=== PATIENT | male | born 1945 | race Caucasian/White ===

== ENCOUNTER 2019-09-06 11:03 | Outpatient (CLI) | payer OTHER, SELFPAY ==
--- NOTE | ~2019-09-06 | CT_ITS ---
EXAMINATION:CT lung screening DATE: 09/06/2019 11:34 INDICATION: Personal history of tobacco dependence. Smoker who quit less than 15 years ago with 30 pa ck year history. TECHNIQUE: Computed tomography (CT) of the chest was performed without intravenous contrast. Automate d exposure control and iterative reconstruction technique were employed. The dose-length product (DLP ) was 144.01 mGy-cm. COMPARISON: Chest CT 09/04/2018 FINDINGS: There is severe emphysema. There are a few scattered 1-2 mm pulmonary nodules. No pleural e ffusion. The heart size is normal. There are coronary artery calcifications. No pericardial effusion. There is chronic mild mediastinal lymphadenopathy, likely reactive. There is a large sliding hiatal hernia. There is a 4.0 cm cyst in left kidney. There is severe cervical, thoracic, and lumbar spondyl osis. There is an old healed fracture of the sternum. IMPRESSION: 1. Lung-RADS category 2: Benign appearance or behavior. Continue annual screening with noncontrast lo w-dose chest CT in 12 months. 2. Large sliding hiatal hernia. Reviewed, dictated and finalized at location A. AND FROST INSULATOR IMPRESSION: 1. Lung-RADS category 2: Benign appearance or behavior. Continue annual screeni ng with noncontrast low-dose chest CT in 12 months. 2. Large sliding hiatal hernia.
== END 2019-09-06 11:04 | disposition home or self-care (01) ==
LOC: ANHIMG 11:11
PROVIDERS: PCP Internal Medicine
DX: Z12.2 Encounter for screening for malignant neoplasm of respiratory organs (principal); Z87.891 Personal history of nicotine dependence; K44.9 Diaphragmatic hernia without obstruction or gangrene
CPT/HCPCS: G0297

== ENCOUNTER 2019-12-26 10:05 | Outpatient (CLI) | payer OTHER, SELFPAY ==
[2019-12-26 10:47] LABS: Basophils Absolute Auto 0.1 K/mm3 (0.0-0.1); Eosinophils Absolute Auto 0.4 K/mm3 (0-0.3); Eosinophils Percent Auto 5.7 % (0-4.4); Hematocrit 39.6 % (42.0-52.0); Hemoglobin 12.1 g/dL (14.0-18.0); Immature Granulocyte Absolute 0.03 K/mm3 (0.00-0.031); Immature Granulocyte Percent A 0.4 % (0-0.5); Lymphocytes Absolute Auto 1.56 K/mm3 (0.9-3.2); Lymphocytes Percent Auto 21.8 % (18.3-44.2); Mean Corpuscular HGB Conc 30.6 g/dl (32-36); Mean Corpuscular Hemoglobin 22.2 pg (26-34); Mean Corpuscular Volume 72.5 fl (80-100); Mean Platelet Volume 9.5 fl (7.4-10.4); Monocytes Absolute Auto 0.8 K/mm3 (0.1-0.6); Monocytes Percent Auto 10.9 % (2.6-8.5); Neutrophils Absolute Auto 4.3 K/mm3 (1.3-6.7); Neutrophils Percent Auto 60.2 % (45.5-73.1); Platelet Count Result 323 k/mm3 (150-375); Red Blood Count 5.46 M/mm3 (4.6-6.20); White Blood Count 7.2 K/mm3 (4.5-10.0)
[2019-12-26 11:09] LABS: LDL Cholesterol Direct 44 mg/dL
[2019-12-26 11:10] LABS: Alanine Aminotransferase 29 U/L (4-50); Albumin Level 4.6 g/dL (3.5-5.1); Alkaline Phosphatase 94 U/L (38-126); Aspartate Amino Transferase 37 U/L (17-59); Bilirubin,Total 0.8 mg/dL (0.2-1.3); Blood Urea Nitrogen 14 mg/dL (9-20); Calcium 9.8 mg/dL (8.4-10.2); Carbon Dioxide 21 mmol/L (22-30); Chloride 106 mmol/L (98-107); Cholesterol 100 mg/dL (0-200); Estimated Glomerular Filt Rate > 60; Glucose 120 mg/dL (75-110); HDL Direct 35 mg/dL; Potassium 4.5 mmol/L (3.4-5.0); Sodium 139 mmol/L (137-145); Triglycerides 77 mg/dL (<150)
[2019-12-26 11:34] LABS: Hemoglobin A1C 6.6 % (<5.7)
[2019-12-26 12:00] LABS: Iron 48 ug/dL (49-181)
[2019-12-26 12:09] LABS: Percent Iron Saturation 11 % (20-50)
[2019-12-26 13:21] LABS: Creatinine Urine 42.6 mg/dL
[2019-12-26 13:26] LABS: MALB Creatinine Ratio 20.2 mg/g (0-30); Microalbumin Urine Random 8.6 mg/L (0-16.7)
[2019-12-26 13:27] LABS: Vitamin D 25 Hydroxy > 126.0 ng/mL
== END 2019-12-26 10:06 | disposition home or self-care (01) ==
LOC: ANHLAB 10:07
PROVIDERS: PCP Internal Medicine; Visit Provider Internal Medicine
DX: D50.9 Iron deficiency anemia, unspecified (principal); E78.2 Mixed hyperlipidemia; E11.65 Type 2 diabetes mellitus with hyperglycemia; I10 Essential (primary) hypertension; Z79.899 Other long term (current) drug therapy
CPT/HCPCS: 36415; 80053; 80061; 82043; 82306; 82728; 83036; 83540; 83550; 84443; 85025

== ENCOUNTER 2020-01-23 01:53 | Outpatient (CLI) | payer OTHER, SELFPAY ==
[2020-01-23 18:39] LABS: SARS-CoV-2 RNA PCR Negative
== END 2020-01-23 01:54 | disposition home or self-care (01) ==
LOC: ANHCOVIDDT 01:54
PROVIDERS: PCP Internal Medicine; Visit Provider Orthopaedic Surgery
DX: Z01.812 Encounter for preprocedural laboratory examination (principal); Z11.59 Encounter for screening for other viral diseases
CPT/HCPCS: 87635; C9803; U0003

== ENCOUNTER 2020-01-23 09:14 | Outpatient (CLI) | payer OTHER, SELFPAY ==
--- NOTE | ~2020-01-23 | XR_ITS ---
EXAMINATION: XR chest 2V DATE: 01/23/2020 09:34 INDICATION: Chronic obstructive pulmonary disease. Preop. TECHNIQUE: Frontal and lateral views of the chest were obtained. COMPARISON: Chest 2 views 04/13/2011, chest CT 09/06/2019 FINDINGS: The lungs demonstrate lucencies, diffuse interstitial opacities, and architectural distorti on, consistent with emphysema. No pleural effusion or pneumothorax. The heart size is normal. There i s mild chronic anterior wedging of multiple vertebral bodies. IMPRESSION: 1. Severe emphysema. Reviewed, dictated and finalized at location A. IMPRESSION: 1. Severe emphysema.
--- NOTE | 2020-01-23 09:15 | ECG_ITS ---
Measurements Intervals [place] Rate: 63 P: 34 WY: 149 QRS: -80 QRSD: 152 T: 36 QT: 436 QTc: 447 Interpretive Statements SINUS RHYTHM RIGHT BUNDLE BRANCH BLOCK LEFT ANTERIOR FASCICULAR BLOCK BASELINE ARTIFACT- I, II, AVR, AVL, AVF, V2-V3 ABNORMAL ECG Electronically Signed On 01-23-2020 11:20:19 CDT by El Sauer D.O.
== END 2020-01-23 09:15 | disposition home or self-care (01) ==
LOC: ANHSURGERY 09:15
PROVIDERS: PCP Internal Medicine; Visit Provider Orthopaedic Surgery
DX: E11.42 Type 2 diabetes mellitus with diabetic polyneuropathy (principal); S82.892A Other fracture of left lower leg, initial encounter for closed fracture; X58.XXXA Exposure to other specified factors, initial encounter; J43.9 Emphysema, unspecified; I45.10 Unspecified right bundle-branch block; I44.4 Left anterior fascicular block
CPT/HCPCS: 71046; 93005

== ENCOUNTER 2020-01-25 02:34 | Day surgery (SDC) | payer OTHER, SELFPAY ==
[2020-01-22 12:40] VITALS: BMI 24.3
--- NOTE | 2020-01-23 15:02 | HP_ITS ---
DATE OF SERVICE: DATE OF SURGERY: 01/25/2020. ADMITTING DIAGNOSIS: Displaced left lateral malleolus fracture. HISTORY OF PRESENT ILLNESS: The patient is a 74-year-old male, patient of Dr. Guzman, presents today for ORIF of his left lateral malleolus fracture. He injured it at home on 01/15. He has a history of a drop foot on his left side. He was not wearing his typical AFO brace and his toe caught causing him to twist his ankle and fall. He went to urgent care 2 days later due to pain in the ankle as well as some swelling. He showed a mildly displaced Bearden B lateral malleolus fracture. He was seen in the office by Dr. Henley on 01/20. At that time, we did a stress view of the ankle, which showed widening of the medial clear space. Because of this, it is considered an unstable fracture. Dr. Henley discussed with him that this is best treated surgically with ORIF of the lateral malleolus with possible syndesmotic fixation as well. PAST MEDICAL HISTORY: He does wear AFOs on both of his lower extremities for the last 10-15 years. He has not been diagnosed for the reason of the weaknesses in his hands as well as his legs. Does have history of diabetes as well as hypertension. CURRENT MEDICATIONS: Takes: 1. Atorvastatin 80 mg daily. 2. Citalopram 20 mg daily. 3. Januvia 50 mg daily. 4. Lisinopril 5 mg daily. 5. Metoprolol 25 mg daily. 6. Omeprazole 20 mg daily. 7. Primidone 50 mg daily. 8. Tamsulosin 0.4 mg daily. ALLERGIES: NO KNOWN DRUG ALLERGIES. FAMILY HISTORY: Noncontributory. SOCIAL HISTORY: He is a former smoker, he quit approximately 12 years ago. PHYSICAL EXAMINATION: GENERAL: He is a 74-year-old male, he is very alert, pleasant, no distress. VITAL SIGNS: Other vital signs per nursing sheet on the morning of surgery. HEENT: Grossly normal. LUNGS: Clear bilaterally. HEART: Regular rate and rhythm. EXTREMITIES: He has pronounced atrophy of both calves, pronounced atrophy in both hands and distal forearms as well. Denies numbness to light touch of his lower extremities. He has moderate to severe tenderness over the lateral malleolus at the junction of the lateral malleolus and fibula. There is evidence of instability to medial, lateral translation of the foot relative to the leg. Suxh-jl-[id number] swelling circumferentially around the ankle. No swelling in the foot or calf. He has no active ankle dorsiflexion or great toe dorsiflexion. He has a 4/5 inversion, eversion, absent knee jerks bilaterally. He is 5 feet 7 inches, 155 pounds. 2+ dorsalis pedis pulse in the foot. IMAGING DATA: X-rays show a Bearden B almost a Bearden C distal fibular fracture with again on stress view showed widening of the medial clear space to 5.5 mm. IMPRESSION: The patient has an unstable lateral malleolus fracture. Again, Dr. Henley discussed with him this would be best treated with ORIF of the lateral malleolus and then possible syndesmotic fixation if needed. Surgical procedure as well as risks and complications were discussed. All questions were answered, we will proceed. The patient will see his primary care doctor for presurgical clearance. Oniel I MT: Cristobal
[2020-01-25] VITALS (9 sets, daily range): BP systolic 105–125; BP diastolic 60–87; PULSE 65–81; RESP 8–20; TEMP 36.9–37.2; O2SAT 92–96
--- NOTE | ~2020-01-25 | XR_ITS ---
EXAMINATION: XR surgery orthopedic EXAM DATE: 01/25/2020 15:31 INDICATION: Left ankle ORIF. TECHNIQUE: Fluoroscopy used during XR surgery orthopedic performed by Dr. Sarthak Henley MD. The DAP for this procedure was 4.1 mGym2. FINDINGS: There is a left distal fibular diaphyseal oblique fracture into the syndesmosis. Final 2 i mages demonstrate a fibular plate with supporting screws bridging the fracture with the mortise appea ring in anatomic alignment. Correlate with procedure note. IMPRESSION: Fluoroscopy used during XR surgery orthopedic. Reviewed, dictated and finalized at location A.
[2020-01-25] MEDS: ACETAMINOPHEN 500 MG TABLET 1000 MG PO (11:28)
[2020-01-25] MEDS: LACTATED RINGERS 1,000 ML 30 ML IV CONT ×2 (11:38→15:53)
[2020-01-25] MEDS: KETOROLAC 15 MG/ML VIAL (*BKC) IV PUSH (11:41)
[2020-01-25 11:46] LABS: Glucose Point of Care 130 (65-105)
--- NOTE | 2020-01-25 12:25 | WPDANESEPPF ---
Anes - Initial Pre Proc Eval Procedure: Operation Date: 01/25/20 13:00 Proposed Procedures p Open Reduction Internal Fixation Left Lateral Malleolus Fracture - Sarthak Henley MD Date/Time: 01/25/20 12:25 Surgeon: Sarthak Henley MD Pre Op Diagnosis: Displaced Left Lateral Malleolus Fracture Patient Data Age: 74 Gender: M Height: 5 ft 7 in Weight: 70.45 kg Last Vital Signs Temp 37.2 C 01/25/20 12:06 Pulse 81 01/25/20 12:06 Resp 20 01/25/20 12:06 BP 125/75 01/25/20 12:06 Pulse Ox 94 01/25/20 12:06 Allergies Allergy/AdvReac Type Severity Reaction Status Date / Time No Known Allergies Allergy Verified 01/25/20 11:03 Home Medications Medication Instructions Recorded Confirmed Type albuterol sulfate 90 mcg/actuation 1 puff INHALATION Q4H PRN 08/21/19 01/25/20 History aerosol inhaler aspirin 81 mg chewable tablet 81 mg PO DAILY 08/21/19 01/25/20 History blood sugar diagnostic #10 each 08/21/19 09/04/19 History blood-glucose meter #1 each 08/21/19 09/04/19 History atorvastatin 80 mg tablet 80 mg PO DAILY #90 tablet 09/04/19 01/25/20 Rx metoprolol tartrate 25 mg tablet 25 mg PO DAILY #90 tablet 10/26/19 01/25/20 Rx citalopram 20 mg tablet See Rx Instructions .ROUTE 11/27/19 01/25/20 Rx .COMPLEX #90 tablet lisinopril 5 mg tablet 5 mg PO DAILY #90 tablet 12/05/19 01/25/20 Rx lancets See Rx Instructions .ROUTE 12/07/19 01/22/20 Rx .COMPLEX #200 each fluticasone fur. 100 mcg-umeclid 1 inhalation INHALATION DAILY #60 12/21/19 01/25/20 Rx 62.5 mcg-vilant 25 mcg each inhalat.powder sitagliptin 50 mg tablet 25 mg PO DAILY #90 tablet 12/21/19 01/25/20 Rx primidone 50 mg tablet See Rx Instructions .ROUTE 01/03/20 01/25/20 Rx .COMPLEX #360 tablet tamsulosin 0.4 mg capsule See Rx Instructions .ROUTE 01/03/20 01/25/20 Rx .COMPLEX #90 cap omeprazole 20 mg capsule,delayed See Rx Instructions .ROUTE 01/21/20 01/25/20 Rx release .COMPLEX #90 cap calcium carbonate-vitamin D3 2 tablet PO DAILY 01/22/20 01/25/20 History [Caltrate with Vitamin D3] Laboratory Tests 01/25/20 11:44 POC Capillary Glucose 130 mg/dl H mg/dl (65-105) Patient hx anesthesia problems: none Family hx anesthesia problems: none PMFSH Past Medical History Medical History Abdominal aortic aneurysm (AAA) 3.0 cm to 5.5 cm in diameter in male Atherosclerotic heart disease of [place] coronary artery without angina pectoris Bilateral arm fractures Contusion of toe with damage to nail Essential hypertension Foot drop, bilateral History of [place] (myocardial infarction) Major 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 Neuropathy Peripheral neuropathy Type 2 diabetes mellitus with diabetic polyneuropathy, without long-term current use of insulin Surgical History Surgical History History of heart artery stent Family History Family History Mother Patient's mother is , Onset Age: 75 Father Family history of chronic obstructive pulmonary disease Social History Social History Smoking status: Former smoker Smoking end date: 07/04/07 Additional smoking assessment comments: HX OF 1PK/DAY/AGE 14 TO 60 Alcohol intake: current Alcohol use details: SOCCIALLY ON WEEKENDS Living arrangements: with family Gender identity (if verbalized by the patient): Male Spiritual care concerns: No Anes - Eval Final PreProcedure Day of Procedure 01/25/20 12:25 Patient weight: normal Heart: regular rate and rhythm Lungs: decreased breath sounds Airway: Mallampati scale class II Neurological: alert and oriented Last oral intake: >/= 8 hours ASA classification: IV Emergent: no Anesthetic plan: proceed Anesthesia type and monitoring: general LMA and standar
--- NOTE | 2020-01-25 13:20 | WPDHPUPDATE1 ---
History and Physical Update Update Date/Time: 01/25/20 13:20 History and Physical has been reviewed, including an updated exam of the patient. There are NO changes in the patient's condition. Risks, benefits, and alternatives have been discussed and questions answered. Patient agrees to proceed with procedure. Also: Patient does have severe emphysema. Uses O2 at home. Also he walked into hospital today with cane.
[2020-01-25] MEDS: ceFAZolin 2 GM/D5W 50 ML 2 GM/50 ML BAG IVPB (13:23)
[2020-01-25] MEDS: ceFAZolin SODIUM 1 GM VIAL IRRIGATION (13:23)
--- NOTE | 2020-01-25 15:55 | P.OPB_ITS ---
Procedure Note - Brief Procedure Note - Brief Date of procedure: 01/25/20 Pre-op diagnosis: Displaced Left Lateral Malleolus Fracture Procedure performed: Open reduction internal fixation left lateral malleolus distal fibular shaft fracture. Syndesmotic clear space stable after internal f ixation Implants: Arthrex 1/3 tubular locking plate Anesthesia: GLMA Surgeon: Sarthak Henley MD Estimated blood loss (mL): 10 Tourniquet time (min): 70 Drains: No Packing: No Pathology: none sent Complications: No immediate complications Condition: stable Disposition: PACU
[2020-01-25 16:08] LABS: Glucose Point of Care 88 (65-105)
--- NOTE | 2020-01-25 16:12 | OP_ITS ---
DATE OF PROCEDURE: 01/25/2020 PREOPERATIVE DIAGNOSIS: Displaced high Bearden B left lateral malleolus fracture with medial clear space widening, left ankle. POSTOPERATIVE DIAGNOSIS: Displaced high Bearden B left lateral malleolus fracture with medial clear space widening, left ankle. PROCEDURE: Open reduction, internal fixation, left distal fibular shaft fracture. DESCRIPTION OF PROCEDURE: The patient was brought to the operating room and general anesthesia was administered. He received weight-based vancomycin and 2 g of Ancef preoperatively. The left leg was prepped and draped in usual fashion after placing a bump under his buttock and a soft towel roll under the knee. The limb was exsanguinated and tourniquet elevated to 250 mmHg. A 4 inch longitudinal incision was made. The main branch of the superficial branch of the peroneal nerve ran parallel to the edge of the fibula just 5 mm anterior to it, and this was carefully mobilized and protected throughout the procedure. The fracture was cleared of hematoma and an anatomic reduction was achieved with a small bone clamp. The plane of the fracture was in an oblique direction and the bone was very narrow in this area, and we therefore used a 2.0 mini frag screw to achieve interfragmentary fixation. This was directed from posterolateral to anteromedial perpendicular to the fracture site and in cortical bone and obtained very good purchase. With anatomic reduction achieved, we then chose a 7 hole 1/3 tubular plate from the Arthrex set. This was a locking plate and we found that the best placement of the plate was going to be around the posterior surface of the proximal portion of the fibula and the lateral surface of the distal portion of the fibula and this required a great deal of complex plate bending, which was achieved successfully. We placed a locking screw distally and a cortical compression screw from the 2nd from most proximal hole and this compressed the plate well to the bone and did not move the fracture line. All but the 2nd from last screw holes were then filled with locking screws. We then brought in fluoro, and using a perfect mortise where the syndesmotic clear space could be well visualized, a valgus stress was applied, which increased the medial space about a millimeter, but there was no widening of the syndesmosis, and therefore I felt that the need for a syndesmotic screw was not present as his syndesmosis was stable. The tourniquet had been let down once we had a couple of screws in the plate. The wound was again thoroughly irrigated with antibiotic solution as it was prior to placement of the plate after bending, and the skin was carefully closed with 3-0 subcutaneous Vicryl and skin glue taking care to avoid injury to the superficial branch of peroneal nerve, which was in excellent condition and was not entrapped in any way by the plate. A well-padded posterior splint was applied. The patient transferred to postop recovery room in good condition. No known complications. Oniel I MT: Cristobal
== END 2020-01-25 18:00 | disposition home or self-care (01) ==
PROVIDERS: PCP Internal Medicine; Visit Provider Orthopaedic Surgery
PROC: (CPT 27784; principal; 2020-01-25 13:00)
DX: S82.62XA Displaced fracture of lateral malleolus of left fibula, initial encounter for closed fracture (principal); M21.372 Foot drop, left foot; I10 Essential (primary) hypertension; E11.42 Type 2 diabetes mellitus with diabetic polyneuropathy; Z79.84 Long term (current) use of oral hypoglycemic drugs; I71.4 Abdominal aortic aneurysm, without rupture; J43.9 Emphysema, unspecified; I25.10 Atherosclerotic heart disease of native coronary artery without angina pectoris; I25.2 Old myocardial infarction; Z79.899 Other long term (current) drug therapy; Z79.82 Long term (current) use of aspirin; Z87.891 Personal history of nicotine dependence; Z95.5 Presence of coronary angioplasty implant and graft; X50.1XXA Overexertion from prolonged static or awkward postures, initial encounter; W18.30XA Fall on same level, unspecified, initial encounter
CPT/HCPCS: 27784; 71046; 87635; 93005; A9270; C1713; C9803; J0690; J1170; J1885; J2250; J2405; J2704; J3010; J3370; J7120; U0003

== ENCOUNTER 2020-03-12 12:15 | Outpatient (RCR) | payer OTHER, SELFPAY ==
--- NOTE | 2020-03-12 13:26 | PTOPEVAL ---
Thank you for referring Aime Arriaga to [facility].? Pt seen for therapy evaluation to provide patient with a HEP. He demonstrates indep with HEP. No additional therapy planned at this time. Will hold chart open for 2 wk. Please review, sign, date and return this plan of care AIDEE. I agree with and certify that the following plan of care is medically necessary. Referring Physician Date Admitting Provider: Attending Provider: Sarthak Henley MD *PT Outpatient Evaluation Start: 03/12/20 12:27 Freq: Status: Active Protocol: Document 03/12/20 12:28 CAP (Rec: 03/12/20 13:11 CAP [id number]) Therapy Assessment Status Assessment Status Assessment Status Evaluation Outpatient Past Medical History Past Medical History Source of Past Medical History Patient,Recalled from Previous Visit, Confirmed with Patient /Family Neurological History Hx Other Neurological Disorders Yes: PERIPHERAL NEUROPATHY, BILATEAL FOOT DROPP - WEARS BRACES Cardiovascular History Hx Aneurysm Yes: AROTIC & POPLITEAL - NOTE FORM DR. 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 Respiratory History Hx Emphysema Yes Gastrointestinal History Hx Gastrointestinal Disorders No Significant History Genitourinary History Hx Benign Prostatic Hyperplasia Yes Musculoskeletal History Hx Arthritis Yes: HANDS Hx Fractures Yes: FX LT ANKLE - HX OF RT ARM, LT ARM Hx Orthopedic Surgery Yes: ORIF RT ARM, ORIF LT ARM, LT ELBOW, left ankle Hx Other Musculoskeletal Disorders Yes: BILATERAL FOOT DROPP- WEARS BRACES Hematological History Hx Anemia Yes Endocrine History Hx Diabetes Yes HEENT History Hx Other HEENT Disorders Yes: GLASSES, BILATERAL HEARING AIDS Integumentary History Hx Eczema Yes: HX OF ARMS, CHEST & BACK Reproductive History Hx Reproductive Disorders No Significant History Psychosocial History Hx Anxiety Yes Hx Depression Yes: HX OF Pain History History of Any Previous or Ongoing No Significant History Instance of Pain Anesthesia History Hx Anesthesia Reactions No Significant History Evaluation Information Problem Diagnosis s/p left ankle ORIF Onse
--- NOTE | 2020-04-07 09:15 | PCPTNOTE ---
Admitting Provider: Attending Provider: Sarthak Henley MD Patient:Aime Arriaga Date of :1945 Discharge Note Patient has not returned for any further treatments since 03/12/2020, therefore he will be discharged at this time. Patient?s initial visit was on 03/12/2020 12:30 and he had a total of 1 visits. He in independent with a home exercise program. He is indep with his ambulation with a cane and ankle brace. He did not require additional skilled therapy services. Thank you for referring this patient to [facility]. Please review, sign, date and return this discharge summary AIDEE. I have been updated about the patient's current status and I agree with discharge from the above service at this time. Referring Physician Date
== END 2020-04-07 15:14 | disposition home or self-care (01) ==
LOC: ANHPT 12:15
PROVIDERS: PCP Internal Medicine; Visit Provider Orthopaedic Surgery
DX: S82.401D Unspecified fracture of shaft of right fibula, subsequent encounter for closed fracture with routine healing (principal)
CPT/HCPCS: 97110; 97161

== ENCOUNTER 2020-03-12 13:44 | Outpatient (CLI) | payer OTHER, SELFPAY ==
[2020-03-12 14:18] LABS: Basophils Percent Auto 0.3 % (0.2-1.2); Eosinophils Absolute Auto 0.1 K/mm3 (0-0.3); Eosinophils Percent Auto 1.1 % (0-4.4); Hematocrit 40.9 % (42.0-52.0); Hemoglobin 12.7 g/dL (14.0-18.0); Immature Granulocyte Absolute 0.09 K/mm3 (0.00-0.031); Lymphocytes Absolute Auto 1.23 K/mm3 (0.9-3.2); Lymphocytes Percent Auto 13.7 % (18.3-44.2); Mean Corpuscular HGB Conc 31.1 g/dl (32-36); Mean Platelet Volume 9.3 fl (7.4-10.4); Monocytes Absolute Auto 0.4 K/mm3 (0.1-0.6); Monocytes Percent Auto 3.9 % (2.6-8.5); Neutrophils Absolute Auto 7.2 K/mm3 (1.3-6.7); Platelet Count Result 364 k/mm3 (150-375); Red Blood Count 5.53 M/mm3 (4.6-6.20)
== END 2020-03-12 13:45 | disposition home or self-care (01) ==
LOC: ANHLAB 13:49
PROVIDERS: PCP Internal Medicine; Visit Provider Internal Medicine
DX: L29.9 Pruritus, unspecified (principal)
CPT/HCPCS: 36415; 85025

== ENCOUNTER 2020-05-24 01:13 | Outpatient (CLI) | payer OTHER, SELFPAY ==
[2020-05-24 19:09] LABS: SARS-CoV-2 RNA PCR Negative
== END 2020-05-24 01:14 | disposition home or self-care (01) ==
LOC: ANHCOVIDDT 01:13
PROVIDERS: PCP Internal Medicine; Visit Provider Internal Medicine Gastroenterology
DX: Z01.818 Encounter for other preprocedural examination (principal); Z20.828 Contact with and (suspected) exposure to other viral communicable diseases
CPT/HCPCS: 87635; C9803; U0003

== ENCOUNTER 2020-05-28 00:48 | Day surgery (SDC) | payer OTHER, SELFPAY ==
[2020-05-20 15:29] VITALS: BMI 24.5
[2020-05-28 06:52] VITALS: BP 139/79; PULSE 107; RESP 24; TEMP 37.1; O2SAT 92
[2020-05-28] MEDS: LACTATED RINGERS 1,000 ML 150 ML IV CONT (06:57)
[2020-05-28 07:01] LABS: Glucose Point of Care 157 (65-105)
--- NOTE | 2020-05-28 07:26 | WPDANESEPPF ---
Anes - Initial Pre Proc Eval Procedure: Operation Date: 05/28/20 08:00 Proposed Procedures p Screening Colonoscopy - Pedro Schultz MD Date/Time: 05/28/20 07:26 Surgeon: Pedro Schultz MD Pre Op Diagnosis: Neoplasm Screening Patient Data Age: 74 Gender: M Height: 5 ft 7 in Weight: 69.6 kg Last Vital Signs Temp 37.1 C 05/28/20 06:52 Pulse 107 H 05/28/20 06:52 Resp 24 H 05/28/20 06:52 BP 139/79 05/28/20 06:52 Pulse Ox 92 05/28/20 06:52 Allergies Allergy/AdvReac Type Severity Reaction Status Date / Time No Known Allergies Allergy Verified 05/20/20 15:33 Home Medications Medication Instructions Recorded Confirmed Type albuterol sulfate 90 mcg/actuation 1 puff INHALATION Q4H PRN 08/21/19 05/20/20 History aerosol inhaler aspirin 81 mg chewable tablet 81 mg PO DAILY 08/21/19 05/20/20 History blood sugar diagnostic #10 each 08/21/19 05/05/20 History blood-glucose meter #1 each 08/21/19 05/05/20 History citalopram 20 mg tablet See Rx Instructions .ROUTE 11/27/19 05/20/20 Rx .COMPLEX #90 tablet lisinopril 5 mg tablet 5 mg PO DAILY #90 tablet 12/05/19 05/20/20 Rx primidone 50 mg tablet See Rx Instructions .ROUTE 01/03/20 05/20/20 Rx .COMPLEX #360 tablet tamsulosin 0.4 mg capsule See Rx Instructions .ROUTE 01/03/20 05/20/20 Rx .COMPLEX #90 cap omeprazole 20 mg capsule,delayed See Rx Instructions .ROUTE 01/21/20 05/20/20 Rx release .COMPLEX #90 cap calcium carbonate-vitamin D3 2 tablet PO DAILY 01/22/20 05/20/20 History [Caltrate with Vitamin D3] sennosides-docusate sodium [Senna 1 tab-cap PO BID #120 cap 01/25/20 05/20/20 Rx Plus] atorvastatin 80 mg tablet 80 mg PO DAILY #90 tablet 03/11/20 05/20/20 Rx metoprolol tartrate 25 mg tablet 25 mg PO DAILY #90 tablet 04/29/20 05/20/20 Rx [id number] 2 inh INHALATION BID 05/20/20 05/20/20 History [Breztri Aerosphere] sitagliptin 50 mg tablet 50 mg PO DAILY #90 tablet 05/21/20 05/28/20 Rx Laboratory Tests 05/28/20 06:59 POC Capillary Glucose 157 mg/dl H mg/dl (65-105) Patient hx anesthesia problems: none Family hx anesthesia problems: none PMFSH Past Medical History Medical History Abdominal aortic aneurysm (AAA) 3.0 cm to 5.5 cm in diameter in male Atherosclerotic heart disease of [place] coronary artery without angina pectoris Bilateral arm fractures Contusion of toe with damage to nail Essential hypertension Foot drop, bilateral History of [place] (myocardial infarction) Major 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 Neuropathy Peripheral neuropathy Type 2 diabetes mellitus with diabetic polyneuropathy, without long-term current use of insulin Surgical History Surgical History History of heart artery stent Family History Family History Mother Patient's mother is , Onset Age: 75 Father Family history of chronic obstructive pulmonary disease Social History Social History Smoking packs per day: 1 Smoking cigarettes per day: 20.0 Years smoked: 45 Smoking pack-years: 45.00 Smoking status: Former smoker Tobacco type: cigarettes Smoking end date: 07/04/07 Additional smoking assessment comments: HX OF 1PK/DAY/AGE 14 TO 60 Alcohol intake: never Substance use: never Substance use type: does not use Living arrangements: with family Gender identity (if verbalized by the patient): Male Spiritual care concerns: No Anes - Eval Final PreProcedure Day of Procedure 05/28/20 07:26 Patient weight: normal Heart: regular rate and rhythm Lungs: decreased breath sounds Airway: Mallampati scale class II Neurological: alert and oriented Last oral intake: >/= 8 hours ASA classification: IV Emergent: no Anesthetic pl
--- NOTE | 2020-05-28 08:02 | PM.HPGS ---
History of Present Illness History of Present Illness Consent: Risks, benefits, and alternatives have been discussed and questions answered. Patient agrees to proceed with procedure. Chief complaint: Neoplasm Screening Narrative: Aime Arriaga is a 74 year old male with large polyp removed in piece-meal 03/2019, here to reassess again Review of Systems Constitutional: Constitutional: Denies headache(s) and Denies weakness Eyes: Eyes: Denies blurry vision ENT: Reports Normal hearing present, Denies headache(s) and Denies neck pain Cardiovascular: Cardiovascular: Denies chest pain and Denies dyspnea Respiratory: Respiratory: Denies dyspnea Gastrointestinal: Gastrointestinal: Reports no additional gastrointestinal complaints Genitourinary: Genitourinary: Denies dysuria Musculoskeletal: Musculoskeletal: Denies neck pain Integumentary/Breasts: Skin/Breast: Denies dry skin Neurologic: Reports Normal hearing present, Denies headache(s) and Denies weakness Psychiatric: Psychiatric: Denies anxiety Endocrine: Endocrine: Denies change in body appearance Hematologic/Lymphatic: Hematologic/Lymphatic: Denies easy bleeding Allergic/Immunologic: Allergic/Immunologic: Denies urticaria PMFSH Past Medical History Medical History (Updated 05/28/20 @ 08:03 by Pedro Schultz MD) Abdominal aortic aneurysm (AAA) 3.0 cm to 5.5 cm in diameter in male Adenomatous colon polyp Atherosclerotic heart disease of [place] coronary artery without angina pectoris Bilateral arm fractures Contusion of toe with damage to nail Essential hypertension Foot drop, bilateral History of [place] (myocardial infarction) Major 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 Neuropathy Peripheral neuropathy Type 2 diabetes mellitus with diabetic polyneuropathy, without long-term current use of insulin Surgical History Surgical History History of heart artery stent Family History Family History Mother Patient's mother is , Onset Age: 75 Father Family history of chronic obstructive pulmonary disease Social History Social History Smoking packs per day: 1 Smoking cigarettes per day: 20.0 Years smoked: 45 Smoking pack-years: 45.00 Smoking status: Former smoker Tobacco type: cigarettes Smoking end date: 07/04/07 Additional smoking assessment comments: HX OF 1PK/DAY/AGE 14 TO 60 Alcohol intake: never Substance use: never Substance use type: does not use Living arrangements: with family Gender identity (if verbalized by the patient): Male Spiritual care concerns: No Meds Home Medications and Allergies Home Medications Medication Instructions Recorded Confirmed Type albuterol sulfate 90 mcg/actuation 1 puff INHALATION Q4H PRN 08/21/19 05/20/20 History aerosol inhaler aspirin 81 mg chewable tablet 81 mg PO DAILY 08/21/19 05/20/20 History blood sugar diagnostic #10 each 08/21/19 05/05/20 History blood-glucose meter #1 each 08/21/19 05/05/20 History citalopram 20 mg tablet See Rx Instructions .ROUTE 11/27/19 05/20/20 Rx .COMPLEX #90 tablet lisinopril 5 mg tablet 5 mg PO DAILY #90 tablet 12/05/19 05/20/20 Rx primidone 50 mg tablet See Rx Instructions .ROUTE 01/03/20 05/20/20 Rx .COMPLEX #360 tablet tamsulosin 0.4 mg capsule See Rx Instructions .ROUTE 01/03/20 05/20/20 Rx .COMPLEX #90 cap omeprazole 20 mg capsule,delayed See Rx Instructions .ROUTE 01/21/20 05/20/20 Rx release .COMPLEX #90 cap calcium carbonate-vitamin D3 2 tablet PO DAILY 01/22/20 05/20/20 History [Caltrate with Vitamin D3] sennosides-docusate sodium [Senna 1 tab-cap PO BID #120 cap 01/25/20 05/20/20 Rx Plus] atorvastatin 80 mg tablet 80 mg PO DAILY #90 tablet 03/11/20 05/20/20 Rx metoprolol tartrate 25 mg tablet 25 mg PO DAILY #90 tablet 04/29/20 05/20/20 R
[2020-05-28 08:47] VITALS: BP 94/60; PULSE 75; RESP 24; O2SAT 94
[2020-05-28 08:57] VITALS: BP 102/65; PULSE 68; RESP 22; O2SAT 96
[2020-05-28 09:07] VITALS: BP 110/69; PULSE 63; RESP 24; O2SAT 94
--- NOTE | 2020-05-28 09:37 | SUR.PHASEII ---
PT WEARS HOME OXYGEN AT 2L/NC. SPOUSE BROUGHT O2 TANK FOR RIDE HOME. PT DENIES DIFFICULTY BREATHING.
== END 2020-05-28 09:30 | disposition home or self-care (01) ==
PROVIDERS: PCP Internal Medicine; Visit Provider Internal Medicine Gastroenterology
PROC: 0DJD8ZZ Inspection of Lower Intestinal Tract, Via Natural or Artificial Opening Endoscopic (ICD-10-PCS; CPT 45378; principal; 2020-05-28 08:00)
DX: Z09 Encounter for follow-up examination after completed treatment for conditions other than malignant neoplasm (principal); K63.5 Polyp of colon; D12.6 Benign neoplasm of colon, unspecified; K57.30 Diverticulosis of large intestine without perforation or abscess without bleeding; K64.8 Other hemorrhoids; I71.4 Abdominal aortic aneurysm, without rupture; I25.10 Atherosclerotic heart disease of native coronary artery without angina pectoris; I10 Essential (primary) hypertension; I25.2 Old myocardial infarction; E11.42 Type 2 diabetes mellitus with diabetic polyneuropathy; Z79.84 Long term (current) use of oral hypoglycemic drugs; Z95.5 Presence of coronary angioplasty implant and graft; Z87.891 Personal history of nicotine dependence
CPT/HCPCS: 45380; 45385; 88305; J2704; J7120

== ENCOUNTER 2020-12-11 13:06 | Outpatient (CLI) | payer OTHER, SELFPAY ==
[2020-12-11 14:02] LABS: Hemoglobin A1C 6.4 % (<5.7)
--- NOTE | 2020-12-11 14:04 | ECHO_ITS ---
Patient Info Name: Aime Arriaga Age: 75 years : 1945 Gender: Male Ht: 65 in Wt: 150 lbs BSA: 1.78 m2 HR: 62 bpm BP: 120 / 76 mmHg Heart Rhythm: Sinus Rhythm Technical Quality: Good Exam Date: 12/11/2020 2:13 PM Exam Location: [facility] Pulmonary Patient Status: Outpatient Admit Date: 12/11/2020 Staff Ordering Physician: Kavon Guzman MD Corporate Training Manager: Bettie Siu RDCS Attending Provider: Kavon Guzmna MD Referring Physician: Genoveva, Alexis Salter MD; Exam Type: CA echo doppler color flow Study Info Indications - NONRHEUMATIC AORTIC VALVE STENOSIS Complete two-dimensional, color flow and Doppler transthoracic echocardiogram is performed. Summary 1. Complete two-dimensional, color flow and Doppler transthoracic echocardiogram is performed. 2. Left ventricular systolic function is normal, estimated at 60-65%. 3. There is no increased left ventricular wall thickness. 4. Left ventricular septal wall motion is abnormal with septal motion related to bundle branch block. 5. The left ventricular diastolic function is grade I diastolic dysfunction. 6. There is mild mitral valve regurgitation. 7. There is mild tricuspid valve regurgitation. 8. Moderate pulmonary hypertension, estimated pulmonary arterial systolic pressure is 52 mmHg. Left Ventricle Left ventricular chamber dimension is normal. Left ventricular systolic function is normal, estimated at 60-65%. There is no increased left ventricular wall thickness. Left ventricular septal wall motion is abnormal with septal motion related to bundle branch block. The left ventricular diastolic function is grade I diastolic dysfunction. Right Ventricle Right ventricular chamber dimension is severely enlarged. Right ventricular systolic function is reduced. Left Atria Left atrial chamber dimension is mildly enlarged. Right Atria Right atrial chamber dimension is mildly enlarged. Aortic Valve The aortic valve is trileaflet. There is mild aortic valve sclerosis. There is no aortic valve stenosis. There is no aortic valve regurgitation. Pulmonic Valve The pulmonic valve is not well visualized. There is mild pulmonic regurgitation. Mitral Valve The mitral valve has thickened leaflets. There is mild mitral valve regurgitation. The mitral valve annulus is mildly calcified. Tricuspid Valve The tricuspid valve leaflets are normal. There is mild tricuspid valve regurgitation. Moderate pulmonary hypertension, estimated pulmonary arterial systolic pressure is 52 mmHg. Pericardium/Pleural The pericardium appears normal. There is no pericardial effusion. Aorta The aortic root size at the sinus of Valsalva is normal. There is mild aortic atherosclerosis. Left Ventricular Outflow Tract Name Value Normal LVOT 2D LVOT Diameter 2.0 cm LVOT Doppler LVOT Peak Gradient 3 mmHg LVOT Mean Gradient 2 mmHg LVOT VTI 19 cm LVOT VTI/AV VTI Ratio 1.0 LVOT Stroke Volume 63 ml LVOT CO
[2020-12-11 14:07] LABS: Alanine Aminotransferase 21 U/L (4-50); Albumin Level 4.4 g/dL (3.5-5.1); Alkaline Phosphatase 108 U/L (38-126); Anion Gap 12 mmol/L (8-16); Aspartate Amino Transferase 26 U/L (17-59); Bilirubin,Total 0.7 mg/dL (0.2-1.3); Blood Urea Nitrogen 15 mg/dL (9-20); Calcium 9.7 mg/dL (8.4-10.2); Carbon Dioxide 23 mmol/L (22-30); Chloride 105 mmol/L (98-107); Estimated Glomerular Filt Rate > 60; Glucose 104 mg/dL (75-110); Potassium 4.8 mmol/L (3.4-5.0); Sodium 140 mmol/L (137-145)
[2020-12-11 14:36] LABS: Prostate Specific Antigen 1.2 ng/mL (< OR = 4.0)
[2020-12-11 15:26] LABS: Creatinine Urine 255.4 mg/dL
[2020-12-11 15:31] LABS: MALB Creatinine Ratio 8.7 mg/g (0-30); Microalbumin Urine Random 22.2 mg/L (0-16.7)
== END 2020-12-11 13:07 | disposition home or self-care (01) ==
PROVIDERS: PCP Internal Medicine; Referring Provider Internal Medicine; Visit Provider Internal Medicine
DX: E11.42 Type 2 diabetes mellitus with diabetic polyneuropathy (principal); R06.02 Shortness of breath; E55.9 Vitamin D deficiency, unspecified; E78.2 Mixed hyperlipidemia; G25.0 Essential tremor; J43.1 Panlobular emphysema; M21.371 Foot drop, right foot; M21.372 Foot drop, left foot; N18.30 Chronic kidney disease, stage 3 unspecified; Z87.891 Personal history of nicotine dependence; F33.42 Major depressive disorder, recurrent, in full remission; Z12.5 Encounter for screening for malignant neoplasm of prostate; I45.4 Nonspecific intraventricular block; I08.1 Rheumatic disorders of both mitral and tricuspid valves; I27.20 Pulmonary hypertension, unspecified
CPT/HCPCS: 36415; 80053; 82043; 82306; 83036; 84153; 84443; 93306; G0103

== ENCOUNTER 2021-01-26 14:14 | Outpatient (CLI) | payer OTHER, SELFPAY ==
--- NOTE | 2021-01-26 | ECHO_ITS ---
Patient Info Name: Aime Arriaga Age: 75 years : 1945 Gender: Male Ht: 67 in Wt: 150 lbs BSA: 1.80 m2 HR: 62 bpm BP: 101 / 61 mmHg Heart Rhythm: Sinus Rhythm Technical Quality: Fair Exam Date: 01/26/2021 3:07 PM Exam Location: [facility] Pulmonary Patient Status: Outpatient Admit Date: 01/26/2021 Staff Ordering Physician: Genoveva, Alexis Salter MD Shactor Helper: Shasha Sampson RDCS Attending Provider: Genoveva, Alexis Salter MD Referring Physician: Genoveva MOBLEY; Exam Type: CA echo limited w bubble study Study Info Indications R53.83 - Other fatigue R06.02 - Shortness of breath J44.9 - CHRONIC OBSTRUCTIVE PULMONARY DISE, UNSPECIFIED Limited two-dimensional transthoracic echocardiogram is performed with agitated saline. Contrast/Agitated Saline Contrast/Ag. Saline: Agitated Saline Amount: 30.00 ml Administered By: Ayah Loja RN Manager [employer] New IV Access: Outer Forearm and Left Site Condition: No extravasation and IV removed Summary 1. Limited echo study to evaluate for intracardiac shunt. 2. Normal left ventricular size and thickness, left ventricular function at the lower limit of normal, EF estimated to be 50-55%. 3. Moderate right ventricular enlargement and hypokinesis. 4. Moderate left atrial enlargement. 5. Brief color-flow Doppler suggests trivial to mild tricuspid regurgitation. 6. Trivial shunt noted during normal respiration with 2 or 3 bubbles crossing over to the left side. With Valsalva there was a mild shunt present consistent with a small patent foramen ovale. 7. Normal sinus rhythm. Left Ventricle Left ventricular chamber dimension is normal. Left ventricular systolic function is normal, estimated at 50-55%. There is no increased left ventricular wall thickness. Left ventricular septal wall motion is normal. The left ventricular diastolic function is indeterminate. Right Ventricle Right ventricular chamber dimension is moderately enlarged. Right ventricular systolic function is reduced. Left Atria Left atrial chamber dimension is moderately enlarged. Right Atria Right atrial chamber dimension is normal. Atrial Septum Suspected patent foramen ovale visualized by agitated saline imaging. Aortic Valve The aortic valve is not well visualized. There is no aortic valve sclerosis. There is no aortic valve stenosis. There is no aortic valve regurgitation. Pulmonic Valve The pulmonic valve is not well visualized. There is no pulmonic valve stenosis. There is no pulmonic regurgitation. Mitral Valve The mitral valve has normal leaflets. There is no mitral valve stenosis. There is no mitral valve regurgitation. Tricuspid Valve The tricuspid valve leaflets are normal. There is no significant tricuspid valve stenosis. There is no tricuspid valve regurgitation. No pulmonary hypertension, estimated pulmonary arterial systolic pressure is Empty. Pericardium/Pleural The pericardium appears normal. There is no pericardial effusion. Inferior Vena Cava Not well visualized inferior vena cava with >50% collapse upon inspiration consistent with Empty right atrial pressure, Empty. Aorta The aortic root size at the sinus of Valsalva is not well visualized. The prox ascending aorta size is normal. Report Signatures
== END 2021-01-26 14:15 | disposition home or self-care (01) ==
PROVIDERS: PCP Internal Medicine; Visit Provider Internal Medicine
DX: J44.9 Chronic obstructive pulmonary disease, unspecified (principal); R06.02 Shortness of breath; R53.83 Other fatigue
CPT/HCPCS: 93308; 96375

== ENCOUNTER 2021-06-26 03:02 | Inpatient (IN) | payer OTHER, SELFPAY ==
[2021-06-26] VITALS (25 sets, daily range): BP systolic 92–134; BP diastolic 57–92; PULSE 68–101; RESP 20–45; TEMP 36.3–37.3; O2SAT 88–99
--- NOTE | 2021-06-26 | ECHO_ITS ---
Patient Info Name: Aime Arriaga Age: 76 years : 1945 Gender: Male Ht: 70 in Wt: 155 lbs BSA: 1.86 m2 HR: 89 bpm BP: 125 / 69 mmHg Heart Rhythm: Sinus Rhythm Exam Date: 06/26/2021 11:38 AM Exam Location: [facility] Pulmonary Patient Status: Inpatient Admit Date: 06/26/2021 Staff Ordering Physician: Eddie Reynaga MD Labor Relations Worker: Richie Benoit, MARISELA, RT Attending Provider: Choco Bonds MD Referring Physician: Juhi FARRELL; Exam Type: CA echo doppler color flow Study Info Indications R06.02 - Shortness of breath Complete two-dimensional, color flow and Doppler transthoracic echocardiogram is performed. Summary 1. Complete two-dimensional, color flow and Doppler transthoracic echocardiogram is performed. 2. Left ventricular chamber dimension is normal. 3. Left ventricular systolic function is normal, estimated at 60-65%. 4. There is mildly increased left ventricular wall thickness. 5. The left ventricular diastolic function is grade I diastolic dysfunction. 6. Right ventricular chamber dimension is moderately enlarged. 7. Right ventricular systolic function is reduced. 8. Left atrial chamber dimension is moderately enlarged. 9. Right atrial chamber dimension is mildly enlarged. 10. There is mild mitral valve regurgitation. 11. There is mild tricuspid valve regurgitation. 12. Moderate pulmonary hypertension, estimated pulmonary arterial systolic pressure is 45 mmHg. Left Ventricle Left ventricular chamber dimension is normal. Left ventricular systolic function is normal, estimated at 60-65%. There is mildly increased left ventricular wall thickness. The left ventricular diastolic function is grade I diastolic dysfunction. Right Ventricle Right ventricular chamber dimension is moderately enlarged. Right ventricular systolic function is reduced. Left Atria Left atrial chamber dimension is moderately enlarged. Right Atria Right atrial chamber dimension is mildly enlarged. Atrial Septum Intact interatrial septum visualized by color flow imaging. Aortic Valve The aortic valve is trileaflet. There is moderate aortic valve sclerosis. There is no aortic valve stenosis. There is trace aortic valve regurgitation. Pulmonic Valve The pulmonic valve is normal. There is no pulmonic valve stenosis. There is trace pulmonic regurgitation. Mitral Valve The mitral valve has normal leaflets. There is no mitral valve stenosis. There is mild mitral valve regurgitation. Tricuspid Valve The tricuspid valve leaflets are normal. There is no significant tricuspid valve stenosis. There is mild tricuspid valve regurgitation. Moderate pulmonary hypertension, estimated pulmonary arterial systolic pressure is 45 mmHg. Pericardium/Pleural The pericardium appears normal. There is no pericardial effusion. Inferior Vena Cava Normal inferior vena cava with <50% collapse upon inspiration consistent with elevated right atrial pressure, 10 mmHg. Aorta The aortic root size at the sinus of Valsalva is normal. Left Ventricular Outflow Tract Name Value Normal LVOT 2D LVOT Diameter 2.0 cm LVOT Doppler
--- NOTE | ~2021-06-26 | XR_ITS ---
XR chest 1V portable DATE: 06/26/2021 03:28 INDICATION: Shortness of breath. History of emphysema. TECHNIQUE: Portable AP chest on 06/22/2021 at 0320 hours COMPARISON: 01/23/2020 2 view chest FINDINGS: There are extensive interstitial infiltrate throughout the right lung and mid and lower lef t lung; differential diagnosis includes bilateral pneumonia and/or pulmonary edema. There is a small right pleural effusion. Heart size appears normal. Is aortic calcification and unfolding. Diffuse osteopenia. Osteoarthritic change at the glenohumeral joints. IMPRESSION: Extensive interstitial infiltrate throughout the right lung and left mid and lower lung; differential diagnosis includes pulmonary edema and/or pneumonia Small right pleural effusion Reviewed, dictated and finalized at location A. TRONIC MUSICAL INSTRUMENT REPAIRER IMPRESSION: Extensive interstitial infiltrate throughout the right lung and lef t mid and lower lung; differential diagnosis includes pulmonary edema and/or pn [place] Small right pleural effusion
--- NOTE | ~2021-06-26 | XR_ITS ---
XR chest 2V DATE: 06/28/2021 08:45 INDICATION: Shortness of breath TECHNIQUE: AP and lateral views COMPARISON: 06/26/2021 portable AP chest FINDINGS: There is interval mild improvement of the diffuse right lung and left mid and lower lung in filtrate since 06/22/2021. There is extensive aortic calcification as well as thoracic aortic unfolding. Heart size appears with in normal range. No pleural effusion or pneumothorax is evident. IMPRESSION: Interval mild improvement of bilateral pulmonary infiltrates since 06/22/2021 Reviewed, dictated and finalized at location A. HASING ENGINEER
--- NOTE | 2021-06-26 03:01 | ECG_ITS ---
Measurements Intervals [place] Rate: 102 P: 46 FL: 146 QRS: 267 QRSD: 142 T: 42 QT: 391 QTc: 511 Interpretive Statements SINUS TACHYCARDIA FREQUENT VENTRICULAR PREMATURE COMPLEXES RIGHT AXIS DEVIATION RIGHT BUNDLE BRANCH BLOCK AND POSSIBLE RIGHT VENTRICULAR HYPERTROPHY ABNORMAL ECG Electronically Signed On 06-26-2021 8:31:33 [employer]URNER by El Sauer D.O.
--- NOTE | 2021-06-26 03:14 | ED.SOB ---
HPI - SOB/Dyspnea General Chief Complaint: Shortness of Breath/Dyspnea Stated Complaint: SOB Time Seen by Provider: 06/26/21 03:13 Source: patient and EMS Mode of arrival: EMS Limitations: no limitations History of Present Illness HPI Narrative: Patient is a 76-year-old male brought in by EMS in respiratory distress. Per EMS his oxygen saturation was 88% on 4 L when they arrived, he was tachypneic and in severe distress so he was placed on a CPAP given albuterol neb and decadron . Patient has a history of COPD and on 4 L continuously at home. Patient states that he is usually short of breath, that is nothing new but tonight his inhalers did not work, he became more short of breath, and that is why called EMS. Patient denies any chest pain, abdominal pain, nausea, vomiting, diaphoresis, fever or chills. Related Data Home Medications Medication Instructions Recorded Confirmed albuterol sulfate 90 mcg/actuation 1 puff INHALATION Q4H PRN 08/21/19 04/08/21 aerosol inhaler aspirin 81 mg chewable tablet 81 mg PO DAILY 08/21/19 04/08/21 blood sugar diagnostic #10 each 08/21/19 04/08/21 blood-glucose meter #1 each 08/21/19 04/08/21 calcium carbonate-vitamin D3 2 tablet PO DAILY 01/22/20 04/08/21 [Caltrate with Vitamin D3] [id number] 2 inh INHALATION BID 05/20/20 04/08/21 [Breztri Aerosphere] cholecalciferol (vitamin D3) 25 25 mcg PO DAILY 12/12/20 04/08/21 mcg (1,000 unit) capsule Allergies Allergy/AdvReac Type Severity Reaction Status Date / Time No Known Allergies Allergy Verified 04/08/21 10:42 Review of Systems Review of Systems: All systems reviewed & are unremarkable except as noted in HPI and below Constitutional: Constitutional: Denies body ache(s), Denies chills, Denies excessive sweating, Denies fatigue, Denies fever(s), Denies headache(s), Denies lethargy, Denies malaise, Denies weakness and Denies weight loss Eyes: Eyes: Denies blurry vision, Denies change in vision and Denies loss of vision ENT: Denies dizziness, Denies ear discharge, Denies headache(s), Denies lip swelling, Denies epistaxis, Denies nasal congestion, Denies neck pain, Denies throat swelling and Denies tongue swelling Cardiovascular: Cardiovascular: Denies chest pain, Denies chest pain at rest, Denies chest pain with activity, Denies diaphoresis, Denies rapid heart rate, Denies edema, Denies irregular heart rhythm, Denies lightheadedness and Denies palpitations Respiratory: Respiratory: Denies chest congestion and Denies hemoptysis Gastrointestinal: Gastrointestinal: Denies abdominal pain, Denies melena, Denies hematochezia, Denies diarrhea, Denies nausea, Denies vomiting and Denies hematemesis Musculoskeletal: Musculoskeletal: Denies abnormal gait, Denies deformity, Denies joint swelling, Denies limited range of motion, Denies neck pain and Denies numbness Neurologic: Denies Abnormal speech present, Denies abnormal gait, Denies confusion, Denies dizziness, Denies headache(s), Denies focal weakness, Denies loss of vision, Denies numbness, Denies Other visual disturbances, Denies Sensory deficit (Neuro) and Denies weakness Psychiatric: Psychiatric: Denies confusion, Denies depression, Denies auditory hallucinations, Denies homicidal ideation and Denies suicidal ideation Endocrine: Endocrine: Denies cold intolerance, Denies excessive sweating, Denies fatigue, Denies heat intolerance and Denies palpitations Hematologic/Lymphatic: Hematologic/Lymphatic: Denies easy bleeding and Denies easy bruising Allergic/Immunologic: Allergic/Immunologic: Denies lip swelling, Denies throat swelling and Denies tongue swelling PMFSH Past Medical History Medical History Abdominal aortic aneurysm (AAA) 3.0 cm to 5.5 cm in diameter in male Adenomatous colon polyp Atherosclerotic heart disease of [place] coronary artery without angina pectoris Bilateral arm fractures Contusion of toe with da
[2021-06-26] MEDS: IPRATROPIUM BR 0.02% INH SOLN 0.5 MG/2.5 ML VIAL INHALATION ×2 (03:19→10:09)
[2021-06-26] MEDS: ALBUTEROL SULFATE NEB 2.5 MG/0.5 ML INH 5 MG INHALATION ×2 (03:19→10:09)
[2021-06-26 03:58] LABS: Basophils Absolute Auto 0.1 K/mm3 (0.0-0.1); Basophils Percent Auto 0.9 % (0.2-1.2); Eosinophils Absolute Auto 0.7 K/mm3 (0-0.3); Eosinophils Percent Auto 8.4 % (0-4.4); Hematocrit 43.7 % (42.0-52.0); Hemoglobin 13.8 g/dL (14.0-18.0); Immature Granulocyte Absolute 0.05 K/mm3 (0.00-0.031); Immature Granulocyte Percent A 0.6 % (0-0.5); Lymphocytes Percent Auto 26.9 % (18.3-44.2); Mean Corpuscular HGB Conc 31.6 g/dl (32-36); Mean Corpuscular Hemoglobin 25.4 pg (26-34); Mean Corpuscular Volume 80.5 fl (80-100); Mean Platelet Volume 10.2 fl (7.4-10.4); Neutrophils Absolute Auto 4.2 K/mm3 (1.3-6.7); Neutrophils Percent Auto 51.2 % (45.5-73.1); Platelet Count Result 314 k/mm3 (150-375); Red Blood Count 5.43 M/mm3 (4.6-6.20); Red Cell Distribution Width 19.5 % (11.5-14.5); White Blood Count 8.2 K/mm3 (4.5-10.0)
[2021-06-26 04:19] LABS: NT Pro B Type Natriuretic Pept 429 pg/mL (5-100); Troponin I 0.026 ng/mL (0.000-0.034)
[2021-06-26 04:28] LABS: EDCOVIDSCREEN Negative (Negative)
[2021-06-26 04:30] LABS: Alanine Aminotransferase 30 U/L (4-50); Albumin Level 4.4 g/dL (3.5-5.1); Alkaline Phosphatase 125 U/L (38-126); Anion Gap 19 mmol/L (8-16); Aspartate Amino Transferase 31 U/L (17-59); Bilirubin,Total 0.5 mg/dL (0.2-1.3); Blood Urea Nitrogen 13 mg/dL (9-20); Calcium 9.3 mg/dL (8.4-10.2); Carbon Dioxide 17 mmol/L (22-30); Chloride 102 mmol/L (98-107); Estimated CRCL calculation 55 ml/min; Estimated Glomerular Filt Rate > 60; Glucose 199 mg/dL (65-110); Potassium 4.3 mmol/L (3.4-5.0); Sodium 138 mmol/L (137-145)
[2021-06-26 04:33] LABS: Lactic Acid Reflex 7.9 mmol/L (0.7-2.1)
[2021-06-26] MEDS: LACTATED RINGERS 1,000 ML 250 ML IV CONT (04:45)
[2021-06-26 05:58] LABS: Glucose Point of Care 221 mg/dl (65-105)
--- NOTE | 2021-06-26 06:02 | PC.NURSE ---
attempted to call report nurse will call back
[2021-06-26 06:54] LABS: Reflex Lactic Acid Yes or No Add Lactic
[2021-06-26 07:59] LABS: Lactic Acid 3.6 mmol/L (0.7-2.1)
[2021-06-26] MEDS: FUROSEMIDE INJ 40 MG/4 ML VIAL IV PUSH (10:21)
--- NOTE | 2021-06-26 10:25 | PM.CNCAR ---
Assessment and Plan Assessment and plan (1) Acute exacerbation of chronic obstructive pulmonary disease: Code(s): J44.1 - Chronic obstructive pulmonary disease with (acute) exacerbation Status: Acute Assessment and Plan: His dyspnea is presumably caused by acute on chronic obstructive pulmonary disease. He is improving with current regimen. A mildly elevated BNP in this scenario means very little. Will defer COPD treatment to hospitalist/pulmonology. Will stop his IV fluids. Check a 2D echo. Reduce his furosemide to 20 mg IV daily (2) Chronic respiratory failure with hypoxia: Code(s): J96.11 - Chronic respiratory failure with hypoxia Status: Acute (3) Aortic stenosis: Qualifiers: Cardiac valve disease etiology: nonrheumatic Qualified Code(s): I35.0 - Nonrheumatic aortic (valve) stenosis Code(s): I35.0 - Nonrheumatic aortic (valve) stenosis Status: Acute Assessment and Plan: 2D echocardiogram Doppler will be ordered to evaluate LV size and function as well as the severity of his aortic stenosis. (4) Atherosclerotic heart disease of [place] coronary artery without angina pectoris: Qualifiers: [place] vs. transplanted heart: [place] heart Qualified Code(s): I25.10 - Atherosclerotic heart disease of [place] coronary artery without angina pectoris Code(s): I25.10 - Atherosclerotic heart disease of [place] coronary artery without angina pectoris Status: Acute Assessment and Plan: Continue his current home dose of aspirin, statin, lisinopril, metoprolol (5) Hypertension: Code(s): I10 - Essential (primary) hypertension Status: Acute Assessment and Plan: Continue home regimen History of Present Illness History of Present Illness Consult date/time: 06/26/21 10:25 Requesting physician: Gorge Calhoun MD Consult reason: congestive heart failure Reason For Visit: Acute respiratory failure, pneumonia Narrative: Reason consultation: Is congestive heart failure Date of service 06/26/[address] Calhoun History patient is a 76-year-old male who has a history of COPD on 4 L of oxygen continuously at home who presented to the hospital with worsening shortness of breath and an oxygen saturation of 88%. Typically as dyspnea which response to nebulizer treatments but yesterday he did not have any improvement in his dyspnea and he decided to come to the hospital for further workup evaluation. He does have a coronary history but has had no chest pain. He denies any syncope, presyncope, paroxysmal nocturnal dyspnea, orthopnea, edema or palpitations. He BNP was ordered which was minimally elevated at a little over 400 which I presume has triggered this cardiology consultation. He currently is feeling better with his current regimen. He is on a combination of IV fluids and Lasix at this point which is confusing. He is rapid COVID tested negative but PCR pending. Review of Systems Review of Systems: All systems reviewed & are unremarkable except as noted in HPI and below Constitutional: Constitutional: Denies weakness Eyes: Eyes: Denies blurry vision ENT: Reports Normal hearing present Cardiovascular: Cardiovascular: Denies chest pain Respiratory: Respiratory: Reports dyspnea Gastrointestinal: Gastrointestinal: Denies abdominal pain Genitourinary: Genitourinary: Denies dysuria Musculoskeletal: Musculoskeletal: Denies neck pain Integumentary/Breasts: Skin/Breast: Denies dry skin Neurologic: Denies headache(s) Psychiatric: Psychiatric: Denies anxiety Endocrine: Endocrine: Denies fatigue Hematologic/Lymphatic: Hematologic/Lymphatic: Denies easy bleeding Allergic/Immunologic: Allergic/Immunologic: Denies GI upset with certain foods PMFSH Past Medical History Medical History (Updated 06/26/21 @ 10:39 by Eddie Reynaga MD) Abdominal aortic aneurysm (AAA) 3.0 cm to 5.5 cm in diameter in male A
--- NOTE | 2021-06-26 10:28 | ADMGEN ---
This patient, Aime Arriaga, was admitted to IMU Room 210-01 at 0730. Patient/family oriented to hospital policies and general routines including ID bracelet, bed and alarms, visiting hours, pain management, procedures, bathroom and other care routines, personal items, smoking policy, room service/diet, and visiting hours. Information on how to activate the Rapid Response Team has been discussed. Patient/Family are encouraged to report perceived risks to care and to ask questions if they do not understand what they are told or what they should do.
[2021-06-26 11:01] LABS: Hemoglobin A1C 6.7 % (<5.7)
[2021-06-26] MEDS: methylPREDNISolone SOD SUCC 125 MG VIAL 60 MG IV PUSH ×3 (11:31→23:31)
[2021-06-26] MEDS: CHOLECALCIFEROL 1,000 UNITS TABLET 1000 UNITS PO (11:32)
[2021-06-26] MEDS: CITALOPRAM HYDROBROMIDE 20 MG TABLET PO (11:32)
[2021-06-26] MEDS: TAMSULOSIN HCL 0.4 MG CAPSULE BY MOUTH (11:32)
[2021-06-26] MEDS: METOPROLOL TARTRATE 25 MG TABLET BY MOUTH (11:32)
[2021-06-26] MEDS: ATORVASTATIN 40 MG TABLET 80 MG PO (11:32)
[2021-06-26] MEDS: lisinopriL 5 MG TABLET PO (11:32)
[2021-06-26] MEDS: LACTATED RINGERS 1,000 ML 75 ML IV CONT (11:37)
[2021-06-26] MEDS: ASPIRIN 81 MG CHEWABLE TABLET PO (12:04)
[2021-06-26] MEDS: hydrOXYzine HCL 10 MG TABLET PO ×2 (13:08→21:05)
[2021-06-26 13:29] LABS: Glucose Point of Care 165 mg/dl (65-105)
--- NOTE | 2021-06-26 14:03 | PM.IMHP ---
H&P: HPI History of Present Illness Date/Time: 06/26/21 14:03 ED-HPI Narrative: Patient is a 76-year-old male brought in by EMS in respiratory distress. Per EMS his oxygen saturation was 88% on 4 L when they arrived, he was tachypneic and in severe distress so he was placed on a CPAP given albuterol neb and decadron . Patient has a history of COPD and on 4 L continuously at home. Patient states that he is usually short of breath, that is nothing new but tonight his inhalers did not work, he became more short of breath, and that is why called EMS. Patient denies any chest pain, abdominal pain, nausea, vomiting, diaphoresis, fever or chills. 06/26/2021 Interval history: Patient with chronic respiratory failure on home oxygen 4 L was found to be hypoxic and saturating 88% on 4 L patient was placed on CPAP and was given steroid, most likely patient symptoms are stemming exacerbation of COPD patient is started on methylprednisone 60 mg every 6 hours will continue DuoNeb, will also start the patient Lasix 40 mg IV to help diurese the patient this may help is oxygen, chest x-ray showed pulmonary edema Vs Pneumonia started patient on zithromax and ceftriaxone, will gently diurese the patient, patient is being tested for COVID-19 A currently isolated, is feeling much better compared to when he arrived, denies any fever or chills, will continue to monitor the patient as symptoms improved will taper the methylprednisone. 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 Bilateral arm fractures Contusion of toe with damage to nail Essential hypertension Foot drop, bilateral History of [place] (myocardial infarction) Major 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 Neuropathy Peripheral neuropathy Type 2 diabetes mellitus with diabetic polyneuropathy, without long-term current use of insulin Surgical History Surgical History History of heart artery stent Family History Family History Mother Patient's mother is , Onset Age: 75 Father Family history of chronic obstructive pulmonary disease Social History Social History Smoking packs per day: 1 Smoking cigarettes per day: 20.0 Years smoked: 35 Smoking pack-years: 35.00 Smoking status: Former smoker Tobacco type: cigarettes Smoking end date: 02/17/05 Additional smoking assessment comments: HX OF 1PK/DAY/AGE 14 TO 60 Alcohol intake: never Alcohol use details: SOCCIALLY ON WEEKENDS Substance use: never Substance use type: does not use Gender identity (if verbalized by the patient): Male Spiritual care concerns: No Meds Home Medications and Allergies Home Medications Medication Instructions Recorded Confirmed Type aspirin 81 mg chewable tablet 81 mg PO DAILY 08/21/19 06/26/21 History blood sugar diagnostic #10 each 08/21/19 06/26/21 History blood-glucose meter #1 each 08/21/19 06/26/21 History cholecalciferol (vitamin D3) 25 25 mcg PO DAILY 12/12/20 06/26/21 History mcg (1,000 unit) capsule sitagliptin 50 mg tablet 50 mg PO DAILY #90 tablet 01/30/21 06/26/21 Rx atorvastatin 80 mg tablet 80 mg PO DAILY #90 tablet 04/13/21 06/26/21 Rx citalopram 20 mg PO DAILY 06/26/21 06/26/21 History glucosamine HCl 1,500 mg PO DAILY 06/26/21 06/26/21 History hydroxyzine HCl 10 mg PO TID 06/26/21 06/26/21 History lisinopril 5 mg PO DAILY 06/26/21 06/26/21 History metopr
[2021-06-26 15:11] LABS: Lactic Acid Reflex 2.8 mmol/L (0.7-2.1)
[2021-06-26 17:44] LABS: Glucose Point of Care 165 mg/dl (65-105)
[2021-06-26 19:18] LABS: SARS-CoV-2 RNA PCR Negative
[2021-06-26] MEDS: ENOXAPARIN 40 MG/0.4 ML SYRINGE SUB-Q (20:58)
[2021-06-26] MEDS: PRIMIDONE 50 MG TABLET PO (21:04)
[2021-06-26 21:14] LABS: Glucose Point of Care 167 mg/dl (65-105)
[2021-06-27] VITALS (21 sets, daily range): BP systolic 81–105; BP diastolic 51–71; PULSE 60–88; RESP 15–24; TEMP 36.2–36.6; O2SAT 91–99
[2021-06-27 05:19] LABS: Basophils Percent Auto 0.1 % (0.2-1.2); Hematocrit 38.4 % (42.0-52.0); Hemoglobin 12.5 g/dL (14.0-18.0); Immature Granulocyte Absolute 0.05 K/mm3 (0.00-0.031); Immature Granulocyte Percent A 0.6 % (0-0.5); Lymphocytes Absolute Auto 0.89 K/mm3 (0.9-3.2); Lymphocytes Percent Auto 11.1 % (18.3-44.2); Mean Corpuscular HGB Conc 32.6 g/dl (32-36); Mean Corpuscular Hemoglobin 24.9 pg (26-34); Mean Corpuscular Volume 76.5 fl (80-100); Mean Platelet Volume 9.7 fl (7.4-10.4); Monocytes Absolute Auto 0.3 K/mm3 (0.1-0.6); Monocytes Percent Auto 3.9 % (2.6-8.5); Neutrophils Absolute Auto 6.8 K/mm3 (1.3-6.7); Neutrophils Percent Auto 84.3 % (45.5-73.1); Platelet Count Result 327 k/mm3 (150-375); Red Blood Count 5.02 M/mm3 (4.6-6.20); Red Cell Distribution Width 18.5 % (11.5-14.5)
[2021-06-27 05:37] LABS: Alanine Aminotransferase 21 U/L (4-50); Albumin Level 3.9 g/dL (3.5-5.1); Alkaline Phosphatase 97 U/L (38-126); Anion Gap 10 mmol/L (8-16); Aspartate Amino Transferase 36 U/L (17-59); Bilirubin,Total 0.6 mg/dL (0.2-1.3); Blood Urea Nitrogen 20 mg/dL (9-20); Calcium 9.4 mg/dL (8.4-10.2); Carbon Dioxide 22 mmol/L (22-30); Chloride 104 mmol/L (98-107); Estimated CRCL calculation 61 ml/min; Estimated Glomerular Filt Rate > 60; Glucose 159 mg/dL (65-110); Magnesium 2.1 mg/dL (1.6-2.3); Potassium 4.2 mmol/L (3.4-5.0); Sodium 136 mmol/L (137-145)
[2021-06-27] MEDS: hydrOXYzine HCL 10 MG TABLET PO ×3 (06:20→21:40)
[2021-06-27] MEDS: methylPREDNISolone SOD SUCC 125 MG VIAL 60 MG IV PUSH ×3 (06:20→17:11)
[2021-06-27] MEDS: ATORVASTATIN 40 MG TABLET 80 MG PO (08:46)
[2021-06-27] MEDS: ENOXAPARIN 40 MG/0.4 ML SYRINGE SUB-Q ×2 (08:46→21:39)
[2021-06-27] MEDS: lisinopriL 5 MG TABLET PO (08:46)
[2021-06-27] MEDS: CHOLECALCIFEROL 1,000 UNITS TABLET 1000 UNITS PO (08:46)
[2021-06-27] MEDS: CITALOPRAM HYDROBROMIDE 20 MG TABLET PO (08:47)
[2021-06-27] MEDS: PRIMIDONE 50 MG TABLET PO ×2 (08:47→21:40)
[2021-06-27] MEDS: METOPROLOL TARTRATE 25 MG TABLET BY MOUTH (08:47)
[2021-06-27] MEDS: TAMSULOSIN HCL 0.4 MG CAPSULE BY MOUTH (08:47)
[2021-06-27] MEDS: ASPIRIN 81 MG CHEWABLE TABLET PO (08:49)
[2021-06-27] MEDS: FUROSEMIDE INJ 40 MG/4 ML VIAL 20 MG IV PUSH (08:49)
[2021-06-27 09:09] LABS: Glucose Point of Care 147 mg/dl (65-105)
[2021-06-27] MEDS: IPRATROPIUM BR 0.02% INH SOLN 0.5 MG/2.5 ML VIAL INHALATION ×2 (10:30→21:05)
[2021-06-27] MEDS: ALBUTEROL SULFATE NEB 2.5 MG/0.5 ML INH 5 MG INHALATION ×2 (10:30→21:05)
[2021-06-27 12:12] LABS: Glucose Point of Care 141 mg/dl (65-105)
--- NOTE | 2021-06-27 13:35 | PC.NURSE ---
This patient, Aime Arriaga, was transferred to [[id number] ] on 06/27/21 at 1320. Personal belongings sent with patient. Report given to [KASHIF Roger @ [phone] ]. Appropriate documentation sent with patient.
--- NOTE | 2021-06-27 13:53 | PM.IMPN ---
Progress Note: A&P Assessment and Plan (1) Acute hypoxemic respiratory failure: Code(s): J96.01 - Acute respiratory failure with hypoxia Status: Acute Assessment and Plan: 06/26/21 14:03 ED-HPI Narrative: Patient is a 76-year-old male brought in by EMS in respiratory distress. Per EMS his oxygen saturation was 88% on 4 L when they arrived, he was tachypneic and in severe distress so he was placed on a CPAP given albuterol neb and decadron . Patient has a history of COPD and on 4 L continuously at home. Patient states that he is usually short of breath, that is nothing new but tonight his inhalers did not work, he became more short of breath, and that is why called EMS. Patient denies any chest pain, abdominal pain, nausea, vomiting, diaphoresis, fever or chills. 06/26/2021 Interval history: Patient with chronic respiratory failure on home oxygen 4 L was found to be hypoxic and saturating 88% on 4 L patient was placed on CPAP and was given steroid, most likely patient symptoms are stemming exacerbation of COPD patient is started on methylprednisone 60 mg every 6 hours will continue DuoNeb, will also start the patient Lasix 40 mg IV to help diurese the patient this may help is oxygen, chest x-ray showed pulmonary edema Vs Pneumonia started patient on zithromax and ceftriaxone, will gently diurese the patient, patient is being tested for COVID-19 A currently isolated, is feeling much better compared to when he arrived, denies any fever or chills, will continue to monitor the patient as symptoms improved will taper the methylprednisone. 06/27/2021 Interval history: patient COVID test is negative and off isolation Patient with chronic respiratory failure on home oxygen 4 L was found to be hypoxic and saturating 88% on 4 L patient was placed on CPAP and was given steroid, most likely patient symptoms are stemming exacerbation of COPD patient is started on methylprednisone 60 mg every 6 hours will continue DuoNeb, will also start the patient Lasix 20 mg IV to help diurese the patient this may help is oxygen, chest x-ray showed pulmonary edema Vs Pneumonia started patient on zithromax and ceftriaxone, will gently diurese the patient, patient is being tested for COVID-19 A currently isolated, is feeling much better compared to when he arrived, denies any fever or chills, will continue to monitor the patient as symptoms improved will taper the methylprednisone. (2) Pneumonia: Qualifiers: Laterality: bilateral Lung location: unspecified part of lung Pneumonia type: due to unspecified organism Qualified Code(s): J18.9 - Pneumonia, unspecified organism Code(s): J18.9 - Pneumonia, unspecified organism Status: Acute Assessment and Plan: patient being treated with Rocephin and azithromycin will continue to monitor repeat chest x-ray in 2days today (3) Acute exacerbation of chronic obstructive pulmonary disease: Code(s): J44.1 - Chronic obstructive pulmonary disease with (acute) exacerbation Status: Acute Assessment and Plan: patient is being started on methylprednisone will continue DuoNeb (4) Type 2 diabetes mellitus with diabetic polyneuropathy, without long-term current use of insulin: Code(s): E11.42 - Type 2 diabetes mellitus with diabetic polyneuropathy Status: Acute Assessment and Plan: will continue home regimen and monitor with sliding scale (5) Lactic acid acidosis: Code(s): E87.2 - Acidosis Status: Acute Assessment and Plan: patient with significant elevated lactic acid most likely secondary to hypoxia, unlikely secondary to infection is patient white counts are normal, there is no fever and there is no significant source of infection, however patient is started on azithromycin and ceftriaxone, will continue to monitor Subjective Date/time seen: 06/27/21 13:53 ED-HPI Narrative: Patient is a 76-year-old male brought in by EMS in
--- NOTE | 2021-06-27 15:52 | PM.PNCARD ---
Progress Note: A&P Assessment and Plan (1) Acute exacerbation of chronic obstructive pulmonary disease: Code(s): J44.1 - Chronic obstructive pulmonary disease with (acute) exacerbation Status: Acute Assessment and Plan: His dyspnea is presumably caused by acute on chronic obstructive pulmonary disease. He is improving with current regimen. Will defer COPD treatment to hospitalist/pulmonology. Continue IV furosemide today. Transition to oral furosemide tomorrow. Will check a PA and lateral chest x-ray (2) Chronic respiratory failure with hypoxia: Code(s): J96.11 - Chronic respiratory failure with hypoxia Status: Acute (3) Aortic stenosis: Qualifiers: Cardiac valve disease etiology: nonrheumatic Qualified Code(s): I35.0 - Nonrheumatic aortic (valve) stenosis Code(s): I35.0 - Nonrheumatic aortic (valve) stenosis Status: Acute Assessment and Plan: No significant aortic stenosis is seen (4) Atherosclerotic heart disease of [place] coronary artery without angina pectoris: Qualifiers: [place] vs. transplanted heart: [place] heart Qualified Code(s): I25.10 - Atherosclerotic heart disease of [place] coronary artery without angina pectoris Code(s): I25.10 - Atherosclerotic heart disease of [place] coronary artery without angina pectoris Status: Acute Assessment and Plan: Continue his current home dose of aspirin, statin, lisinopril, metoprolol (5) Hypertension: Code(s): I10 - Essential (primary) hypertension Status: Acute Assessment and Plan: Continue home regimen Subjective Date/time seen: 06/27/21 15:52 Review of Systems Review of Systems: All systems reviewed & are unremarkable except as noted in HPI and below Constitutional: Constitutional: Denies fatigue, Denies headache(s) and Denies weakness Eyes: Eyes: Denies blurry vision ENT: Reports Normal hearing present, Denies headache(s) and Denies neck pain Cardiovascular: Cardiovascular: Denies chest pain and Reports dyspnea Respiratory: Respiratory: Reports dyspnea Gastrointestinal: Gastrointestinal: Denies abdominal pain Genitourinary: Genitourinary: Denies dysuria Musculoskeletal: Musculoskeletal: Denies neck pain Integumentary/Breasts: Skin/Breast: Denies dry skin Neurologic: Reports Normal hearing present, Denies headache(s) and Denies weakness Psychiatric: Psychiatric: Denies anxiety Endocrine: Endocrine: Denies fatigue Hematologic/Lymphatic: Hematologic/Lymphatic: Denies easy bleeding Allergic/Immunologic: Allergic/Immunologic: Denies GI upset with certain foods Exam Narrative: Patient is alert awake and oriented. Appears stated age Const: General: comfortable and no acute distress HENMT: General nose exam: Normal nares present Eyes: Sclera: sclerae normal Neck: Neck: supple and no JVD Chest: Other: Reproducible chest wall pain to palpation Resp: Auscultation: diminished lung sounds Cardio: Rate: regular rate Rhythm: regular rhythm GI: Auscultation: bowels sounds not normal Skin: General skin exam: normal color Neuro: Cranial nerves: Yes Normal hearing present Cognition (Neuro): normal cognition Speech: normal speech Extrem: General: normal to inspection and no edema Psych: Mental Status: mental status grossly normal Objective Data Vital Signs Vital Signs: Vital Signs - 24 hr 06/26/21 16:00 06/26/21 18:00 06/26/21 19:44 Temperature 37.3 C Pulse Rate 72 82 75 Respiratory Rate 30 H 22 H Blood Pressure 97/69 L Pulse Oximetry 98 99 06/26/21 20:00 06/26/21 22:00 06/26/21 23:46 Temperature 36.3 C L 36.3 C L Pulse Rate 82 82 71 Respiratory Rate 24 H 20 Blood Pressure 97/57 L 92/59 L Pulse Oximetry 96 97 06/26/21 23:51 06/27/21 00:00 06/27/21 02:00 Temperature Pulse Rate 88 73 68 Respiratory Rate 20 Blood Pressure Pulse Oximetry 99 06/27/21 02:26 06/27/21 04:00 1
[2021-06-27 17:16] LABS: Glucose Point of Care 111 mg/dl (65-105)
[2021-06-27 22:55] LABS: Glucose Point of Care 121 mg/dl (65-105)
[2021-06-28] VITALS (18 sets, daily range): BP systolic 87–98; BP diastolic 45–64; PULSE 56–89; RESP 14–24; TEMP 36.4–36.6; O2SAT 88–98
[2021-06-28] MEDS: methylPREDNISolone SOD SUCC 125 MG VIAL 60 MG IV PUSH ×3 (00:41→12:17)
[2021-06-28] MEDS: IPRATROPIUM BR 0.02% INH SOLN 0.5 MG/2.5 ML VIAL INHALATION ×3 (03:00→19:16)
[2021-06-28] MEDS: ALBUTEROL SULFATE NEB 2.5 MG/0.5 ML INH 5 MG INHALATION ×3 (03:00→19:17)
[2021-06-28 05:50] LABS: Basophils Percent Auto 0.1 % (0.2-1.2); Hematocrit 36.9 % (42.0-52.0); Hemoglobin 11.9 g/dL (14.0-18.0); Immature Granulocyte Absolute 0.07 K/mm3 (0.00-0.031); Immature Granulocyte Percent A 0.6 % (0-0.5); Lymphocytes Absolute Auto 0.84 K/mm3 (0.9-3.2); Lymphocytes Percent Auto 7.6 % (18.3-44.2); Mean Corpuscular HGB Conc 32.2 g/dl (32-36); Mean Corpuscular Hemoglobin 24.9 pg (26-34); Mean Corpuscular Volume 77.2 fl (80-100); Mean Platelet Volume 9.9 fl (7.4-10.4); Monocytes Absolute Auto 0.4 K/mm3 (0.1-0.6); Monocytes Percent Auto 3.2 % (2.6-8.5); Neutrophils Absolute Auto 9.7 K/mm3 (1.3-6.7); Neutrophils Percent Auto 88.5 % (45.5-73.1); Platelet Count Result 318 k/mm3 (150-375); Red Blood Count 4.78 M/mm3 (4.6-6.20); Red Cell Distribution Width 17.9 % (11.5-14.5)
[2021-06-28 06:04] LABS: Alanine Aminotransferase 30 U/L (4-50); Albumin Level 3.7 g/dL (3.5-5.1); Alkaline Phosphatase 80 U/L (38-126); Anion Gap 5 mmol/L (8-16); Aspartate Amino Transferase 69 U/L (17-59); Bilirubin,Total 0.4 mg/dL (0.2-1.3); Blood Urea Nitrogen 34 mg/dL (9-20); Calcium 8.8 mg/dL (8.4-10.2); Carbon Dioxide 23 mmol/L (22-30); Chloride 102 mmol/L (98-107); Estimated CRCL calculation 67 ml/min; Estimated Glomerular Filt Rate > 60; Glucose 143 mg/dL (65-110); Potassium 4.5 mmol/L (3.4-5.0); Sodium 130 mmol/L (137-145)
[2021-06-28] MEDS: hydrOXYzine HCL 10 MG TABLET PO ×3 (06:16→22:21)
[2021-06-28 08:04] LABS: Glucose Point of Care 144 mg/dl (65-105)
[2021-06-28] MEDS: ATORVASTATIN 40 MG TABLET 80 MG PO (08:56)
[2021-06-28] MEDS: TAMSULOSIN HCL 0.4 MG CAPSULE BY MOUTH (08:56)
[2021-06-28] MEDS: CHOLECALCIFEROL 1,000 UNITS TABLET 1000 UNITS PO (08:56)
[2021-06-28] MEDS: CITALOPRAM HYDROBROMIDE 20 MG TABLET PO (08:56)
[2021-06-28] MEDS: lisinopriL 5 MG TABLET PO (08:56)
[2021-06-28] MEDS: METOPROLOL TARTRATE 25 MG TABLET BY MOUTH (08:57)
[2021-06-28] MEDS: ENOXAPARIN 40 MG/0.4 ML SYRINGE SUB-Q ×2 (08:57→22:24)
[2021-06-28] MEDS: PRIMIDONE 50 MG TABLET PO ×2 (08:57→22:23)
[2021-06-28] MEDS: ASPIRIN 81 MG CHEWABLE TABLET PO (08:58)
--- NOTE | 2021-06-28 09:37 | PM.PNCARD ---
Progress Note: A&P Assessment and Plan (1) Acute exacerbation of chronic obstructive pulmonary disease: Code(s): J44.1 - Chronic obstructive pulmonary disease with (acute) exacerbation Status: Acute Assessment and Plan: His dyspnea is presumably caused by acute on chronic obstructive pulmonary disease. He is improving with current regimen. Will defer COPD treatment to hospitalist/pulmonology. Furosemide 20 mg p.o. daily to start today (2) Chronic respiratory failure with hypoxia: Code(s): J96.11 - Chronic respiratory failure with hypoxia Status: Acute (3) Aortic stenosis: Qualifiers: Cardiac valve disease etiology: nonrheumatic Qualified Code(s): I35.0 - Nonrheumatic aortic (valve) stenosis Code(s): I35.0 - Nonrheumatic aortic (valve) stenosis Status: Acute Assessment and Plan: No significant aortic stenosis is seen (4) Atherosclerotic heart disease of [place] coronary artery without angina pectoris: Qualifiers: [place] vs. transplanted heart: [place] heart Qualified Code(s): I25.10 - Atherosclerotic heart disease of [place] coronary artery without angina pectoris Code(s): I25.10 - Atherosclerotic heart disease of [place] coronary artery without angina pectoris Status: Acute Assessment and Plan: Continue his current home dose of aspirin, statin, lisinopril, metoprolol (5) Hypertension: Code(s): I10 - Essential (primary) hypertension Status: Acute Assessment and Plan: Continue home regimen Subjective Date/time seen: 06/28/21 09:37 Interval history: 76-year-old admitted with shortness of breath Date of service 06/28/2021: He overall is feeling okay. Still short of breath with any activity but comfortable at rest. No chest pain Review of Systems Review of Systems: All systems reviewed & are unremarkable except as noted in HPI and below Constitutional: Constitutional: Denies fatigue, Denies headache(s) and Denies weakness Eyes: Eyes: Denies blurry vision ENT: Reports Normal hearing present, Denies headache(s) and Denies neck pain Cardiovascular: Cardiovascular: Denies chest pain and Reports dyspnea Respiratory: Respiratory: Reports dyspnea Gastrointestinal: Gastrointestinal: Denies abdominal pain Genitourinary: Genitourinary: Denies dysuria Musculoskeletal: Musculoskeletal: Denies neck pain Integumentary/Breasts: Skin/Breast: Denies dry skin Neurologic: Reports Normal hearing present, Denies headache(s) and Denies weakness Psychiatric: Psychiatric: Denies anxiety Endocrine: Endocrine: Denies fatigue Hematologic/Lymphatic: Hematologic/Lymphatic: Denies easy bleeding Allergic/Immunologic: Allergic/Immunologic: Denies GI upset with certain foods Exam Narrative: Patient is alert awake and oriented. Appears stated age Const: General: comfortable and no acute distress HENMT: General nose exam: Normal nares present Eyes: Sclera: sclerae normal Neck: Neck: supple and no JVD Chest: Other: Reproducible chest wall pain to palpation Resp: Auscultation: diminished lung sounds Cardio: Rate: regular rate Rhythm: regular rhythm GI: Auscultation: bowels sounds not normal Skin: General skin exam: normal color Neuro: Cranial nerves: Yes Normal hearing present Cognition (Neuro): normal cognition Speech: normal speech Extrem: General: normal to inspection and no edema Psych: Mental Status: mental status grossly normal Objective Data Vital Signs Vital Signs: Vital Signs - 24 hr 06/27/21 10:00 06/27/21 10:31 06/27/21 10:44 Temperature Pulse Rate 71 77 76 Respiratory Rate 24 H 22 H Blood Pressure Pulse Oximetry 06/27/21 10:45 06/27/21 12:00 06/27/21 15:00 Temperature 36.6 C Pulse Rate 61 72 Respiratory Rate 22 H Blood Pressure 100/60 Pulse Oximetry 92 91 06/27/21 16:00 06/27/21 20:00 06/27/21 22:00 Temperature 36.2 C L Pulse Rate 62 62
[2021-06-28] MEDS: FUROSEMIDE 20 MG TABLET PO (10:23)
[2021-06-28 11:36] LABS: Glucose Point of Care 114 mg/dl (65-105)
--- NOTE | 2021-06-28 14:57 | P.PNIM_ITS ---
Progress Note: A&P Assessment and Plan (1) Acute hypoxemic respiratory failure: Code(s): J96.01 - Acute respiratory failure with hypoxia Status: Acute Assessment and Plan: 06/26/21 14:03 ED-HPI Narrative: Patient is a 76-year-old male brought in by EMS in respiratory distress. Per EMS his oxygen saturation was 88% on 4 L when they arrived, he was tachypneic and in severe distress so he was placed on a CPAP given albuterol neb and decadron . Patient has a history of COPD and on 4 L continuously at home. Patient states that he is usually short of breath, that is nothing new bu t tonight his inhalers did not work, he became more short of breath, and that is why called EMS. Patient denies any chest pain, abdominal pain, nausea, vomiting, diaphoresis, fever or chills. 06/26/2021 Interval history: Patient with chronic respiratory failure on home oxygen 4 L was found to be hypoxic and saturating 88% on 4 L patient was placed on CPAP and was given steroid, most likely patient symptoms are stemming exacerbation of COPD patient is started on methylprednisone 60 mg every 6 hours will continue DuoNeb, will also start the patient Lasix 40 mg IV to help diurese the patient this may help is oxygen, chest x-ray showed pulmonary edema Vs Pneumonia started patient on zithromax and ceftriaxone, will gently diurese the patient, patient is being tested for COVID-19 A currently isolated, is feeling much better compared to when he arrived, denies any fever or chills, will continue to monitor the patient as symptoms improved will taper the methylpre dnisone. 06/27/2021 Interval history: patient COVID test is negative and off isolation Patient with chronic respiratory failure on home oxygen 4 L was found to be hypoxic and saturating 88% on 4 L patient was placed on CPAP and was given steroid, most likely patient symptoms are stemming exacerbation of COPD patient is started on methylprednisone 60 mg every 6 hours will continue DuoNeb, will also start the patient Lasix 20 mg IV to help diurese the patient this may help is oxygen, chest x-ray showed pulmonary edema Vs Pneumonia started patient on zithromax and ceftriaxone, will gently diurese the patient, patient is being tested for COVID-19 A currently isolated, is feeling much better compared to when he arrived, denies any fever or chills, will continue to monitor the patient as symptoms improved will taper the methylprednisone. 06/28/2021 Interval history: patient COVID test is negative and off isolation Patient with chronic respiratory failure on home oxygen 4 L was found to be hypoxic and was saturating 88% on 4 L patient was placed on CPAP and was given steroid, most likely patient symptoms are stemming exacerbation of COPD patient was started on methylprednisone 60 mg every 6 hours, patient symptoms have improved, will taper methylprednisone to prednisone 60mg qd, and edwin Ramirez, started the patient Lasix 20 mg IV to help diurese the patient this may help is oxygen, however his soidum is trending down, will stop lasix, chest x- ray showed pulmonary edema Vs Pneumonia started patient on zithromax and ce ftriaxone, Patient is feeling much better compared to when he arrived, denies any fever or chills, will continue to monitor the patient as symptoms improved will discharge patient tomorrow. (2) Pneumonia: Qualifiers: Laterality: bilateral Lung location: unspecified part of lung Pneumonia type: due to unspecified organism Qualified Code(s): J18.9 - Pneumonia, unspecified organism Code(s): J18.9 - Pneumonia, unspecified organism Status: Acute Assessment and Plan: patient being treated with Rocephin and azithromycin will continue to monitor chucho
[2021-06-28 16:44] LABS: Glucose Point of Care 119 mg/dl (65-105)
[2021-06-29] VITALS (8 sets, daily range): BP systolic 103; BP diastolic 64; PULSE 50–67; RESP 18–22; TEMP 36.3; O2SAT 92–97
[2021-06-29] MEDS: ALBUTEROL SULFATE NEB 2.5 MG/0.5 ML INH 5 MG INHALATION ×2 (02:54→08:13)
[2021-06-29] MEDS: IPRATROPIUM BR 0.02% INH SOLN 0.5 MG/2.5 ML VIAL INHALATION ×2 (02:54→08:13)
[2021-06-29 04:41] LABS: Glucose Point of Care 92 mg/dl (65-105)
[2021-06-29] MEDS: hydrOXYzine HCL 10 MG TABLET PO (06:03)
[2021-06-29 06:21] LABS: Basophils Percent Auto 0.1 % (0.2-1.2); Eosinophils Percent Auto 0.1 % (0-4.4); Hematocrit 36.9 % (42.0-52.0); Hemoglobin 11.8 g/dL (14.0-18.0); Immature Granulocyte Absolute 0.05 K/mm3 (0.00-0.031); Immature Granulocyte Percent A 0.6 % (0-0.5); Lymphocytes Absolute Auto 1.81 K/mm3 (0.9-3.2); Lymphocytes Percent Auto 22.1 % (18.3-44.2); Mean Corpuscular Hemoglobin 25.1 pg (26-34); Mean Corpuscular Volume 78.3 fl (80-100); Mean Platelet Volume 9.6 fl (7.4-10.4); Monocytes Absolute Auto 0.9 K/mm3 (0.1-0.6); Monocytes Percent Auto 11.1 % (2.6-8.5); Neutrophils Absolute Auto 5.4 K/mm3 (1.3-6.7); Platelet Count Result 243 k/mm3 (150-375); Red Blood Count 4.71 M/mm3 (4.6-6.20); Red Cell Distribution Width 17.8 % (11.5-14.5); White Blood Count 8.2 K/mm3 (4.5-10.0)
[2021-06-29 06:36] LABS: Alanine Aminotransferase 34 U/L (4-50); Albumin Level 3.5 g/dL (3.5-5.1); Alkaline Phosphatase 68 U/L (38-126); Anion Gap 3 mmol/L (8-16); Aspartate Amino Transferase 57 U/L (17-59); Bilirubin,Total 0.4 mg/dL (0.2-1.3); Blood Urea Nitrogen 33 mg/dL (9-20); Calcium 8.3 mg/dL (8.4-10.2); Carbon Dioxide 24 mmol/L (22-30); Chloride 103 mmol/L (98-107); Estimated CRCL calculation 69 ml/min; Estimated Glomerular Filt Rate > 60; Glucose 94 mg/dL (65-110); Potassium 4.5 mmol/L (3.4-5.0); Sodium 130 mmol/L (137-145)
[2021-06-29 07:50] LABS: Glucose Point of Care 87 mg/dl (65-105)
--- NOTE | 2021-06-29 08:14 | PM.DS ---
DS: Admitting Diagnosis Discharge Date 06/29/2021 Admitting Diagnosis shortness of breath DS: Discharge Diagnosis Discharge Diagnosis (1) Acute hypoxemic respiratory failure: Code(s): J96.01 - Acute respiratory failure with hypoxia Status: Acute Assessment and Plan: 06/26/21 14:03 ED-HPI Narrative: Patient is a 76-year-old male brought in by EMS in respiratory distress. Per EMS his oxygen saturation was 88% on 4 L when they arrived, he was tachypneic and in severe distress so he was placed on a CPAP given albuterol neb and decadron . Patient has a history of COPD and on 4 L continuously at home. Patient states that he is usually short of breath, that is nothing new but tonight his inhalers did not work, he became more short of breath, and that is why called EMS. Patient denies any chest pain, abdominal pain, nausea, vomiting, diaphoresis, fever or chills. 06/26/2021 Interval history: Patient with chronic respiratory failure on home oxygen 4 L was found to be hypoxic and saturating 88% on 4 L patient was placed on CPAP and was given steroid, most likely patient symptoms are stemming exacerbation of COPD patient is started on methylprednisone 60 mg every 6 hours will continue DuoNeb, will also start the patient Lasix 40 mg IV to help diurese the patient this may help is oxygen, chest x-ray showed pulmonary edema Vs Pneumonia started patient on zithromax and ceftriaxone, will gently diurese the patient, patient is being tested for COVID-19 A currently isolated, is feeling much better compared to when he arrived, denies any fever or chills, will continue to monitor the patient as symptoms improved will taper the methylprednisone. 06/27/2021 Interval history: patient COVID test is negative and off isolation Patient with chronic respiratory failure on home oxygen 4 L was found to be hypoxic and saturating 88% on 4 L patient was placed on CPAP and was given steroid, most likely patient symptoms are stemming exacerbation of COPD patient is started on methylprednisone 60 mg every 6 hours will continue DuoNeb, will also start the patient Lasix 20 mg IV to help diurese the patient this may help is oxygen, chest x-ray showed pulmonary edema Vs Pneumonia started patient on zithromax and ceftriaxone, will gently diurese the patient, patient is being tested for COVID-19 A currently isolated, is feeling much better compared to when he arrived, denies any fever or chills, will continue to monitor the patient as symptoms improved will taper the methylprednisone. 06/28/2021 Interval history: patient COVID test is negative and off isolation Patient with chronic respiratory failure on home oxygen 4 L was found to be hypoxic and was saturating 88% on 4 L patient was placed on CPAP and was given steroid, most likely patient symptoms are stemming exacerbation of COPD patient was started on methylprednisone 60 mg every 6 hours, patient symptoms have improved, will taper methylprednisone to prednisone 60mg qd, and edwin Ramirez, started the patient Lasix 20 mg IV to help diurese the patient this may help is oxygen, however his soidum is trending down, will stop lasix, chest x-ray showed pulmonary edema Vs Pneumonia started patient on zithromax and ceftriaxone, Patient is feeling much better compared to when he arrived, denies any fever or chills, will continue to monitor the patient as symptoms improved will discharge patient tomorrow. (2) Pneumonia: Qualifiers: Laterality: bilateral Lung location: unspecified part of lung Pneumonia type: due to unspecified organism Qualified Code(s): J18.9 - Pneumonia, unspecified organism Code(s): J18.9 - Pneumonia, unspecified organism Status: Acute Assessment and Plan: patient being treated with Rocephin and azithromycin will continue to monitor repeat chest x-ray in 2days today (3) Acute exacerbation of chronic obstructive pulmonary disease: Code(s): J44.1 - Chronic
[2021-06-29] MEDS: METOPROLOL TARTRATE 25 MG TABLET BY MOUTH (09:51)
[2021-06-29] MEDS: CHOLECALCIFEROL 1,000 UNITS TABLET 1000 UNITS PO (09:51)
[2021-06-29] MEDS: lisinopriL 5 MG TABLET PO (09:51)
[2021-06-29] MEDS: predniSONE 20 MG TABLET 60 MG PO (09:51)
[2021-06-29] MEDS: ATORVASTATIN 40 MG TABLET 80 MG PO (09:51)
[2021-06-29] MEDS: ASPIRIN 81 MG CHEWABLE TABLET PO (09:52)
[2021-06-29] MEDS: ENOXAPARIN 40 MG/0.4 ML SYRINGE SUB-Q (09:52)
[2021-06-29] MEDS: CITALOPRAM HYDROBROMIDE 20 MG TABLET PO (09:52)
[2021-06-29] MEDS: PRIMIDONE 50 MG TABLET PO (09:52)
[2021-06-29] MEDS: TAMSULOSIN HCL 0.4 MG CAPSULE BY MOUTH (09:52)
[2021-06-29] MEDS: FUROSEMIDE 20 MG TABLET PO (09:53)
--- NOTE | 2021-06-29 11:20 | PM.PNCARD ---
Progress Note: A&P Assessment and Plan (1) Acute exacerbation of chronic obstructive pulmonary disease: Code(s): J44.1 - Chronic obstructive pulmonary disease with (acute) exacerbation Status: Acute Assessment and Plan: His dyspnea is presumably caused by acute on chronic obstructive pulmonary disease. He is improving with current regimen. Will defer COPD treatment to hospitalist/pulmonology. Continue p.o. furosemide. Okay for discharge from cardiac perspective (2) Chronic respiratory failure with hypoxia: Code(s): J96.11 - Chronic respiratory failure with hypoxia Status: Acute (3) Aortic stenosis: Qualifiers: Cardiac valve disease etiology: nonrheumatic Qualified Code(s): I35.0 - Nonrheumatic aortic (valve) stenosis Code(s): I35.0 - Nonrheumatic aortic (valve) stenosis Status: Acute Assessment and Plan: No significant aortic stenosis is seen (4) Atherosclerotic heart disease of [place] coronary artery without angina pectoris: Qualifiers: [place] vs. transplanted heart: [place] heart Qualified Code(s): I25.10 - Atherosclerotic heart disease of [place] coronary artery without angina pectoris Code(s): I25.10 - Atherosclerotic heart disease of [place] coronary artery without angina pectoris Status: Acute Assessment and Plan: Continue his current home dose of aspirin, statin, lisinopril, metoprolol (5) Hypertension: Code(s): I10 - Essential (primary) hypertension Status: Acute Assessment and Plan: Continue home regimen Subjective Date/time seen: 06/29/21 11:20 Interval history: 76-year-old admitted with shortness of breath Date of service 06/28/2021: He overall is feeling okay. Still short of breath with any activity but comfortable at rest. No chest pain Date of service 06/29/2021: Anxious for discharge. Feels about the same. Shortness breath is at baseline. No chest pain Review of Systems Review of Systems: All systems reviewed & are unremarkable except as noted in HPI and below Constitutional: Constitutional: Denies fatigue, Denies headache(s) and Denies weakness Eyes: Eyes: Denies blurry vision ENT: Reports Normal hearing present, Denies headache(s) and Denies neck pain Cardiovascular: Cardiovascular: Denies chest pain and Reports dyspnea Respiratory: Respiratory: Reports dyspnea Gastrointestinal: Gastrointestinal: Denies abdominal pain Genitourinary: Genitourinary: Denies dysuria Musculoskeletal: Musculoskeletal: Denies neck pain Integumentary/Breasts: Skin/Breast: Denies dry skin Neurologic: Reports Normal hearing present, Denies headache(s) and Denies weakness Psychiatric: Psychiatric: Denies anxiety Endocrine: Endocrine: Denies fatigue Hematologic/Lymphatic: Hematologic/Lymphatic: Denies easy bleeding Allergic/Immunologic: Allergic/Immunologic: Denies GI upset with certain foods Exam Narrative: Patient is alert awake and oriented. Appears stated age Const: General: comfortable and no acute distress HENMT: General nose exam: Normal nares present Eyes: Sclera: sclerae normal Neck: Neck: supple and no JVD Chest: Other: Reproducible chest wall pain to palpation Resp: Auscultation: diminished lung sounds Cardio: Rate: regular rate Rhythm: regular rhythm GI: Auscultation: bowels sounds not normal Skin: General skin exam: normal color Neuro: Cranial nerves: Yes Normal hearing present Cognition (Neuro): normal cognition Speech: normal speech Extrem: General: normal to inspection and no edema Psych: Mental Status: mental status grossly normal Objective Data Vital Signs Vital Signs: Vital Signs - 24 hr 06/28/21 12:00 06/28/21 13:33 06/28/21 13:43 Temperature Pulse Rate 65 87 86 Respiratory Rate 18 18 Blood Pressure Pulse Oximetry 90 06/28/21 15:05 06/28/21 16:00 06/28/21 17:58 Temperature 36.6 C Pulse Rate 63 56 L Respiratory
[2021-06-29 11:37] LABS: Glucose Point of Care 87 mg/dl (65-105)
== END 2021-06-29 12:18 | disposition home or self-care (01) | DRG 190 ==
LOC: ANHED 05:08 → ANH3MED 06-29 08:13 → ANHIMU 07-01 14:01
PROVIDERS: Admitting Provider Internal Medicine; Emergency Provider Emergency Medicine; PCP Internal Medicine; Visit Provider Family Medicine
DX: J44.0 Chronic obstructive pulmonary disease with (acute) lower respiratory infection (principal); J18.9 Pneumonia, unspecified organism; J96.21 Acute and chronic respiratory failure with hypoxia; E87.2 Acidosis; J44.1 Chronic obstructive pulmonary disease with (acute) exacerbation; Z20.822 Contact with and (suspected) exposure to COVID-19; E11.42 Type 2 diabetes mellitus with diabetic polyneuropathy; I25.10 Atherosclerotic heart disease of native coronary artery without angina pectoris; I10 Essential (primary) hypertension; I35.0 Nonrheumatic aortic (valve) stenosis; I71.4 Abdominal aortic aneurysm, without rupture; M21.372 Foot drop, left foot; M21.371 Foot drop, right foot; Z99.81 Dependence on supplemental oxygen; I25.2 Old myocardial infarction; Z95.5 Presence of coronary angioplasty implant and graft; Z87.891 Personal history of nicotine dependence
CPT/HCPCS: 36415; 71045; 71046; 80053; 82948; 83036; 83605; 83735; 83880; 84484; 85025; 87040; 87426; 93005; 93306; 94002; 94003; 94640; 96365; 97161; 97166; 99285; A9270; C9803; J0456; J0696; J1650; J1940; J2930; J7120; J7512; U0003; U0005

== ENCOUNTER 2021-07-29 10:14 | Inpatient (IN) | payer OTHER, SELFPAY ==
[2021-07-29] VITALS (14 sets, daily range): BP systolic 93–148; BP diastolic 66–88; PULSE 61–155; RESP 20–50; TEMP 35.9–37.7; O2SAT 94–100; BMI 24.4
--- NOTE | ~2021-07-29 | US_ITS ---
EXAMINATION: US renal BI DATE: 08/04/2021 16:39 INDICATION: Acute renal insufficiency TECHNIQUE: Multiple ultrasound grayscale images of the kidneys were obtained. COMPARISON: None. FINDINGS: The right kidney measures 11.6 x 5.7 x 4.7 cm. The left kidney measures 12.4 x 4.8 x 5.2 cm. The kidn eys demonstrate normal echogenicity. 4.7 cm anechoic cyst at the upper pole of the left kidney. There is no hydronephrosis in either kidney. No stones identified. The bladder is decompressed around a F oley catheter which limits evaluation. There is an indeterminate large hypoechoic mass measuring up t o 2.9 cm in maximal diameter situated between the right kidney in the right hepatic lobe. No evident correlate in this region on the prior chest CT although this may lie caudal to the region of CT imagi ng. IMPRESSION: 1. 4.7 cm left renal cyst. Otherwise normal kidneys with no hydronephrosis. 2. Indeterminate 10.9 cm hypoechoic mass in the right abdomen between the right kidney and liver. Rec ommend further evaluation with CT of the abdomen and pelvis. Reviewed, dictated and finalized at location A. OMER COUNTER REPRESENTATIVE IMPRESSION: 1. 4.7 cm left renal cyst. Otherwise normal kidneys with no hydronephrosis. 2. Indeterminate 10.9 cm hypoechoic mass in the right abdomen between the right kidney and liver. Recommend further evaluation with CT of the abdomen and pelv is.
--- NOTE | ~2021-07-29 | XR_ITS ---
XR chest ET placement DATE: 08/04/2021 10:00 INDICATION: ET tube placement TECHNIQUE: Portable AP chest on 08/04/2021 at 0950 hours COMPARISON: 08/04/2021 portable AP chest at 0819 hours FINDINGS: ET tube has been placed, distal tip 1.4 cm above malissa; ideal range is 2-5 cm. Patchy bilateral pulmonary infiltrates, right greater than left, stable since earlier today. Heart size appears within normal range. There is aortic calcification and unfolding. No pleural effusion. No pneumothorax is evident. Diffuse osteopenia. Osteoarthritic change of the glenohumeral joints. Left rotator cuff atrophy. Dege nerative spurring of the thoracic spine. IMPRESSION: ET tube tip 1.4 cm above malissa; ideal range is 2-5 cm Reviewed, dictated and finalized at Location A. Reviewed, dictated and finalized at location B. CIATE TEAM PHYSICIAN
--- NOTE | ~2021-07-29 | XR_ITS ---
EXAMINATION: XR abdomen NG/feed tube insert DATE: 08/04/2021 10:54 INDICATION: Orogastric tube placement. TECHNIQUE: A supine view of the abdomen and lower chest was obtained for evaluation of feeding tube placement. COMPARISON: Chest CT dated 08/02/2021 FINDINGS: Endotracheal tube tip 1.5 cm above level of the malissa. Nasogastric tube extends along the course of the esophagus with distal tip crossing the midline projecting over the right cardiophrenic angle. Bas ed upon CT images demonstrating a large hiatal hernia the distal tip is likely just beyond the gastro esophageal junction and within the intrathoracic portion of the stomach. The proximal side-port remai ns within the distal esophagus. There is some gaseous distention of the residual intra-abdominal portion of the stomach. Additional s mall amount of gas at the hepatic flexure of the colon. No dilated loops of gas-filled bowel in the v isualized abdomen. Reticular pattern and some airspace opacities in the right hemithorax correspondin g to severe emphysema with superimposed pulmonary edema, atelectasis or pneumonia. Additional mild st reaky left basilar atelectasis. Heart size is normal. Atherosclerotic and tortuous thoracic aorta. Se keysha thoracolumbar spondylosis. IMPRESSION: 1. Nasogastric tube tip likely within the intrathoracic portion of the stomach with large hiatal lester ia evident on prior CT. Reviewed, dictated and finalized at location A. TH AND WELLNESS INSTRUCTOR IMPRESSION: 1. Nasogastric tube tip likely within the intrathoracic portion of the stomach with large hiatal hernia evident on prior CT.
--- NOTE | ~2021-07-29 | XR_ITS ---
XR chest 1V portable 07/29/2021 10:33 Indication: Sudden onset of shortness of breath Procedure: AP portable chest Comparison: Comparison to multiple prior studies sequentially, with oldest reviewed study dated 04/03. Findings: There are extensive extensive patchy bilateral airspace disease, compatible with pneumonia. Small right pleural effusion. There is atherosclerosis and ectasia of the aorta. No pneumothorax. Impression: 1: Extensive bilateral airspace disease, compatible with pneumonia. Reviewed, dictated and finalized at location B. E SUPERVISOR Impression: 1: Extensive bilateral airspace disease, compatible with pneumonia.
--- NOTE | ~2021-07-29 | CT_ITS ---
EXAMINATION: CTA chest PE protocol DATE: 08/02/2021 10:06 INDICATION: Hypoxia. TECHNIQUE: Computed tomography angiography (CTA) of the chest was performed with 100 mL Omnipaque-350 intravenous contrast timed to evaluate the pulmonary arteries. Coronal maximum intensity projection 3D-reconstructions were created by the technologist. Automated exposure control and iterative reconst ruction technique were employed. The dose-length product was 355.56 mGy-cm. COMPARISON: Chest CT 09/06/2019 FINDINGS: There is severe emphysema. There are groundglass opacities and septal thickening in right u pper lobe, right lower lobe, right middle lobe, and basilar left lower lobe. There are trace pleural effusions. The heart size is normal. There are coronary artery calcifications. No pericardial effusio n. There is a large sliding hiatal hernia. There is no pulmonary embolus. Partially visualized is a 3 .6 cm cyst in left kidney. There is severe thoracic spondylosis. There is an old healed fracture of t he sternum. IMPRESSION: 1. No pulmonary embolus. 2. Severe emphysema. 3. Groundglass opacities and septal thickening involving right lung and basilar left lower lobe, cons istent with mild pulmonary edema versus pneumonia. Reviewed, dictated and finalized at location A. LCHAIR RENTAL CLERK IMPRESSION: 1. No pulmonary embolus. 2. Severe emphysema. 3. Groundglass opacities and septal thickening involving right lung and basilar left lower lobe, consistent with mild pulmonary edema versus pneumonia.
--- NOTE | ~2021-07-29 | US_ITS ---
EXAMINATION:US venous doppler LE BI INDICATION:DVT. TECHNIQUE: Multiple grayscale, color flow and Doppler images of the right and left lower extremity de ep venous systems were obtained and reviewed. COMPARISON:No prior studies for comparison. FINDINGS: The common femoral, superficial femoral and popliteal veins demonstrate normal respiratory variation, augmentation and compressibility. Color flow is also seen within the posterior tibial, pe roneal, greater saphenous and profunda veins. IMPRESSION: 1: No lower extremity deep venous thrombosis. Reviewed, dictated and finalized at location B. BOSS
--- NOTE | ~2021-07-29 | XR_ITS ---
EXAMINATION: XR chest 1V portable DATE: 08/04/2021 08:25 INDICATION: Shortness of breath. Pneumonia. TECHNIQUE: A single frontal view of the chest was obtained. COMPARISON: Chest single view 07/31/2021, chest CT 08/02/2021 FINDINGS: There are lucencies and reticular opacities in the lungs, consistent with emphysema. There are airspace opacities in the mid and lower lung zones, right worse than left. No pleural effusion or pneumothorax. The heart size is normal. IMPRESSION: 1. Airspace opacities in the mid and lower lung zones, right worse than left with improvement on the right, consistent with pneumonia. 2. Emphysema. Reviewed, dictated and finalized at location A. MOTIVE SALES ASSOCIATE IMPRESSION: 1. Airspace opacities in the mid and lower lung zones, right worse than left wi th improvement on the right, consistent with pneumonia. 2. Emphysema.
--- NOTE | ~2021-07-29 | XR_ITS ---
EXAMINATION: XR chest 1V portable EXAM DATE: 07/31/2021 08:44 INDICATION: Acute respiratory failure, pneumonia . TECHNIQUE: Portable AP frontal chest x-ray was obtained. Comparison is made to prior examination from 07/29/2021. FINDINGS: Moderate amount of right-sided, small amount of left basilar airspace disease consistent wi th pneumonia. No pneumothorax or sizable pleural effusion. Probable moderate-sized gastroesophageal h iatal hernia. There are bony degenerative changes. IMPRESSION: 1. Moderate right, small left pneumonia unchanged. Reviewed, dictated and finalized at location A. ING IN MACHINE TENDER
--- NOTE | 2021-07-29 10:20 | PC.NURSE ---
PT IN V-TACH. SHOCKED BY DR CUEVAS. RATE IN 130'S NOW.
--- NOTE | 2021-07-29 10:26 | ECG_ITS ---
Measurements Intervals [place] Rate: 139 P: 5 UT: 114 QRS: 255 QRSD: 149 T: 70 QT: 316 QTc: 481 Interpretive Statements SINUS TACHYCARDIA RIGHT AXIS DEVIATION RIGHT BUNDLE BRANCH BLOCK BASELINE ARTIFACT- I, II, V5 ABNORMAL ECG Electronically Signed On 07-29-2021 11:59:43 PROGRAM OFFICER by El Sauer D.O.
[2021-07-29 10:39] LABS: Alveolar/Arterial O2 Gradient 638.8 mmHg; Fractional Inspired Oxygen 100 %; HCO3 ABG 12.2 mEq/l (22.0-26.0); Oxygen Content ABG 16.5 %vol (16.0-22.0); PO2 ABG 52.3 mmHg (80.0-100.0); PO2 FiO2 Ratio Arterial Blood 0.52 %; Total Hemoglobin 14.1 g/dL (12.0-18.0); pH ABG 7.362 (7.350-7.450)
[2021-07-29] MEDS: METOPROLOL TARTRATE INJ 5 MG/5 ML VIAL IV PUSH (10:39)
[2021-07-29] MEDS: ASPIRIN 81 MG CHEWABLE TABLET 324 MG PO (10:40)
[2021-07-29 10:41] LABS: Oxygen Saturation ABG 86.7 % (95.0-100.0); Oxyhemoglobin 83.5 % THb (90.0-100.0); PCO2 ABG 21.9 mmHg (35.0-45.0)
[2021-07-29 10:42] LABS: Device BIPAP; Expiratory Pressure 6 cmH2O; Inspiratory Pressure 12 cmH2O; Modified Allen's Test Pass; Site Drawn RIGHT RADIAL
[2021-07-29 10:50] LABS: Basophils Absolute Auto 0.1 K/mm3 (0.0-0.1); Basophils Percent Auto 0.4 % (0.2-1.2); Eosinophils Absolute Auto 0.1 K/mm3 (0-0.3); Eosinophils Percent Auto 0.4 % (0-4.4); Hematocrit 46.1 % (42.0-52.0); Hemoglobin 14.1 g/dL (14.0-18.0); Immature Granulocyte Absolute 0.15 K/mm3 (0.00-0.031); Immature Granulocyte Percent A 0.7 % (0-0.5); Lymphocytes Absolute Auto 1.67 K/mm3 (0.9-3.2); Lymphocytes Percent Auto 7.9 % (18.3-44.2); Mean Corpuscular HGB Conc 30.6 g/dl (32-36); Mean Corpuscular Hemoglobin 25.2 pg (26-34); Mean Corpuscular Volume 82.5 fl (80-100); Mean Platelet Volume 10.2 fl (7.4-10.4); Monocytes Absolute Auto 0.7 K/mm3 (0.1-0.6); Monocytes Percent Auto 3.5 % (2.6-8.5); Neutrophils Absolute Auto 18.4 K/mm3 (1.3-6.7); Neutrophils Percent Auto 87.1 % (45.5-73.1); Platelet Count Result 379 k/mm3 (150-375); Red Blood Count 5.59 M/mm3 (4.6-6.20); Red Cell Distribution Width 18.9 % (11.5-14.5); White Blood Count 21.1 K/mm3 (4.5-10.0)
[2021-07-29] MEDS: IPRATROPIUM BR 0.02% INH SOLN 0.5 MG/2.5 ML VIAL INHALATION ×3 (10:50→20:19)
[2021-07-29] MEDS: ALBUTEROL SULFATE NEB 2.5 MG/0.5 ML INH 5 MG INHALATION ×3 (10:50→20:18)
[2021-07-29 10:56] LABS: D Dimer 2.08 ug/mL (<0.48)
[2021-07-29 10:57] LABS: Alanine Aminotransferase 35 U/L (4-50); Albumin Level 4.8 g/dL (3.5-5.1); Alkaline Phosphatase 110 U/L (38-126); Anion Gap 21 mmol/L (8-16); Aspartate Amino Transferase 33 U/L (17-59); Bilirubin,Total 0.6 mg/dL (0.2-1.3); Blood Urea Nitrogen 17 mg/dL (9-20); Carbon Dioxide 12 mmol/L (22-30); Chloride 108 mmol/L (98-107); Estimated CRCL calculation 47 ml/min; Estimated Glomerular Filt Rate > 60; Glucose 306 mg/dL (65-110); Potassium 5.2 mmol/L (3.4-5.0); Sodium 141 mmol/L (137-145)
[2021-07-29 11:09] LABS: NT Pro B Type Natriuretic Pept 300 pg/mL (5-100); Troponin I 0.043 ng/mL (0.000-0.034)
--- NOTE | 2021-07-29 11:38 | ECG_ITS ---
Measurements Intervals [place] Rate: 79 P: 40 AL: 133 QRS: 252 QRSD: 145 T: 5 QT: 408 QTc: 468 Interpretive Statements SINUS RHYTHM RIGHT AXIS DEVIATION RIGHT BUNDLE BRANCH BLOCK BASELINE ARTIFACT- I, II, III, AVR, AVL, AVF, V1-V6 ABNORMAL ECG Electronically Signed On 07-29-2021 12:01:56 MOLECULAR BIOLOGIST by El Sauer D.O.
--- NOTE | 2021-07-29 12:14 | ED.SOB ---
HPI - SOB/Dyspnea General Chief Complaint: Chest Pain Stated Complaint: STEMI Time Seen by Provider: 07/29/21 10:29 Source: EMS Mode of arrival: EMS Limitations: clinical condition History of Present Illness HPI Narrative: 76-year-old male Brought from home by EMS with a STEMI activation Patient was said to have become very abruptly extremely dyspneic at home just before EMS was called It is unclear whether he was having much in the way of actual chest pain may be some chest tightness His prehospital EKG is abnormal with tachycardia and a wide-complex He arrives on CPAP, very restless and distressed and unable to give much additional history He is said to have a history of COPD and uses oxygen at home, and a history of an MT Related Data Home Medications Medication Instructions Recorded Confirmed aspirin 81 mg chewable tablet 81 mg PO DAILY 08/21/19 06/26/21 blood sugar diagnostic #10 each 08/21/19 06/26/21 blood-glucose meter #1 each 08/21/19 06/26/21 cholecalciferol (vitamin D3) 25 25 mcg PO DAILY 12/12/20 06/26/21 mcg (1,000 unit) capsule glucosamine HCl 1,500 mg PO DAILY 06/26/21 06/26/21 hydroxyzine HCl 10 mg PO TID 06/26/21 06/26/21 lisinopril 5 mg PO DAILY 06/26/21 06/26/21 metoprolol tartrate 25 mg DAILY 06/26/21 06/26/21 omeprazole 20 mg TID 06/26/21 06/26/21 primidone 50 mg PO BID 06/26/21 06/26/21 sitagliptin [Januvia] mg 07/29/21 Allergies Allergy/AdvReac Type Severity Reaction Status Date / Time No Known Allergies Allergy Verified 07/29/21 10:25 Review of Systems Review of Systems: ROS unobtainable: Yes unobtainable due to medical condition PMFSH Past Medical History Medical History Abdominal aortic aneurysm (AAA) 3.0 cm to 5.5 cm in diameter in male Adenomatous colon polyp Atherosclerotic heart disease of [place] coronary artery without angina pectoris Bilateral arm fractures Contusion of toe with damage to nail Essential hypertension Foot drop, bilateral History of [place] (myocardial infarction) Major 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 Neuropathy Peripheral neuropathy Type 2 diabetes mellitus with diabetic polyneuropathy, without long-term current use of insulin Surgical History Surgical History History of heart artery stent Family History Family History Mother Patient's mother is , Onset Age: 75 Father Family history of chronic obstructive pulmonary disease Social History Social History Smoking packs per day: 1 Smoking cigarettes per day: 20.0 Years smoked: 35 Smoking pack-years: 35.00 Smoking status: Former smoker Tobacco type: cigarettes Smoking end date: 02/17/05 Additional smoking assessment comments: HX OF 1PK/DAY/AGE 14 TO 60 Alcohol intake: never Alcohol use details: SOCCIALLY ON WEEKENDS Substance use: never Substance use type: does not use Gender identity (if verbalized by the patient): Male Spiritual care concerns: No Exam Const: General: alert and ill appearing Nutritional Appearance: thin Limitations: altered mental status Other: Severe respiratory distress, very anxious and restless HENMT: Other: On CPAP Eyes: Pupils: Equal, round and reactive pupils present Resp: Effort & Inspection: labored and tachypneic Other: Extremely tachypneic shallow respirations but lungs are essentially clear Cardio: Rate: tachycardic GI: GI Palp: No Tenderness to palpation present (GI) and No Rebound tenderness present Skin: General skin exam: pallor Neuro: General: moves all extremities Extrem: General: no pedal edema Psych: Affect: Anxious affect present Course Course Emergency Course: Cardiology did respond and did not feel his EKG was consistent with STEMI Given the severity of his distress and the pr
[2021-07-29 12:21] LABS: Alveolar/Arterial O2 Gradient 421.7 mmHg; Carboxyhemoglobin 0.3 % THb (0-2.0); Device BIPAP; Fractional Inspired Oxygen 100 %; HCO3 ABG 15.9 mEq/l (22.0-26.0); Methemoglobin ABG 0.3 %THb (0-1.5); Modified Allen's Test Pass; Oxygen Saturation ABG 99.6 % (95.0-100.0); Oxyhemoglobin 98.4 % THb (90.0-100.0); PCO2 ABG 25.4 mmHg (35.0-45.0); PO2 ABG 265.9 mmHg (80.0-100.0); PO2 FiO2 Ratio Arterial Blood 2.66 %; Site Drawn LEFT RADIAL; Total Hemoglobin 13.3 g/dL (12.0-18.0); pH ABG 7.414 (7.350-7.450)
[2021-07-29 12:22] LABS: Expiratory Pressure 6 cmH2O; Inspiratory Pressure 12 cmH2O
[2021-07-29] MEDS: LACTATED RINGERS 1,000 ML 999 ML IV CONT (12:39)
[2021-07-29] MEDS: DOXYCYCLINE IV 100 MG in SODIUM CHLORIDE 0.9% IV 100 ML IVPB ×2 (13:24→20:37)
[2021-07-29] MEDS: INSULIN HUMAN REGULAR (*BKC) 100 UNITS/ML 7 UNITS IV PUSH (13:24)
[2021-07-29] MEDS: INSULIN HUMAN REGULAR (*BKC) 100 UNITS in SODIUM CHLORIDE 0.9% IV 99 ML IV CONT (13:24)
[2021-07-29 13:33] LABS: Lactic Acid Reflex 2.7 mmol/L (0.7-2.1)
--- NOTE | 2021-07-29 14:00 | PM.IMHP ---
H&P: HPI History of Present Illness Date/Time: 07/29/21 14:00 Chief Complaint: Shortness of breath. Narrative: This is a pleasant 76-year-old male with chronic respiratory failure, COPD, hypertension, coronary artery disease, and diabetes who presented to the emergency department via EMS from home for evaluation of shortness of breath. He is known to the hospitalist service with an admission last month after presenting under similar circumstances, treated for COPD exacerbation and pneumonia. He endorses chronic dyspnea on exertion, even with activities around the home but his shortness of breath acutely worsened today. called 911 as he was struggling and on their EMS arrival his respiratory rate was in the 40s and SpO2 was reportedly in the 50s. He was placed on CPAP in given a nebulizer with improvement. On arrival to the emergency department he was quite anxious and was noted to be in a wide complex tachycardia. Given the severity of his distress cardioversion x1 was attempted with no affect. He was then transition to a BiPAP which improved his symptoms dramatically. At the time my evaluation he seems quite comfortable at the time my evaluation. Chest x-ray today demonstrated extensive bilateral airspace disease compatible with pneumonia and he is being admitted in this setting. He endorses a nonproductive cough though that has been present since last hospitalization. Temperature was 100? F on arrival today and his blood pressures have been on the low end of normal. Prior to today he has not been running a fever and he also denies chills, sweats, sinus congestion, sore throat, chest pain, pleuritic pain, nausea, vomiting, and diarrhea. No dysphagia or concerns for aspiration. He also denies sick contacts. He is vaccinated for COVID. Review of Systems Review of Systems: Twelve systems were reviewed and are negative except for as per HPI. [facility] Past Medical History Medical History (Updated 07/29/21 @ 22:10 by Chayo Vickers PA-C) Abdominal aortic aneurysm (AAA) 3.0 cm to 5.5 cm in diameter in male Adenomatous colon polyp Atherosclerotic heart disease of [place] coronary artery without angina pectoris Bilateral arm fractures Chronic obstructive pulmonary disease Contusion of toe with damage to nail Essential hypertension Foot drop, bilateral History of [place] (myocardial infarction) Major 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 Neuropathy Peripheral neuropathy Type 2 diabetes mellitus with diabetic polyneuropathy, without long-term current use of insulin Surgical History Surgical History (Updated 07/29/21 @ 21:51 by Chayo Vickers PA-C) History of heart artery stent History of orthopedic surgery ORIF bilateral arm and left ankle fractures. Family History Family History Mother Patient's mother is , Onset Age: 75 Father Family history of chronic obstructive pulmonary disease Social History Social History (Updated 07/29/21 @ 21:51 by Chayo Vickers PA-C) Social History: Surrogate decision maker: Keeley Arriaga, spouse. Code status: Full code. Smoking packs per day: 1 Smoking cigarettes per day: 20.0 Years smoked: 35 Smoking pack-years: 35.00 Smoking status: Former smoker Additional smoking assessment comments: HX OF 1PK/DAY/AGE 14 TO 60 Alcohol intake: never Alcohol use details: SOCCIALLY ON WEEKENDS Substance use: never Substance use type: does not use Gender identity (if verbalized by the patient): Male Spiritual care concerns: No Meds Home Medications and Allergies Home Medications Medication Instructions Recorded Confirmed Type aspirin 81 mg chewable tablet 81 mg PO DAILY 08/21/19 07/29/21 History blood sugar diagnostic #10 each 08/21/19 07/29/21 History blood-glucose meter #1 each 08/21/19 07/29/21 History cholecalciferol (vitamin D3) 25 25 mcg PO DAILY 12/12/20 07/29/21 History mcg (1,000 unit) capsul
[2021-07-29 14:32] LABS: SARS-CoV-2 RNA PCR Negative
[2021-07-29] MEDS: ENOXAPARIN 80 MG/0.8 ML SYRINGE 65 MG SUB-Q (14:42)
[2021-07-29 14:46] LABS: Glucose Point of Care 185 mg/dl (65-105)
[2021-07-29 14:46] LABS: Glucose Point of Care 162 mg/dl (65-105)
[2021-07-29 14:56] LABS: Anion Gap 9 mmol/L (8-16); Blood Urea Nitrogen 20 mg/dL (9-20); Calcium 8.8 mg/dL (8.4-10.2); Carbon Dioxide 22 mmol/L (22-30); Chloride 107 mmol/L (98-107); Estimated CRCL calculation 52 ml/min; Estimated Glomerular Filt Rate > 60; Glucose 147 mg/dL (65-110); Potassium 4.9 mmol/L (3.4-5.0); Sodium 138 mmol/L (137-145)
[2021-07-29 15:03] LABS: Troponin I 0.883 ng/mL (0.000-0.034)
--- NOTE | 2021-07-29 15:20 | ADMGEN ---
This patient, Aime Arriaga, was admitted to Intensive Care Unit-12. Patient/family oriented to hospital policies and general routines including ID bracelet, bed and alarms, visiting hours, pain management, procedures, bathroom and other care routines, personal items, smoking policy, room service/diet, and visiting hours. Information on how to activate the Rapid Response Team has been discussed. Patient/Family are encouraged to report perceived risks to care and to ask questions if they do not understand what they are told or what they should do.
[2021-07-29] MEDS: LACTATED RINGERS 1,000 ML 200 ML IV CONT (15:47)
[2021-07-29 16:04] LABS: Glucose Point of Care 134 mg/dl (65-105)
[2021-07-29 16:07] LABS: Reflex Lactic Acid Yes or No Add Lactic
--- NOTE | 2021-07-29 17:48 | PC.NURSE ---
Updated patient's spouse,Keeley, on patient condition and plan of care.
[2021-07-29 18:17] LABS: Anion Gap 10 mmol/L (8-16); Blood Urea Nitrogen 20 mg/dL (9-20); Calcium 8.5 mg/dL (8.4-10.2); Carbon Dioxide 19 mmol/L (22-30); Chloride 107 mmol/L (98-107); Estimated CRCL calculation 57 ml/min; Estimated Glomerular Filt Rate > 60; Glucose 146 mg/dL (65-110); Lactic Acid 1.6 mmol/L (0.7-2.1); Potassium 4.9 mmol/L (3.4-5.0); Sodium 136 mmol/L (137-145)
[2021-07-29] MEDS: FAMOTIDINE 20 MG/2 ML VIAL IV PUSH (20:38)
[2021-07-29 21:19] LABS: Glucose Point of Care 187 mg/dl (65-105)
[2021-07-29 22:00] LABS: Anion Gap 12 mmol/L (8-16); Blood Urea Nitrogen 19 mg/dL (9-20); Calcium 8.6 mg/dL (8.4-10.2); Carbon Dioxide 14 mmol/L (22-30); Chloride 108 mmol/L (98-107); Estimated CRCL calculation 57 ml/min; Estimated Glomerular Filt Rate > 60; Glucose 194 mg/dL (65-110); Potassium 4.4 mmol/L (3.4-5.0); Sodium 134 mmol/L (137-145)
[2021-07-29 22:27] LABS: Alveolar/Arterial O2 Gradient 393.7 mmHg; Base Excess ABG -7.2 mEq/l (+/-2.0); Carboxyhemoglobin 0.3 % THb (0-2.0); Fractional Inspired Oxygen 70 %; HCO3 ABG 15.3 mEq/l (22.0-26.0); Methemoglobin ABG 0.4 %THb (0-1.5); Oxygen Content ABG 15.7 %vol (16.0-22.0); Oxygen Saturation ABG 96.5 % (95.0-100.0); Oxyhemoglobin 94.2 % THb (90.0-100.0); PO2 ABG 80.5 mmHg (80.0-100.0); PO2 FiO2 Ratio Arterial Blood 1.15 %; Reduced Hemoglobin 5.1 %THb (0-5.0); Total Hemoglobin 11.8 g/dL (12.0-18.0); pH ABG 7.437 (7.350-7.450)
[2021-07-29 22:30] LABS: Device HIGH FLOW NASAL CANN; Modified Allen's Test Pass; PCO2 ABG 23.2 mmHg (35.0-45.0); Site Drawn RIGHT RADIAL
[2021-07-29 22:31] LABS: Hemoglobin A1C 6.4 % (<5.7)
[2021-07-29 23:54] LABS: Procalcitonin 5.6 ng/mL
[2021-07-30] VITALS (26 sets, daily range): BP systolic 99–135; BP diastolic 57–105; PULSE 63–135; RESP 16–32; TEMP 36.2–37; O2SAT 90–99
[2021-07-30 01:32] LABS: Anion Gap 8 mmol/L (8-16); Blood Urea Nitrogen 17 mg/dL (9-20); Calcium 8.6 mg/dL (8.4-10.2); Carbon Dioxide 21 mmol/L (22-30); Chloride 106 mmol/L (98-107); Estimated CRCL calculation 64 ml/min; Estimated Glomerular Filt Rate > 60; Glucose 139 mg/dL (65-110); Potassium 4.4 mmol/L (3.4-5.0); Sodium 135 mmol/L (137-145)
[2021-07-30] MEDS: ALBUTEROL SULFATE NEB 2.5 MG/0.5 ML INH 5 MG INHALATION ×4 (02:17→21:02)
[2021-07-30] MEDS: IPRATROPIUM BR 0.02% INH SOLN 0.5 MG/2.5 ML VIAL INHALATION ×4 (02:17→21:02)
[2021-07-30] MEDS: ENOXAPARIN 80 MG/0.8 ML SYRINGE 65 MG SUB-Q ×2 (05:15→17:54)
[2021-07-30 05:40] LABS: Hematocrit 34.3 % (42.0-52.0); Mean Corpuscular HGB Conc 32.1 g/dl (32-36); Mean Corpuscular Hemoglobin 25.2 pg (26-34); Mean Corpuscular Volume 78.5 fl (80-100); Mean Platelet Volume 9.9 fl (7.4-10.4); Platelet Count Result 246 k/mm3 (150-375); Red Blood Count 4.37 M/mm3 (4.6-6.20); Red Cell Distribution Width 17.6 % (11.5-14.5)
[2021-07-30 05:58] LABS: Alanine Aminotransferase 25 U/L (4-50); Albumin Level 3.7 g/dL (3.5-5.1); Alkaline Phosphatase 72 U/L (38-126); Anion Gap 10 mmol/L (8-16); Aspartate Amino Transferase 31 U/L (17-59); Bilirubin,Total 0.7 mg/dL (0.2-1.3); Blood Urea Nitrogen 15 mg/dL (9-20); CRP 8.4 mg/dL (<1.0); Calcium 8.8 mg/dL (8.4-10.2); Carbon Dioxide 18 mmol/L (22-30); Chloride 108 mmol/L (98-107); Estimated CRCL calculation 72 ml/min; Estimated Glomerular Filt Rate > 60; Glucose 147 mg/dL (65-110); Sodium 136 mmol/L (137-145)
[2021-07-30 07:32] LABS: Glucose Point of Care 93 mg/dl (65-105)
[2021-07-30 07:50] LABS: Thyroid Stimulating Hormone Reflex 0.407 uIU/mL (0.465-4.68)
[2021-07-30] MEDS: ASPIRIN 81 MG CHEWABLE TABLET PO (09:33)
[2021-07-30] MEDS: DOXYCYCLINE IV 100 MG in SODIUM CHLORIDE 0.9% IV 100 ML IVPB (09:33)
[2021-07-30] MEDS: PANTOPRAZOLE 40 MG TABLET PO (09:34)
[2021-07-30] MEDS: CHOLECALCIFEROL 1,000 UNITS TABLET 1000 UNITS PO (09:34)
[2021-07-30] MEDS: TAMSULOSIN HCL 0.4 MG CAPSULE PO (09:34)
[2021-07-30] MEDS: FAMOTIDINE 20 MG/2 ML VIAL IV PUSH (09:34)
--- NOTE | 2021-07-30 09:44 | WPDCNINT ---
Assessment and Plan Assessment and plan (1) Sepsis: Code(s): A41.9 - Sepsis, unspecified organism Status: Acute Assessment and Plan: Patient presented with acute onset shortness of breath, chest x-ray shows extensive bilateral airspace disease compatible with pneumonia, small right pleural effusion. -patient had wide complex tachycardia status post cardioversion with no effect -lactic acid was 2.7, repeat lactic acid has normalized -patient did receive IV fluids in the ER -patient is on ceftriaxone doxycycline, patient has been in the hospital last month in June 2021, will switch antibiotics to vancomycin and Zosyn -blood pressures remain stable at this time -07/29/2021 blood cultures have been obtained and pending (2) Multifocal pneumonia: Code(s): J18.9 - Pneumonia, unspecified organism Status: Acute Assessment and Plan: As above (3) Acute and chronic respiratory failure with hypoxia: Code(s): J96.21 - Acute and chronic respiratory failure with hypoxia Status: Acute Assessment and Plan: Acute respiratory failure likely related to bilateral pneumonia -patient also has a history of COPD -continue antibiotics as above -continue bronchodilators -initially was on BiPAP but was switched to Airvo, currently on 50 L and 65% FiO2. Will wean FiO2 to maintain O2 sats greater than 92% given history of COPD (4) Chronic obstructive pulmonary disease: Code(s): J44.9 - Chronic obstructive pulmonary disease, unspecified Status: Acute Assessment and Plan: Continue bronchodilators, no wheezing noted at this time, will hold steroids (5) Wide-complex tachycardia: Code(s): I47.2 - Ventricular tachycardia Status: Acute Assessment and Plan: Patient wide complex tachycardia in the ER, was cardioverted x1 without any change. Patient was placed on BiPAP with improvement of his symptoms. - (6) Elevated troponin: Code(s): R77.8 - Other specified abnormalities of plasma proteins Status: Acute Assessment and Plan: Elevated troponins could be related to eversion, acute respiratory failure. -troponins have been trending up, patient does have a history of coronary artery disease, currently on full-dose Lovenox, aspirin, -beta-blockers on hold due to borderline blood pressures -will repeat troponin, if elevated will have Cardiology evaluate the patient -echo has been ordered by hospitalist, (7) Type 2 diabetes mellitus with hyperglycemia: Code(s): E11.65 - Type 2 diabetes mellitus with hyperglycemia Status: Acute Assessment and Plan: Type 2 diabetes, currently on sliding scale insulin Accu-Cheks blood sugars have been stable -hemoglobin A1c is 6.4 this admission Additional Plan Discussed with patient updated with his condition and plan of care. I answered all questions Code status: Full code Critical care time spent: 43 minutes This dictation may have been done utilizing a voice recognition system. Attempts have been made to correct errors. However, there may be uncorrected grammatical, spelling, and recognition errors present. Due to a high probability of clinically significant, life threatening deterioration, the patient required my highest level of preparedness to intervene emergently and I personally spent this critical care time directly and personally managing the patient. This critical care time included obtaining a history; examining the patient; pulse oximetry; ordering and review of studies; arranging urgent treatment with development of a management plan; evaluation of patient's response to treatment; frequent reassessment; and discussions with other providers. It was exclusive of separately billable procedures and treating other patients and teaching time. Please see Assessment and Plan section and the rest of the note for further information on patient assessment and treatment Huller Operator Consult Note Consult date: 0
[2021-07-30 09:57] LABS: Free T4 Free Thyroxine Reflex 0.73 ng/dL (0.78-2.19)
[2021-07-30 11:08] LABS: Anion Gap 9 mmol/L (8-16); Blood Urea Nitrogen 14 mg/dL (9-20); Calcium 8.6 mg/dL (8.4-10.2); Carbon Dioxide 21 mmol/L (22-30); Chloride 106 mmol/L (98-107); Estimated CRCL calculation 83 ml/min; Estimated Glomerular Filt Rate > 60; Glucose 162 mg/dL (65-110); Potassium 4.1 mmol/L (3.4-5.0); Sodium 136 mmol/L (137-145)
[2021-07-30] MEDS: CITALOPRAM HYDROBROMIDE 20 MG TABLET PO (11:16)
[2021-07-30] MEDS: lisinopriL 5 MG TABLET PO (11:16)
[2021-07-30] MEDS: ATORVASTATIN 40 MG TABLET 80 MG PO (11:16)
[2021-07-30] MEDS: PERFLUTREN LIPID MICROSPHERES 1.5 ML VIAL DILUTED TO 10 ML TOTAL VOLUME IV PUSH (11:41)
--- NOTE | 2021-07-30 11:42 | IVDEFINITY ---
Prior to administration of IV Definity the patient was educated on the risks and benefits of the imaging enhancing agent including potential adverse side effects. The patient verbalized understanding. Allergies were verified. No exclusion criteria were identified and at least one of the following inclusion criteria were met: 1) physician request, 2) patient technically difficult to image (per the [place] [employer]chocardi[employer] guidelines of two or more segments not discernable within the apical view), or 3) questionable left ventricular function. ?
[2021-07-30 12:01] LABS: Glucose Point of Care 148 mg/dl (65-105)
[2021-07-30] MEDS: PIPERACILLIN/TAZOBACTAM SOD 4.5 GM in SODIUM CHLORIDE 0.9% IV 100 ML 200 ML IVPB ×2 (12:14→17:58)
--- NOTE | 2021-07-30 13:48 | PM.CNCAR ---
Assessment and Plan Assessment and plan (1) Elevated troponin: Code(s): R77.8 - Other specified abnormalities of plasma proteins <TOBY Olmos - Last Filed: 07/30/21 15:04> Status: Acute <Kathi A. ChataTOBY beasley - Last Filed: 07/30/21 15:04> Assessment and Plan: His troponins were drawn in the emergency department and did trend up. He denies having any chest pain currently and denies experiencing any recent episodes of chest pain. His EKG does not have any ischemic changes. Elevated troponins likely related to hypoxia, tachycardia, and DC cardioversion in the emergency department yesterday. No further work up is indicated or recommended. Echocardiogram from today showing normal LV systolic function, EF 55%. Grade 1 diastolic dysfunction. No significant valve abnormalities. <TOBY Olmos - Last Filed: 07/30/21 15:04> (2) Coronary artery disease: Code(s): I25.10 - Atherosclerotic heart disease of [place] coronary artery without angina pectoris <TOBY Olmos - Last Filed: 07/30/21 15:04> Status: Acute <TOBY Olmos - Last Filed: 07/30/21 15:04> Assessment and Plan: History of coronary disease with stenting of the proximal circumflex about 10 years ago. He also underwent elective stenting of the mid LAD in 2013. He has been stable since that time and not experiencing any anginal-type chest pain. On aspirin and atorvastatin. <TOBY Olmos - Last Filed: 07/30/21 15:04> (3) Wide-complex tachycardia: Code(s): I47.2 - Ventricular tachycardia <TOBY Olmos - Last Filed: 07/30/21 15:04> Status: Acute <TOBY Olmos - Last Filed: 07/30/21 15:04> Assessment and Plan: Sinus tachycardia with right bundle branch block by EKG from the emergency department yesterday. Currently in sinus rhythm. <TOBY Olmos - Last Filed: 07/30/21 15:04> (4) Type 2 diabetes mellitus with hyperglycemia: Code(s): E11.65 - Type 2 diabetes mellitus with hyperglycemia <Kathi CanoTOBY beasley - Last Filed: 07/30/21 15:04> Status: Acute <Kathi BrizuelaLORACata - Last Filed: 07/30/21 15:04> Assessment and Plan: Does not appear to be adequately controlled. Management per hospitalist service. <Kathi Cece CanoTOBY beasley - Last Filed: 07/30/21 15:04> (5) Acute and chronic respiratory failure with hypoxia: Code(s): J96.21 - Acute and chronic respiratory failure with hypoxia <Kathi CanoTOBY beasley - Last Filed: 07/30/21 15:04> Status: Acute <Kathi CanoLORA beasleyCata - Last Filed: 07/30/21 15:04> Assessment and Plan: Secondary to his chronic lung disease. Also has evidence of pneumonia on chest x-ray. He is being treated for pneumonia with antibiotics and COPD exacerbation is being managed with bronchodilators. Management per hospitalist service. <Kathi CanoLORA beasleyCata - Last Filed: 07/30/21 15:04> Additional Plan Attending Addendum: I have personally seen and examined this patient at bedside. I agree with the above documentation and plan of care as outlined. -76 yo with h/o CAD prior stent, COPD with recurrent admissions, HTN, small AAA, DM type II who presented with SOB placed on CPAP and given nebs as he was hypoxic O2 sat 50's. Er felt pt was in WCT (ST with BBB) for which he was defibrillated. CXR consistent with bilateral pneumonia. EKG reviewed by Dr. Rivas at presentation not felt to represent STEMI. Trop drawn and have trended up, no report of CP at any time. Echo EF 55% today. he was started on IV ABx, bronchodilators. On ASA, statin, Lisinopril. Exam: Elderly white male sitting up in bed increased work of breathing pleasant cooperative high-flow nasal cannula dyspneic with conversation, A&Ox3, nonfocal neuro exam No JVD Lungs poor air entry diffusely, rhonchi, prolonged expiratory phase, expiratory wheezes and crackles at bases
--- NOTE | 2021-07-30 14:16 | PC.NURSE ---
This patient, Aime Arriaga, was transferred to [facility] [place] on 07/30/21 at 1400. Personal belongings sent with patient. Report given to KASHIF Kilgore. Appropriate documentation sent with patient.
[2021-07-30 17:28] LABS: Glucose Point of Care 109 mg/dl (65-105)
[2021-07-30 20:47] LABS: Glucose Point of Care 89 mg/dl (65-105)
--- NOTE | 2021-07-30 22:10 | ECHO_ITS ---
Patient Info Name: Aime Arriaga Age: 76 years : 1945 Gender: Male Ht: 67 in Wt: 155 lbs BSA: 1.83 m2 HR: 76 bpm BP: 100 / 57 mmHg Heart Rhythm: Sinus Rhythm Exam Date: 07/30/2021 11:16 AM Exam Location: [facility] Pulmonary Patient Status: Inpatient Admit Date: 07/29/2021 Staff Ordering Physician: Chayo Vickers PA-C Terrestrial Ecologist: Richie Benoit, MARISELA, RT Attending Provider: Priyanka Ko M.A., MD Referring Physician: Rancho RODAS; Exam Type: CA echo dop color flow w con Study Info Indications I50.9 - Heart failure, unspecified Complete two-dimensional, color flow and Doppler transthoracic echocardiogram is performed with contrast to opacify the left ventricle and to improve the deliniation of the left ventricle endocardial borders. Strain analysis performed. Summary 1. Left ventricular chamber dimension is normal. 2. Left ventricular systolic function is normal, estimated at 55%. 3. There is mildly increased left ventricular wall thickness. 4. Left ventricular septal wall motion is abnormal with septal motion related to bundle branch block. 5. The left ventricular diastolic function is grade I diastolic dysfunction. 6. There is no aortic valve stenosis. 7. There is trace mitral valve regurgitation. 8. There is mild tricuspid valve regurgitation. 9. Moderate pulmonary hypertension, estimated pulmonary arterial systolic pressure is 55 mmHg. 10. Right ventricular chamber dimension is mildly enlarged with prominent moderator band. 11. Right ventricular systolic function is lower limits of normal TAPSE 1.8. Left Ventricle Left ventricular chamber dimension is normal. Left ventricular systolic function is normal, estimated at 55%. There is mildly increased left ventricular wall thickness. Left ventricular septal wall motion is abnormal with septal motion related to bundle branch block. The left ventricular diastolic function is grade I diastolic dysfunction. Right Ventricle Right ventricular chamber dimension is mildly enlarged with prominent moderator band. Right ventricular systolic function is lower limits of normal TAPSE 1.8. Left Atria Left atrial chamber dimension is mildly enlarged. Right Atria Right atrial chamber dimension is normal. Aortic Valve The aortic valve is probable trileaflet. There is mild aortic valve sclerosis. There is no aortic valve stenosis. There is no aortic valve regurgitation. Pulmonic Valve The pulmonic valve is not well visualized. There is mild pulmonic regurgitation. Mitral Valve The mitral valve has normal leaflets. There is trace mitral valve regurgitation. The mitral valve annulus is mildly calcified. Tricuspid Valve The tricuspid valve leaflets are normal. There is mild tricuspid valve regurgitation. Moderate pulmonary hypertension, estimated pulmonary arterial systolic pressure is 55 mmHg. Pericardium/Pleural The pericardium appears normal. There is trivial pericardial effusion. Inferior Vena Cava Dilated inferior vena cava with >50% collapse upon inspiration consistent with elevated right atrial pressure, 10 mmHg. Aorta The aortic root size at the sinus of Valsalva is mildly dilated. Left Ventricular Outflow Tract Name Value Normal LVOT 2D
[2021-07-31] VITALS (20 sets, daily range): BP systolic 98–111; BP diastolic 59–66; PULSE 59–106; RESP 17–22; TEMP 36.4–36.9; O2SAT 90–100
[2021-07-31] MEDS: PIPERACILLIN/TAZOBACTAM SOD 4.5 GM in SODIUM CHLORIDE 0.9% IV 100 ML 200 ML IVPB ×5 (01:17→23:59)
[2021-07-31 05:21] LABS: Basophils Percent Auto 0.2 % (0.2-1.2); Eosinophils Percent Auto 0.5 % (0-4.4); Immature Granulocyte Absolute 0.03 K/mm3 (0.00-0.031); Immature Granulocyte Percent A 0.3 % (0-0.5); Lymphocytes Absolute Auto 1.49 K/mm3 (0.9-3.2); Lymphocytes Percent Auto 17.1 % (18.3-44.2); Mean Corpuscular HGB Conc 32.3 g/dl (32-36); Mean Corpuscular Hemoglobin 25.4 pg (26-34); Mean Corpuscular Volume 78.9 fl (80-100); Mean Platelet Volume 10.3 fl (7.4-10.4); Monocytes Absolute Auto 0.6 K/mm3 (0.1-0.6); Monocytes Percent Auto 7.2 % (2.6-8.5); Neutrophils Absolute Auto 6.5 K/mm3 (1.3-6.7); Neutrophils Percent Auto 74.7 % (45.5-73.1); Platelet Count Result 231 k/mm3 (150-375); Red Blood Count 3.93 M/mm3 (4.6-6.20); Red Cell Distribution Width 17.8 % (11.5-14.5); White Blood Count 8.7 K/mm3 (4.5-10.0)
[2021-07-31 05:46] LABS: Alanine Aminotransferase 21 U/L (4-50); Albumin Level 3.3 g/dL (3.5-5.1); Alkaline Phosphatase 67 U/L (38-126); Anion Gap 5 mmol/L (8-16); Aspartate Amino Transferase 31 U/L (17-59); Bilirubin,Total 0.8 mg/dL (0.2-1.3); Blood Urea Nitrogen 15 mg/dL (9-20); Calcium 8.4 mg/dL (8.4-10.2); Carbon Dioxide 22 mmol/L (22-30); Chloride 110 mmol/L (98-107); Estimated CRCL calculation 64 ml/min; Estimated Glomerular Filt Rate > 60; Glucose 90 mg/dL (65-110); Magnesium 2.1 mg/dL (1.6-2.3); Phosphorus 2.9 mg/dL (2.5-4.5); Potassium 3.8 mmol/L (3.4-5.0); Sodium 137 mmol/L (137-145)
[2021-07-31] MEDS: ENOXAPARIN 80 MG/0.8 ML SYRINGE 65 MG SUB-Q ×2 (06:54→17:29)
[2021-07-31 08:42] LABS: Glucose Point of Care 94 mg/dl (65-105)
[2021-07-31] MEDS: ASPIRIN 81 MG CHEWABLE TABLET PO (09:07)
[2021-07-31] MEDS: CITALOPRAM HYDROBROMIDE 20 MG TABLET PO (09:07)
[2021-07-31] MEDS: lisinopriL 5 MG TABLET PO (09:07)
[2021-07-31] MEDS: ATORVASTATIN 40 MG TABLET 80 MG PO (09:07)
[2021-07-31] MEDS: CHOLECALCIFEROL 1,000 UNITS TABLET 1000 UNITS PO (09:07)
[2021-07-31] MEDS: PANTOPRAZOLE 40 MG TABLET PO (09:08)
[2021-07-31] MEDS: TAMSULOSIN HCL 0.4 MG CAPSULE PO (09:08)
[2021-07-31] MEDS: IPRATROPIUM BR 0.02% INH SOLN 0.5 MG/2.5 ML VIAL INHALATION ×3 (09:45→20:44)
[2021-07-31] MEDS: ALBUTEROL SULFATE NEB 2.5 MG/0.5 ML INH 5 MG INHALATION ×3 (09:46→20:45)
--- NOTE | 2021-07-31 12:26 | PM.IMPN ---
Progress Note: A&P Assessment and Plan (1) Sepsis: Code(s): A41.9 - Sepsis, unspecified organism Status: Acute Assessment and Plan: Present on admission and supported by fever, tachycardia, tachypnea, leukocytosis, and lactic acidosis Secondary to pneumonia Treated with broad-spectrum IV antibiotics Transferred from ICU to IMU on 07/31/2021 (2) Acute and chronic respiratory failure with hypoxia: Code(s): J96.21 - Acute and chronic respiratory failure with hypoxia Status: Acute Assessment and Plan: Most likely related to pneumonia and COPD but also patient has elevated D-dimer currently on therapeutic Lovenox CT scan of the chest once hemodynamically stable (3) Multifocal pneumonia: Code(s): J18.9 - Pneumonia, unspecified organism Status: Acute Assessment and Plan: COVID-19 is negative continue broad-spectrum IV antibiotics (4) Wide-complex tachycardia: Code(s): I47.2 - Ventricular tachycardia Status: Acute Assessment and Plan: Wide complex tachycardia noted on arrival to the emergency department. Given the severity of the patient's distress, the decision was made to attempt cardioversion x1 though it had no effect. Once patient was transition to BiPAP he was much more stable. Cardiology following (5) Elevated troponin: Code(s): R77.8 - Other specified abnormalities of plasma proteins Status: Acute Assessment and Plan: Plan for ischemic evaluation once hemodynamically stable (6) Chronic obstructive pulmonary disease: Code(s): J44.9 - Chronic obstructive pulmonary disease, unspecified Status: Acute Assessment and Plan: Continue nebulizer treatment (7) Type 2 diabetes mellitus with hyperglycemia: Code(s): E11.65 - Type 2 diabetes mellitus with hyperglycemia Status: Acute Assessment and Plan: With mild DKA resolved continue insulin sliding scale (8) Coronary artery disease: Code(s): I25.10 - Atherosclerotic heart disease of [place] coronary artery without angina pectoris Status: Acute Assessment and Plan: troponin elevated the patient is having no chest pain. Continue aspirin, statin, and beta-hue. Subjective Date/time seen: 07/31/21 12:26 Interval history: 76 years old male was recently treated in the hospital for pneumonia and COPD exacerbation patient presented to the hospital with shortness of breath and hypoxia saturation was in 50s patient was treated with BiPAP also in the ER patient was noted to have wide complex tachycardia had cardioversion chest x-ray in [place] showed bilateral pneumonia patient was admitted to the ICU as blood pressure was in the lower side and also patient required BiPAP patient treated with broad-spectrum IV antibiotic cardiology was consulted for elevated troponin plan for Lovenox for 48 hours then ischemic eval once hemodynamically stable currently patient on Airvo in IMU Patient feels weak Patient denies fever headache chest pain I am seeing the patient for pneumonia Exam Narrative: Alert Chest bilateral crackles decreased air entry bilateral on Airvo Abdomen nontender nondistended CVS S1 + S2 Negative Lower extremity edema Objective Data Vital Signs Vital Signs: Vital Signs - 24 hr 07/30/21 14:00 07/30/21 14:53 07/30/21 14:58 Temperature 98.6 F Pulse Rate 135 H 85 78 Respiratory Rate 32 H 18 18 Blood Pressure 135/105 H Pulse Oximetry 97 96 07/30/21 15:01 07/30/21 16:00 07/30/21 18:00 Temperature 98 F Pulse Rate 87 85 103 H Respiratory Rate 18 30 H Blood Pressure 126/63 Pulse Oximetry 90 07/30/21 20:00 07/30/21 21:02 07/30/21 21:03 Temperature 98.2 F Pulse Rate 89 65 65 Respiratory Rate 24 H 18 18 Blood Pressure 116/72 Pulse Oximetry 90 96 07/30/21 21:10 07/30/21 21:57 07/30/21 23:24 Temperature 97.2 F L Pulse Rate 67 65 64 Respiratory Rate 18 22 H Bloo
--- NOTE | 2021-07-31 13:01 | PM.PNCARD ---
Progress Note: A&P Additional Plan 76-year-old man with: Modest troponin elevation related to hypoxemia patient has severe underlying oxygen-dependent COPD as well as pneumonic infiltrate as well. In this setting he was very tachycardic on admission but this was sinus rhythm which of course did not respond to attempts at cardioversion. With improvement in his oxygenation he is no longer tachycardic. This type of troponin elevation is the so-called type 2 infarction and does not require further workup in my opinion. Patient is primarily dealing with severe chronic lung disease and now has a pneumonic infiltrate as well. Will follow with you while he is in the hospital. Appropriate cardiac follow-up will be scheduled upon discharge. Mainor Rivas MD [facility] Subjective Date/time seen: Date of service: 07/31/21 13:01 Interval history: Follow-up visit in this 76-year-old man with: Chronic coronary artery disease presenting to the hospital with severe respiratory distress very tachycardic sinus rhythm with right bundle branch block and bifascicular block. Patient in the field was declared as a STEMI. This was canceled after I saw him in the emergency room. Patient has a significant right lung pneumonia and severe underlying emphysema. Responded well to BiPAP and now receiving antibiotics. Patient is back on nasal cannula oxygen now it is much more comfortable. Denies having any significant chest pain at the time of admission. Exam Const: General: comfortable and no acute distress Other: 76-year-old gentleman who is relatively comfortable barrel-chested with nasal cannula oxygen in place HENMT: Mouth: Yes moist mucous membranes Eyes: Sclera: sclerae normal Neck: Neck: supple and no JVD Resp: Other: Breath sounds are diminished throughout both lung johnson Cardio: Rate: regular rate Rhythm: regular rhythm GI: GI Palp: Yes Soft to palpation Auscultation: normal bowel sounds Skin: General skin exam: normal color Neuro: Cognition (Neuro): normal cognition Objective Data Vital Signs Vital Signs: Vital Signs - 24 hr 07/30/21 14:00 07/30/21 14:53 07/30/21 14:58 Temperature 37.0 C Pulse Rate 135 H 85 78 Respiratory Rate 32 H 18 18 Blood Pressure 135/105 H Pulse Oximetry 97 96 07/30/21 15:01 07/30/21 16:00 07/30/21 18:00 Temperature 36.6 C Pulse Rate 87 85 103 H Respiratory Rate 18 30 H Blood Pressure 126/63 Pulse Oximetry 90 07/30/21 20:00 07/30/21 21:02 07/30/21 21:03 Temperature 36.8 C Pulse Rate 89 65 65 Respiratory Rate 24 H 18 18 Blood Pressure 116/72 Pulse Oximetry 90 96 07/30/21 21:10 07/30/21 21:57 07/30/21 23:24 Temperature 36.2 C L Pulse Rate 67 65 64 Respiratory Rate 18 22 H Blood Pressure 118/69 Pulse Oximetry 99 07/31/21 00:00 07/31/21 02:00 07/31/21 02:47 Temperature Pulse Rate 62 62 63 Respiratory Rate 18 Blood Pressure Pulse Oximetry 92 07/31/21 04:00 07/31/21 05:30 07/31/21 06:00 Temperature 36.6 C Pulse Rate 63 62 Respiratory Rate 22 H Blood Pressure 98/66 L Pulse Oximetry 100 95 07/31/21 08:00 07/31/21 09:46 07/31/21 10:00 Temperature 36.9 C Pulse Rate 59 L 66 68 Respiratory Rate 20 18 Blood Pressure 111/66 Pulse Oximetry 100 07/31/21 12:00 Temperature Pulse Rate 62 Respiratory Rate 20 Blood Pressure Pulse Oximetry 100 Intake/Output Intake/Output: Intake & Output 07/28/21 07/29/21 07/30/21 07/31/21 23:59 23:59 23:59 23:59 Intake Total 2700 2370 1580 Output Total 325 1675 1500 Balance 2375 695 80 Meds/Results Medications: Active Medications Generic Name Dose Route Start Last Admin Trade Name Alecq PRN Reason Stop Dose Admin Acetaminophen 650 mg 07/29/21 13:27 Acetaminophen 325 Mg Tablet PO Q4H PRN Mild Pain (1-3) or Fever Albuterol 5 mg 07/29/21 14:00 07/31/21 09:46 Albuterol Sulfate Neb 2.5 Mg/0.5 Ml Inh INHALATION 5 mg Q6HRT [facility] Ad
[2021-07-31 13:15] LABS: Glucose Point of Care 99 mg/dl (65-105)
[2021-07-31 18:24] LABS: Glucose Point of Care 88 mg/dl (65-105)
[2021-07-31 20:53] LABS: Glucose Point of Care 100 mg/dl (65-105)
--- NOTE | 2021-07-31 21:45 | PM.CNPUL ---
Assessment and Plan Assessment and plan (1) Acute and chronic respiratory failure with hypoxia: Onset Date: ~07/2021 Code(s): J96.21 - Acute and chronic respiratory failure with hypoxia Status: Acute Assessment and Plan: He has multifocal pneumonia with chronic hypoxemic respiratory failure, on O2 at home for a year, now with bilateral pneumonia admitted with sepsis. He was transferred out of the ICU and still requires high flow O2. Will wean this as he is able, and have Home o2 evaluation prior to discharge. (2) Multifocal pneumonia: Code(s): J18.9 - Pneumonia, unspecified organism Status: Acute Assessment and Plan: patchy bilateral infiltrates R>L, coag negative staph from BC, likely contaminant. No pathogen isolated on his sputum. Urine antigens for pneumococcus and Legionella are pending. He is requiring high amount of O2 on a High Flow system 55 L/min and 50ish% O2. (3) Chronic obstructive pulmonary disease: Qualifiers: COPD type: unspecified COPD Qualified Code(s): J44.9 - Chronic obstructive pulmonary disease, unspecified Code(s): J44.9 - Chronic obstructive pulmonary disease, unspecified Status: Acute Assessment and Plan: Heavy tobacco, started age 14, up to 1.5 ppd, quit 15 years ago; smoked 47 years x 1 - 1.5 ppd, over 50 pack years. At home uses Advair and think he is also on Spiriva as well as albuterol nebulized several times a day. These inhaled medications are not listed with his home medications. Will start Advair & Incruse, chagne albuterol nebs to p.r.n. and stop ipratropium nebs. (4) Ex-smoker: Code(s): Z87.891 - Personal history of nicotine dependence Status: Acute Assessment and Plan: None x 15 years, 47 pack years total. (5) Pulmonary hypertension: Code(s): I27.20 - Pulmonary hypertension, unspecified Status: Acute Assessment and Plan: Elevated RVSP on echo 55 mmHg 07/30/21 This is likely multifactorial and secondary to COPD and hypoxemia. He says that he was not aware of this daignosis. Hs not been tested for sleep apnea. He is followed by Dr Tomas in [place]. 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 He was admitted Jul 29 with increased shortness of breath, was in the ICU, was transferred out after treatment of sepsis due to bilateral pneumonia, and is requiring High Flow O2 to maintain adequate saturation. He has COPD, sees Dr Tomas, has been on O2 about a year, 3 L at rest and 4-5 L/min with exertion. He feels much better since admission, has little sputum, no wheezing, modest shortness of breath. 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; PMFSH Past Medical History Medical History Abdominal aortic aneurysm (AAA) 3.0 cm to 5.5 cm in diameter in male Adenomatous colon polyp Atherosclerotic heart disease of [place] coronary artery without angina pectoris Bilateral arm fractures Chronic obstructive pulmonary disease Contusion of toe with damage to nail Essential hypertension Foot drop, bilateral History of MA (myocardial infarction) Major 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 Neuropathy Peripheral neuropathy Type 2 diabetes mellitus with diabetic polyneuropathy, without long-term current use of insulin Surgical History Surgical History Hist
[2021-08-01] VITALS (26 sets, daily range): BP systolic 97–119; BP diastolic 56–62; PULSE 54–98; RESP 18–24; TEMP 36.2–36.8; O2SAT 91–100
[2021-08-01] MEDS: IPRATROPIUM BR 0.02% INH SOLN 0.5 MG/2.5 ML VIAL INHALATION ×4 (02:18→21:21)
[2021-08-01] MEDS: ALBUTEROL SULFATE NEB 2.5 MG/0.5 ML INH 5 MG INHALATION ×4 (02:18→21:21)
[2021-08-01] MEDS: ENOXAPARIN 80 MG/0.8 ML SYRINGE 65 MG SUB-Q ×2 (05:39→17:35)
[2021-08-01] MEDS: PIPERACILLIN/TAZOBACTAM SOD 4.5 GM in SODIUM CHLORIDE 0.9% IV 100 ML 200 ML IVPB ×4 (05:40→23:55)
[2021-08-01 08:39] LABS: Glucose Point of Care 94 mg/dl (65-105)
[2021-08-01] MEDS: ATORVASTATIN 40 MG TABLET 80 MG PO (09:19)
[2021-08-01] MEDS: CHOLECALCIFEROL 1,000 UNITS TABLET 1000 UNITS PO (09:19)
[2021-08-01] MEDS: lisinopriL 5 MG TABLET PO (09:19)
[2021-08-01] MEDS: TAMSULOSIN HCL 0.4 MG CAPSULE PO (09:19)
[2021-08-01] MEDS: PANTOPRAZOLE 40 MG TABLET PO (09:19)
[2021-08-01] MEDS: CITALOPRAM HYDROBROMIDE 20 MG TABLET PO (09:19)
[2021-08-01] MEDS: ASPIRIN 81 MG CHEWABLE TABLET PO (09:19)
[2021-08-01 09:25] LABS: Hemoglobin 11.4 g/dL (14.0-18.0); Mean Corpuscular HGB Conc 31.7 g/dl (32-36); Mean Corpuscular Hemoglobin 25.6 pg (26-34); Mean Corpuscular Volume 80.9 fl (80-100); Mean Platelet Volume 9.7 fl (7.4-10.4); Platelet Count Result 240 k/mm3 (150-375); Red Blood Count 4.45 M/mm3 (4.6-6.20); Red Cell Distribution Width 17.7 % (11.5-14.5); White Blood Count 6.1 K/mm3 (4.5-10.0)
[2021-08-01 09:41] LABS: Anion Gap 5 mmol/L (8-16); Blood Urea Nitrogen 11 mg/dL (9-20); Calcium 8.8 mg/dL (8.4-10.2); Carbon Dioxide 24 mmol/L (22-30); Chloride 110 mmol/L (98-107); Estimated CRCL calculation 57 ml/min; Estimated Glomerular Filt Rate > 60; Glucose 85 mg/dL (65-110); Sodium 139 mmol/L (137-145)
--- NOTE | 2021-08-01 10:52 | PM.IMPN ---
Progress Note: A&P Assessment and Plan (1) Multifocal pneumonia: Code(s): J18.9 - Pneumonia, unspecified organism Status: Acute Assessment and Plan: COVID-19 is negative continue broad-spectrum IV antibiotics 08/01 initiate PT/OT (2) Acute and chronic respiratory failure with hypoxia: Code(s): J96.21 - Acute and chronic respiratory failure with hypoxia Status: Acute Assessment and Plan: Most likely related to pneumonia and COPD but also patient has elevated D-dimer currently on therapeutic Lovenox CTA chest 08/02 (3) Wide-complex tachycardia: Code(s): I47.2 - Ventricular tachycardia Status: Acute Assessment and Plan: Wide complex tachycardia noted on arrival to the emergency department. Given the severity of the patient's distress, the decision was made to attempt cardioversion x1 though it had no effect. Once patient was transition to BiPAP he was much more stable. Cardiology following (4) Elevated troponin: Code(s): R77.8 - Other specified abnormalities of plasma proteins Status: Acute Assessment and Plan: NO ACS Plan for ischemic evaluation once stable (5) Chronic obstructive pulmonary disease: Qualifiers: COPD type: unspecified COPD Qualified Code(s): J44.9 - Chronic obstructive pulmonary disease, unspecified Code(s): J44.9 - Chronic obstructive pulmonary disease, unspecified Status: Acute Assessment and Plan: Continue nebulizer treatment (6) Type 2 diabetes mellitus with hyperglycemia: Qualifiers: Diabetes mellitus fci insulin use: unspecified bed bug exterminator insulin use status Qualified Code(s): E11.65 - Type 2 diabetes mellitus with hyperglycemia Code(s): E11.65 - Type 2 diabetes mellitus with hyperglycemia Status: Acute Assessment and Plan: With mild DKA resolved continue insulin sliding scale (7) Coronary artery disease: Qualifiers: Coronary Disease-Associated Artery/Lesion type: unspecified vessel or lesion type [place] vs. transplanted heart: unspecified whether [place] or transplanted heart Associated angina: unspecified whether angina present Qualified Code(s): I25.10 - Atherosclerotic heart disease of [place] coronary artery without angina pectoris Code(s): I25.10 - Atherosclerotic heart disease of [place] coronary artery without angina pectoris Status: Acute Assessment and Plan: troponin elevated the patient is having no chest pain. Continue aspirin, statin, and beta-hue. (8) Sepsis: Qualifiers: Sepsis type: sepsis due to unspecified organism Sepsis acute organ dysfunction status: with acute organ dysfunction Severe sepsis acute organ dysfunction type: acute respiratory failure Acute respiratory failure type: with hypoxia Severe sepsis shock status: without septic shock Qualified Code(s): A41.9 - Sepsis, unspecified organism; R65.20 - Severe sepsis without septic shock; J96.01 - Acute respiratory failure with hypoxia Code(s): A41.9 - Sepsis, unspecified organism Status: Acute Assessment and Plan: Present on admission and supported by fever, tachycardia, tachypnea, leukocytosis, and lactic acidosis Secondary to pneumonia Treated with broad-spectrum IV antibiotics Resolved Subjective Date/time seen: 08/01/21 10:52 Interval history: 08/01 visit: No shortness of breath unless he tries to exert. A bit short of breath with conversation. Still on Airvo high-flow. Denied pain. Denied GI or symptoms. Appetite is good. Has chronic hypoxemic respiratory failure requiring 5 L by nasal cannula at home. Review of Systems Review of Systems: All systems reviewed & are unremarkable except as noted in HPI and below Exam Narrative: HEENT: PERRL, sclerae nonicteric, pharyngeal mucosa pink and intact NECK: No JVD CHEST: Mildly tachypneic. Decreased breath sounds. HEART: NL S1/S2,
[2021-08-01 13:21] LABS: Glucose Point of Care 92 mg/dl (65-105)
--- NOTE | 2021-08-01 13:25 | PM.PNCARD ---
Progress Note: A&P Assessment and Plan (1) Elevated troponin: Code(s): R77.8 - Other specified abnormalities of plasma proteins Status: Acute Assessment and Plan: His troponins were drawn in the emergency department and did trend up. He denies having any chest pain currently and denies experiencing any recent episodes of chest pain. His EKG does not have any ischemic changes. Elevated troponins likely related to hypoxia, tachycardia, and DC cardioversion in the emergency department yesterday. No further work up is indicated or recommended at this time. Anticipate follow up as an outpatient. May discontinue therapeutic enoxaparin, change to DVT dosing 40 mg subcutaneous daily. Continue aspirin, statin, lisinopril. Echocardiogram from today showing normal LV systolic function, EF 55%. Grade 1 diastolic dysfunction. No significant valve abnormalities. Will see patient as needed. Please do not hesitate to contact us with any additional questions or concerns. (2) Coronary artery disease: Code(s): I25.10 - Atherosclerotic heart disease of [place] coronary artery without angina pectoris Status: Acute Assessment and Plan: History of coronary disease with stenting of the proximal circumflex about 10 years ago. He also underwent elective stenting of the mid LAD in 2013. He has been stable since that time and not experiencing any anginal-type chest pain. On aspirin and atorvastatin. (3) Wide-complex tachycardia: Code(s): I47.2 - Ventricular tachycardia Status: Acute Assessment and Plan: Sinus tachycardia with right bundle branch block by EKG from the emergency department yesterday. Currently in sinus rhythm. No documentation of ventricular tachycardia. (4) Type 2 diabetes mellitus with hyperglycemia: Code(s): E11.65 - Type 2 diabetes mellitus with hyperglycemia Status: Acute Assessment and Plan: Does not appear to be adequately controlled. Management per hospitalist service. (5) Acute and chronic respiratory failure with hypoxia: Code(s): J96.21 - Acute and chronic respiratory failure with hypoxia Status: Acute Assessment and Plan: Secondary to his chronic lung disease. He is being treated for pneumonia with antibiotics and COPD exacerbation is being managed with bronchodilators. Management per hospitalist service. Subjective Date/time seen: Date of service:08/01/21 13:25 Interval history: Follow-up visit in this 76-year-old man with: Chronic coronary artery disease presenting to the hospital with severe respiratory distress very tachycardic sinus rhythm with right bundle branch block and bifascicular block. Patient in the field was declared as a STEMI. This was canceled after Dr. Rivas evaluated EKG in ER. Today, patient feeling much better. Denies chest pain, palpitations. No new issues overnight. Telemetry unremarkable. shortness of breath persists but is improving. Eating well. Review of Systems Constitutional: Constitutional: Denies excessive sweating, Denies fatigue, Denies headache(s), Denies lethargy and Denies weakness Eyes: Eyes: Denies blurry vision ENT: Reports Normal hearing present, Denies headache(s) and Denies epistaxis Cardiovascular: Cardiovascular: Denies pedal edema, Denies leg edema, Reports palpitations, Reports dyspnea and Reports dyspnea on exertion Respiratory: Respiratory: Reports dyspnea, Reports dyspnea on exertion and Reports wheezing Gastrointestinal: Gastrointestinal: Denies abdominal pain Genitourinary: Genitourinary: Denies hematuria Musculoskeletal: Musculoskeletal: Denies back pain and Denies numbness Integumentary/Breasts: Skin/Breast: Reports dry skin, Denies erythema, Denies rash and Denies wounds Neurologic: Reports Normal hearing present, Denies Abnormal speech present, Denies confusion, Denies headache(s), Denies numbness and Denies weakness Psychiatric: Psychiatric
[2021-08-01 16:25] LABS: Vancomycin Trough 8.1 ug/mL (10.0-20.0)
[2021-08-01 18:11] LABS: Glucose Point of Care 131 mg/dl (65-105)
[2021-08-01 21:16] LABS: Glucose Point of Care 115 mg/dl (65-105)
[2021-08-02] VITALS (18 sets, daily range): BP systolic 95–125; BP diastolic 42–81; PULSE 53–90; RESP 16–22; TEMP 36.4–37.1; O2SAT 90–100
[2021-08-02 05:23] LABS: Hematocrit 34.3 % (42.0-52.0); Hemoglobin 10.9 g/dL (14.0-18.0); Mean Corpuscular HGB Conc 31.8 g/dl (32-36); Mean Corpuscular Hemoglobin 25.5 pg (26-34); Mean Corpuscular Volume 80.3 fl (80-100); Mean Platelet Volume 9.5 fl (7.4-10.4); Platelet Count Result 229 k/mm3 (150-375); Red Blood Count 4.27 M/mm3 (4.6-6.20); Red Cell Distribution Width 17.5 % (11.5-14.5)
[2021-08-02 05:45] LABS: Anion Gap 3 mmol/L (8-16); Blood Urea Nitrogen 13 mg/dL (9-20); Calcium 8.8 mg/dL (8.4-10.2); Carbon Dioxide 27 mmol/L (22-30); Chloride 107 mmol/L (98-107); Estimated CRCL calculation 52 ml/min; Estimated Glomerular Filt Rate > 60; Glucose 103 mg/dL (65-110); Potassium 4.3 mmol/L (3.4-5.0); Sodium 137 mmol/L (137-145)
[2021-08-02] MEDS: PIPERACILLIN/TAZOBACTAM SOD 4.5 GM in SODIUM CHLORIDE 0.9% IV 100 ML 200 ML IVPB ×4 (06:19→23:18)
[2021-08-02] MEDS: ENOXAPARIN 80 MG/0.8 ML SYRINGE 65 MG SUB-Q ×2 (06:19→17:35)
[2021-08-02 08:25] LABS: Glucose Point of Care 139 mg/dl (65-105)
[2021-08-02] MEDS: lisinopriL 5 MG TABLET PO (08:34)
[2021-08-02] MEDS: PANTOPRAZOLE 40 MG TABLET PO (08:34)
[2021-08-02] MEDS: CHOLECALCIFEROL 1,000 UNITS TABLET 1000 UNITS PO (08:34)
[2021-08-02] MEDS: TAMSULOSIN HCL 0.4 MG CAPSULE PO (08:34)
[2021-08-02] MEDS: ATORVASTATIN 40 MG TABLET 80 MG PO (08:34)
[2021-08-02] MEDS: CITALOPRAM HYDROBROMIDE 20 MG TABLET PO (08:34)
[2021-08-02] MEDS: ASPIRIN 81 MG CHEWABLE TABLET PO (08:36)
[2021-08-02] MEDS: FLUTICASONE/SALMETEROL 230-21 MCG INHALER 1 PUFF 2 PUFF INHALATION ×2 (08:42→21:12)
[2021-08-02] MEDS: UMECLIDINIUM BROMIDE 62.5 MCG ELLIPTA 1 PUFF INHALATION (08:45)
[2021-08-02 13:01] LABS: Glucose Point of Care 103 mg/dl (65-105)
--- NOTE | 2021-08-02 14:29 | PM.IMPN ---
Progress Note: A&P Assessment and Plan (1) Multifocal pneumonia: Code(s): J18.9 - Pneumonia, unspecified organism Status: Acute Assessment and Plan: COVID-19 is negative continue broad-spectrum IV antibiotics 08/01 initiate PT/OT (2) Acute and chronic respiratory failure with hypoxia: Onset Date: ~07/2021 Code(s): J96.21 - Acute and chronic respiratory failure with hypoxia Status: Acute Assessment and Plan: Most likely related to pneumonia and COPD but also patient has elevated D-dimer currently on therapeutic Lovenox CTA chest 08/02 with ground-glass opacities and septal thickening in the right lung and left lower lobe and no pulmonary embolus. (3) Wide-complex tachycardia: Code(s): I47.2 - Ventricular tachycardia Status: Acute Assessment and Plan: Wide complex tachycardia noted on arrival to the emergency department. Given the severity of the patient's distress, the decision was made to attempt cardioversion x1 though it had no effect. Once patient was transition to BiPAP he was much more stable. Sinus tachycardia with right bundle branch block and no evidence for ventricular tachycardia. Cardiology following. (4) Elevated troponin: Code(s): R77.8 - Other specified abnormalities of plasma proteins Status: Acute Assessment and Plan: NO ACS Plan for ischemic evaluation once stable (5) Chronic obstructive pulmonary disease: Qualifiers: COPD type: unspecified COPD Qualified Code(s): J44.9 - Chronic obstructive pulmonary disease, unspecified Code(s): J44.9 - Chronic obstructive pulmonary disease, unspecified Status: Acute Assessment and Plan: Continue nebulizer treatment (6) Type 2 diabetes mellitus with hyperglycemia: Qualifiers: Diabetes mellitus group home insulin use: unspecified [place] insulin use status Qualified Code(s): E11.65 - Type 2 diabetes mellitus with hyperglycemia Code(s): E11.65 - Type 2 diabetes mellitus with hyperglycemia Status: Acute Assessment and Plan: With mild DKA resolved continue insulin sliding scale Blood sugars reviewed 08/02 and adequately controlled. (7) Coronary artery disease: Qualifiers: Coronary Disease-Associated Artery/Lesion type: unspecified vessel or lesion type [place] vs. transplanted heart: unspecified whether [place] or transplanted heart Associated angina: unspecified whether angina present Qualified Code(s): I25.10 - Atherosclerotic heart disease of [place] coronary artery without angina pectoris Code(s): I25.10 - Atherosclerotic heart disease of [place] coronary artery without angina pectoris Status: Acute Assessment and Plan: troponin elevated the patient is having no chest pain. Continue aspirin, statin, and beta-hue. (8) Sepsis: Qualifiers: Sepsis type: sepsis due to unspecified organism Sepsis acute organ dysfunction status: with acute organ dysfunction Severe sepsis acute organ dysfunction type: acute respiratory failure Acute respiratory failure type: with hypoxia Severe sepsis shock status: without septic shock Qualified Code(s): A41.9 - Sepsis, unspecified organism; R65.20 - Severe sepsis without septic shock; J96.01 - Acute respiratory failure with hypoxia Code(s): A41.9 - Sepsis, unspecified organism Status: Acute Assessment and Plan: Present on admission and supported by fever, tachycardia, tachypnea, leukocytosis, and lactic acidosis Secondary to pneumonia Treated with broad-spectrum IV antibiotics Resolved Subjective Date/time seen: 08/02/21 14:29 Interval history: August 02 visit. Feels much better today. Good appetite. Denied pain. Short of breath with any activity. Transition from Airvo to high-flow nasal cannula at 15 L this morning. Tolerating well so far. Review of Systems Review of Systems: All systems reviewed & a
--- NOTE | 2021-08-02 18:32 | PM.PNPUL ---
Progress Note: A&P Assessment and Plan (1) Acute and chronic respiratory failure with hypoxia: Onset Date: ~07/2021 Code(s): J96.21 - Acute and chronic respiratory failure with hypoxia Status: Acute Assessment and Plan: He has multifocal pneumonia with chronic hypoxemic respiratory failure, on O2 at home for a year, now with bilateral pneumonia admitted with sepsis. He was transferred out of the ICU and still requires high flow O2. Will wean this as he is able, and have Home o2 evaluation prior to discharge. (2) Multifocal pneumonia: Code(s): J18.9 - Pneumonia, unspecified organism Status: Acute Assessment and Plan: patchy bilateral infiltrates R>L, coag negative staph from BC, likely contaminant. No pathogen isolated on his sputum. Urine antigens for pneumococcus and Legionella are pending. He is requiring high amount of O2 on a High Flow system 55 L/min and 50ish% O2. (3) Chronic obstructive pulmonary disease: Qualifiers: COPD type: unspecified COPD Qualified Code(s): J44.9 - Chronic obstructive pulmonary disease, unspecified Code(s): J44.9 - Chronic obstructive pulmonary disease, unspecified Status: Acute Assessment and Plan: Heavy tobacco, started age 14, up to 1.5 ppd, quit 15 years ago; smoked 47 years x 1 - 1.5 ppd, over 50 pack years. At home uses Advair and think he is also on Spiriva as well as albuterol nebulized several times a day. These inhaled medications are not listed with his home medications. Treat with Advair & Incruse, change albuterol nebs to p.r.n. and stop ipratropium nebs. (4) Ex-smoker: Code(s): Z87.891 - Personal history of nicotine dependence Status: Acute Assessment and Plan: None x 15 years, 47 pack years total. (5) Pulmonary hypertension: Code(s): I27.20 - Pulmonary hypertension, unspecified Status: Acute Assessment and Plan: Elevated RVSP on echo 55 mmHg 07/30/21 This is likely multifactorial and secondary to COPD and hypoxemia. He says that he was not aware of this daignosis. Hs not been tested for sleep apnea. He is followed by Dr Tomas in [place]. Subjective Date/time seen: 08/02/21 18:32 This 76 year old man is seen in follow up for acute on chronic hypoxemic respiratory failure due to pneumonia, requires high flow O2. Has COPD. He feels better, less short of breath. Review of Systems Review of Systems: All systems reviewed & are unremarkable except as noted in HPI and below Exam Narrative: GEN: Alert, oriented, not in distress. He is on a high flow nasal cannula sitting up in bed, able to move about without assistance HEENT: pupils are equal, EOMI, symmetrical face; oral membranes moist, no upper teeth, Mallampati II airway NECK: Trachea is midline CHEST: Equal air entry, hyperinflated chest; symmetric excursion, decreased breath sounds anteriorly; crackles in both bases posteriorly. No wheezing. CV: Regular S1S2 no m/g/r ABD : (+) bowel sounds Extremities : no clubbing, cyanosis, or edema; thenar wasting both hands. He has thin lower legs. PSYCH: normal thought and speech, gait is not tested. Objective Data Vital Signs Vital Signs: Vital Signs - 24 hr 08/01/21 20:00 08/01/21 21:23 08/01/21 21:25 Temperature 36.8 C Pulse Rate 63 62 Respiratory Rate 20 20 Blood Pressure 104/60 Pulse Oximetry 94 97 08/01/21 21:31 08/01/21 22:00 08/02/21 00:00 Temperature 36.8 C Pulse Rate 64 64 60 Respiratory Rate 20 20 Blood Pressure 123/73 Pulse Oximetry 95 08/02/21 02:00 08/02/21 03:49 08/02/21 04:00 Temperature 3
[2021-08-02 21:50] LABS: Glucose Point of Care 104 mg/dl (65-105)
[2021-08-02 21:51] LABS: Glucose Point of Care 116 mg/dl (65-105)
[2021-08-03] VITALS (17 sets, daily range): BP systolic 92–134; BP diastolic 48–81; PULSE 61–95; RESP 20–32; TEMP 36.6–37.7; O2SAT 92–100; BMI 10.0
[2021-08-03 02:20] LABS: Pneumococcal Antigen Urine Not Detected (Not Detected)
[2021-08-03] MEDS: ACETAMINOPHEN 325 MG TABLET 650 MG PO ×2 (02:24→21:23)
[2021-08-03] MEDS: TIZANIDINE HCL 2 MG TABLET 1 MG PO (04:02)
[2021-08-03] MEDS: ENOXAPARIN 80 MG/0.8 ML SYRINGE 65 MG SUB-Q ×2 (05:10→18:43)
[2021-08-03] MEDS: PIPERACILLIN/TAZOBACTAM SOD 4.5 GM in SODIUM CHLORIDE 0.9% IV 100 ML 200 ML IVPB ×4 (05:11→23:13)
[2021-08-03 05:18] LABS: Hematocrit 35.8 % (42.0-52.0); Hemoglobin 11.7 g/dL (14.0-18.0); Mean Corpuscular HGB Conc 32.7 g/dl (32-36); Mean Corpuscular Hemoglobin 25.4 pg (26-34); Mean Corpuscular Volume 77.7 fl (80-100); Mean Platelet Volume 10.2 fl (7.4-10.4); Platelet Count Result 267 k/mm3 (150-375); Red Blood Count 4.61 M/mm3 (4.6-6.20); Red Cell Distribution Width 17.2 % (11.5-14.5); White Blood Count 9.1 K/mm3 (4.5-10.0)
[2021-08-03 05:34] LABS: Anion Gap 7 mmol/L (8-16); Blood Urea Nitrogen 13 mg/dL (9-20); Calcium 9.2 mg/dL (8.4-10.2); Carbon Dioxide 21 mmol/L (22-30); Chloride 109 mmol/L (98-107); Estimated CRCL calculation 57 ml/min; Estimated Glomerular Filt Rate > 60; Glucose 123 mg/dL (65-110); Potassium 4.2 mmol/L (3.4-5.0); Sodium 137 mmol/L (137-145)
[2021-08-03 05:46] LABS: Vancomycin Trough 14.3 ug/mL (10.0-20.0)
[2021-08-03 06:15] LABS: Magnesium 2.1 mg/dL (1.6-2.3); Phosphorus 2.1 mg/dL (2.5-4.5)
[2021-08-03 09:27] LABS: Glucose Point of Care 142 mg/dl (65-105)
--- NOTE | 2021-08-03 09:43 | PM.PNCARD ---
Progress Note: A&P Additional Plan 76-year-old man with: Troponin elevation as a result of hypoxemia because of significant COPD exacerbation and multi lobar pneumonia. No ischemic evaluation of this is recommended or planned. Cardiology will formally sign off at this time Mainor Rivas MD [facility] Subjective Date/time seen: Date of service: 08/03/21 09:43 Interval history: Follow-up visit in this 76-year-old man with: Chronic coronary artery disease presenting to the hospital with severe respiratory distress very tachycardic sinus rhythm with right bundle branch block and bifascicular block. Patient in the field was declared as a STEMI. This was canceled after Dr. Rivas evaluated EKG in ER. Date of service 08/03/2021: Patient without cardiovascular complaints. Follow-up over the weekend shows no apparent cardiac problems. Troponin elevation has been attributed to significant COPD exacerbation. He also appears to have multi lobar pneumonia. Exam Const: General: comfortable and no acute distress; No confusion Orientation/consciousness: No confusion Other: 76-year-old gentleman who is relatively comfortable barrel-chested with nasal cannula oxygen in place Color better, looks better today HENMT: Head: normal to inspection Ears: hearing grossly normal bilaterally Mouth: Yes Normal oral and palatal mucosa present and Yes moist mucous membranes Eyes: General: appearance normal, both eyes and all related structures Sclera: sclerae normal Pupils: Equal, round and reactive pupils present Neck: Neck: supple and no JVD Resp: Effort & Inspection: prolonged expiratory phase Auscultation: wheezes and diminished lung sounds Other: Breath sounds are diminished throughout both lung johnson Cardio: Rate: regular rate Rhythm: regular rhythm Heart sounds: no murmurs GI: Auscultation: normal bowel sounds Skin: General skin exam: normal color Neuro: General: No confusion Cranial nerves: Yes Equal, round and reactive pupils present and Yes Normal hearing present Cognition (Neuro): normal cognition Speech: No Abnormal speech present Extrem: General: normal to inspection Other: distal pulses intact Psych: Mental Status: mental status grossly normal Objective Data Vital Signs Vital Signs: Vital Signs - 24 hr 08/02/21 10:00 08/02/21 12:00 08/02/21 13:46 Temperature 36.6 C Pulse Rate 65 69 Respiratory Rate 18 Blood Pressure 125/81 Pulse Oximetry 93 90 08/02/21 14:00 08/02/21 15:46 08/02/21 16:00 Temperature 36.4 C L Pulse Rate 72 72 87 Respiratory Rate 16 Blood Pressure 106/69 Pulse Oximetry 95 90 08/02/21 18:00 08/02/21 20:00 08/02/21 21:15 Temperature 36.6 C Pulse Rate 90 67 62 Respiratory Rate 20 22 H Blood Pressure 106/71 Pulse Oximetry 92 90 08/02/21 22:00 08/03/21 00:00 08/03/21 02:00 Temperature 36.8 C Pulse Rate 64 64 61 Respiratory Rate 26 H Blood Pressure 95/48 L Pulse Oximetry 97 08/03/21 03:24 08/03/21 04:00 08/03/21 06:00 Temperature 36.6 C Pulse Rate 67 69 Respiratory Rate 28 H Blood Pressure 134/70 Pulse Oximetry 93 98 Intake/Output Intake/Output: Intake & Output 07/31/21 08/01/21 08/02/21 08/03/21 23:59 23:59 23:59 23:59 Intake Total 2520 2060 1730 350 Output Total 2175 2150 1050 600 Balance 345 -90 680 -250 Meds/Results Medications: Active Medications Generic Name Dose Route Start Last Admin Trade Name Freq PRN Reason Stop Dose Admin Acetaminophen 650 mg 07/29/21 13:27 08/03/21 02:24 Acetaminophen 325 Mg Tablet PO 650 mg Q4H PRN Administration Mild Pain (1-3) or Fever Albuterol 5 mg 08/01/21 22:09 Albuterol Sulfate Neb 2.5 Mg/0.5 Ml Inh INHALATION Q4HRT PRN Shortness Of Breath Or Wheezing Aspirin 81 mg 07/30/21 09:00 08/02/21 08:36 Aspirin 81 Mg Chewable Tablet PO 81 mg DAILY JOSEPH Administration Atorvastatin Calcium 80 mg 07/30/21 09:00 08/02/21 0
[2021-08-03] MEDS: ATORVASTATIN 40 MG TABLET 80 MG PO (10:14)
[2021-08-03] MEDS: CITALOPRAM HYDROBROMIDE 20 MG TABLET PO (10:15)
[2021-08-03] MEDS: ASPIRIN 81 MG CHEWABLE TABLET PO (10:15)
[2021-08-03] MEDS: CHOLECALCIFEROL 1,000 UNITS TABLET 1000 UNITS PO (10:15)
[2021-08-03] MEDS: PANTOPRAZOLE 40 MG TABLET PO (10:15)
[2021-08-03] MEDS: lisinopriL 5 MG TABLET PO (10:15)
[2021-08-03] MEDS: TAMSULOSIN HCL 0.4 MG CAPSULE PO (10:15)
[2021-08-03] MEDS: FLUTICASONE/SALMETEROL 230-21 MCG INHALER 1 PUFF 2 PUFF INHALATION ×2 (10:16→22:37)
[2021-08-03] MEDS: UMECLIDINIUM BROMIDE 62.5 MCG ELLIPTA 1 PUFF INHALATION (10:16)
[2021-08-03] MEDS: POTASSIUM PHOS/SODIUM PHOS 250 MG TABLET PO (11:00)
--- NOTE | 2021-08-03 12:25 | PM.IMPN ---
Progress Note: A&P Assessment and Plan (1) Sepsis: Qualifiers: Acute respiratory failure type: with hypoxia Sepsis acute organ dysfunction status: with acute organ dysfunction Sepsis type: sepsis due to unspecified organism Severe sepsis acute organ dysfunction type: acute respiratory failure Severe sepsis shock status: without septic shock Qualified Code(s): A41.9 - Sepsis, unspecified organism; R65.20 - Severe sepsis without septic shock; J96.01 - Acute respiratory failure with hypoxia Code(s): A41.9 - Sepsis, unspecified organism Status: Acute Assessment and Plan: Present on admission and supported by fever, tachycardia, tachypnea, leukocytosis, and lactic acidosis. Lactic acid level has normalized. White count also has normalized. Secondary to pneumonia. Coag-negative staph isolated from 1 of the blood culture bottles most likely contaminant. Sputum culture negative. Currently being treated with broad-spectrum IV antibiotics. Resolved. (2) Acute and chronic respiratory failure with hypoxia: Onset Date: ~07/2021 Code(s): J96.21 - Acute and chronic respiratory failure with hypoxia Status: Acute Assessment and Plan: Most likely related to pneumonia and COPD. Patient had an elevated D-dimer but CTA chest 08/02 showing ground-glass opacities and septal thickening in the right lung and basilar left lower lobe but no pulmonary embolus. Lower extremity venous Doppler was negative for DVT. Clinically improving with the antibiotics. Continue to wean oxygen as tolerated. Appreciate Pulmonary input. (3) Multifocal pneumonia: Code(s): J18.9 - Pneumonia, unspecified organism Status: Acute Assessment and Plan: COVID-19 nasal swab was negative. CTA of the chest showing ground-glass opacities and septal thickening of the right lung and left lower lobe. Clinically the is is felt to be pneumonia. Blood culture growing coag-negative staph in only 1 bottle felt to be contaminant. Patient O2 requirement is improving. Continue to wean oxygen to baseline. (4) Wide-complex tachycardia: Code(s): I47.2 - Ventricular tachycardia Status: Acute Assessment and Plan: Wide complex tachycardia noted on arrival to the emergency department. Given the severity of the patient's distress, the decision was made to attempt cardioversion x1 though it had no effect. Once patient was transition to BiPAP he became much more stable. Sinus tachycardia with right bundle branch block and no evidence for ventricular tachycardia. Cardiology following and appreciate their input. (5) Elevated troponin: Code(s): R77.8 - Other specified abnormalities of plasma proteins Status: Acute Assessment and Plan: Patient had elevated troponin on admission and climbed to 1.1. Patient was cardioverted in the emergency room which could have contributed to the elevated troponin. It was not felt the patient had acute coronary syndrome. More likely troponin elevation related to sepsis and acute respiratory failure. Plan for ischemic evaluation once stable. (6) Chronic obstructive pulmonary disease: Qualifiers: COPD type: unspecified COPD Qualified Code(s): J44.9 - Chronic obstructive pulmonary disease, unspecified Code(s): J44.9 - Chronic obstructive pulmonary disease, unspecified Status: Acute Assessment and Plan: Stable. No wheezing. Continue inhalers. Appreciate Pulmonary input. (7) Type 2 diabetes mellitus with hyperglycemia: Qualifiers: Diabetes mellitus buttermaker insulin use: unspecified group home insulin use status Qualified Code(s): E11.65 - Type 2 diabetes mellitus with hyperglycemia Code(s): E11.65 - Type 2 diabetes mellitus with hyperglycemia Status: Acute Assessment and Plan: Patient with a 9 gap metabolic acidosis. Beta hydroxybutyrate level was normal. A1c 6.4. It was not felt pa
[2021-08-03 13:08] LABS: Glucose Point of Care 131 mg/dl (65-105)
--- NOTE | 2021-08-03 13:41 | PM.PNPUL ---
Progress Note: A&P Assessment and Plan (1) Multifocal pneumonia: Code(s): J18.9 - Pneumonia, unspecified organism Status: Acute Assessment and Plan: 08/02 atchy bilateral infiltrates R>L, coag negative staph from BC, likely contaminant. No pathogen isolated on his sputum. Urine antigens for pneumococcus and Legionella are pending. He is requiring high amount of O2 on a High Flow system 55 L/min and 50ish% O2. 08/03 sputum with rare gram-positive cocci in clusters. COVID negative on 07/29 21. Urine pneumococcal antigen is negative, patient is afebrile with improved white blood cell count and clinically improved on ceftriaxone and doxycycline on 07/29 and then cahnged to vancomycin and Zosyn starting 07/30. still requiring 10 L nasal cannula oxygen which is increased from his baseline at 4 at rest. (2) Chronic obstructive pulmonary disease: Qualifiers: COPD type: unspecified COPD Qualified Code(s): J44.9 - Chronic obstructive pulmonary disease, unspecified Code(s): J44.9 - Chronic obstructive pulmonary disease, unspecified Status: Acute Assessment and Plan: 08/02 Heavy tobacco, started age 14, up to 1.5 ppd, quit 15 years ago; smoked 47 years x 1 - 1.5 ppd, over 50 pack years. At home uses Advair and think he is also on Spiriva as well as albuterol nebulized several times a day. These inhaled medications are not listed with his home medications. Will start Advair & Incruse, chagne albuterol nebs to p.r.n. and stop ipratropium nebs. 08/03 No wheezes on exam today. I agree with Advair and increased Ellipta. No need for systemic or oral steroids at this time. (3) Pulmonary hypertension: Code(s): I27.20 - Pulmonary hypertension, unspecified Status: Acute Assessment and Plan: Elevated RVSP on echo 55 mmHg 07/30/21 This is likely multifactorial and secondary to COPD and hypoxemia. He says that he was not aware of this diagnosis. Has not been tested for sleep apnea. He is followed by Dr Tomas in [place]. 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 He was admitted Jul 29 with increased shortness of breath, was in the ICU, was transferred out after treatment of sepsis due to bilateral pneumonia, and is requiring High Flow O2 to maintain adequate saturation. He has COPD, sees Dr Tomas, has been on O2 about a year, 3 L at rest and 4-5 L/min with exertion. He feels much better since admission, has little sputum, no wheezing, modest shortness of breath. 08/02/21 18:32 This 76 year old man is seen in follow up for acute on chronic hypoxemic respiratory failure due to pneumonia, requires high flow O2. Has COPD. He feels better, less short of breath. 08/03 patient tells me that he is breathing better and back to his normal. His cough is better and his phlegm is better. He is still producing clear phlegm with no hemoptysis. This morning the patient was on 10 L high-flow nasal cannula but then had desaturations is moving around in bed and required 15 L when I saw him with saturations 98%. Currently his wean back to 10 L nasal cannula with saturations 94%. He told me he uses 4 L at rest and at night and 6 L with activity at home and he can walk 35 ft on a good day. White blood cell count is 9.1 and he is afebrile. DATA: EXAMINATION: CTA chest PE protocol DATE: 08/02/2021 10:06 INDICATION: Hypoxia. TECHNIQUE: Computed tomography angiography (CTA) of the chest was performed with 100 mL Omnipaque-350 intravenous contrast timed to evaluate the pulmonary arteries. Coronal maximum intensity projection 3D-reconstructions were created by the technologist. Automated exposure control and iterative reconstruction technique were employed. The dose-length product was 355.56 mGy-cm. COMPARISON: Chest CT 09/06/2019 FINDINGS: There is severe emp
[2021-08-03 17:03] LABS: Glucose Point of Care 113 mg/dl (65-105)
[2021-08-03 19:37] LABS: Legionella pneumophila Ag Ur Not Detected (Not Detected)
[2021-08-03 20:55] LABS: Glucose Point of Care 124 mg/dl (65-105)
[2021-08-03] MEDS: ONDANSETRON INJ 4 MG/2 ML VIAL IV PUSH (21:25)
[2021-08-04] VITALS (45 sets, daily range): BP systolic 100–158; BP diastolic 42–85; PULSE 86–128; RESP 12–40; TEMP 35.6–37.5; O2SAT 74–100
[2021-08-04 05:02] LABS: Hematocrit 29.3 % (42.0-52.0); Mean Corpuscular HGB Conc 30.7 g/dl (32-36); Mean Corpuscular Hemoglobin 25.6 pg (26-34); Mean Corpuscular Volume 83.2 fl (80-100); Mean Platelet Volume 10.7 fl (7.4-10.4); Platelet Count Result 324 k/mm3 (150-375); Red Blood Count 3.52 M/mm3 (4.6-6.20); Red Cell Distribution Width 17.4 % (11.5-14.5); White Blood Count 15.8 K/mm3 (4.5-10.0)
[2021-08-04 05:17] LABS: Alanine Aminotransferase 41 U/L (4-50); Albumin Level 3.5 g/dL (3.5-5.1); Alkaline Phosphatase 57 U/L (38-126); Anion Gap 10 mmol/L (8-16); Aspartate Amino Transferase 49 U/L (17-59); Bilirubin,Total 0.9 mg/dL (0.2-1.3); Blood Urea Nitrogen 19 mg/dL (9-20); Calcium 8.3 mg/dL (8.4-10.2); Carbon Dioxide 17 mmol/L (22-30); Chloride 109 mmol/L (98-107); Estimated CRCL calculation 35 ml/min; Estimated Glomerular Filt Rate 46; Glucose 200 mg/dL (65-110); Magnesium 2.1 mg/dL (1.6-2.3); Potassium 3.6 mmol/L (3.4-5.0); Sodium 136 mmol/L (137-145)
[2021-08-04] MEDS: ENOXAPARIN 80 MG/0.8 ML SYRINGE 65 MG SUB-Q (06:32)
[2021-08-04] MEDS: PIPERACILLIN/TAZOBACTAM SOD 4.5 GM in SODIUM CHLORIDE 0.9% IV 100 ML 200 ML IVPB (06:33)
[2021-08-04] MEDS: ACETAMINOPHEN 325 MG TABLET 650 MG PO (06:46)
--- NOTE | 2021-08-04 08:49 | PM.IMPN ---
Progress Note: A&P Assessment and Plan (1) Acute and chronic respiratory failure with hypoxia: Onset Date: ~07/2021 Code(s): J96.21 - Acute and chronic respiratory failure with hypoxia Status: Acute Assessment and Plan: Most likely related to pneumonia and COPD. Patient had an elevated D-dimer but CTA chest 08/02 showing ground-glass opacities and septal thickening in the right lung and basilar left lower lobe but no pulmonary embolus. Lower extremity venous Doppler was negative for DVT. Patient was clinically improving with the antibiotics until 08/04/21 when he developed respiratory failure. Etiology unclear. Doubt PE since he was on full dose Lovenox and recent negative CTA. Doubt CHF. No wheezing to suggest COPD exacerbation. Elevated Trop - consider ischemic disease. Hgb dropped today so consider internal bleeding or possibly aspiration. Stat CXR reviewed personally and actually has improvement. ABG ordered but difficult to obtain. Discussed with Pulmonary and Fast Food Server. Patient moved to ICU for further care. 40 minutes spent on critical care time (2) Sepsis: Qualifiers: Acute respiratory failure type: with hypoxia Sepsis acute organ dysfunction status: with acute organ dysfunction Sepsis type: sepsis due to unspecified organism Severe sepsis acute organ dysfunction type: acute respiratory failure Severe sepsis shock status: without septic shock Qualified Code(s): A41.9 - Sepsis, unspecified organism; R65.20 - Severe sepsis without septic shock; J96.01 - Acute respiratory failure with hypoxia Code(s): A41.9 - Sepsis, unspecified organism Status: Acute Assessment and Plan: Present on admission and supported by fever, tachycardia, tachypnea, leukocytosis, and lactic acidosis secondary to pneumonia. Lactic acid level has normalized. White count had normalized but higher today related to the respiratory failure. Coag-negative staph isolated from 1 of the blood culture bottles most likely contaminant. Sputum culture negative. Now with shock possibly septic but consider hypovolemic given how pale he appeared and the drop in the Hgb. (3) Multifocal pneumonia: Code(s): J18.9 - Pneumonia, unspecified organism Status: Acute Assessment and Plan: COVID-19 nasal swab was negative. CTA of the chest showing ground-glass opacities and septal thickening of the right lung and left lower lobe. Clinically the is is felt to be pneumonia. Blood culture growing coag-negative staph in only 1 bottle felt to be contaminant. As above (4) JACKELYN (acute kidney injury): Code(s): N17.9 - Acute kidney failure, unspecified Status: Acute Assessment and Plan: Patient developed JACKELYN. Cr normal at baseline but Cr 1.5 today. He was on Vanco and Zosyn which can contribute to this and he received contrast recently. Suspect more likely related to his acute respiroatory failure and HoTN. His Abx were adjusted and lisinopril held. IV fluids ordered. Follow. Place Simpson to exclude urine retentin but bladder does not feel overdistended. (5) Wide-complex tachycardia: Code(s): I47.2 - Ventricular tachycardia Status: Acute Assessment and Plan: Wide complex tachycardia noted on arrival to the emergency department. Given the severity of the patient's distress, the decision was made to attempt cardioversion x1 though it had no effect. Once patient was transition to BiPAP he became much more stable. Sinus tachycardia with right bundle branch block and no evidence for ventricular tachycardia. Cardiology following and appreciate their input. (6) Elevated troponin: Code(s): R77.8 - Other specified abnormalities of plasma proteins Status: Acute Assessment and Plan: Patient had elevated troponin on admission and climbed to 1.1. Patient was cardioverted in the emergency room which could have contributed to the elevated troponin. It was not felt the pa
[2021-08-04] MEDS: LORazepam INJ (*CRX) 2 MG/ML VIAL 0.5 MG IV PUSH (08:51)
[2021-08-04 08:57] LABS: Glucose Point of Care 169 mg/dl (65-105)
--- NOTE | 2021-08-04 09:09 | PC.NURSE ---
0745-noted pulse ox not registering on screen, entered pt's room and pt had oxygen and pulse ox pulled off. pt conscious but struggling to breathe, lung sounds clear but tight and diminished. Pt stated, abdomen was tender on rt upper and lower quadrant. abdomen was soft, and noted bruising where lovenox shots had been administered. BP 115 systolic, hear rate 122. 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 Attempted multiple different pulse ox monitors and sites, but still unable to get a reading. Also noted large rt forearm and elbow purple bruise. increased airvo to 100% and continued the 50L. Called Dr. Santiago and updated to conditioned assessed. Orders received. 0755-Dr. Santiago at bedside. Attempted to flush INT, but it was occluded. New 20G IV placed left AC. Sedation given per dr. Santiago. Compensation And Benefits Advisor at bedside and received verbal order to move to ICU to intubate. 1980-pt belongings walked to ICU 4.
--- NOTE | 2021-08-04 09:29 | PCRCNOTE ---
Window of time for administration has passed. See next scheduled administration.Pt intubated, MDIs not adminstered.
[2021-08-04 10:12] LABS: Mean Corpuscular HGB Conc 30.6 g/dl (32-36); Mean Corpuscular Hemoglobin 26.2 pg (26-34); Mean Corpuscular Volume 85.6 fl (80-100); Mean Platelet Volume 10.6 fl (7.4-10.4); Platelet Count Result 239 k/mm3 (150-375); Red Blood Count 2.29 M/mm3 (4.6-6.20); Red Cell Distribution Width 17.7 % (11.5-14.5); White Blood Count 36.6 K/mm3 (4.5-10.0)
[2021-08-04 10:24] LABS: INR 2.2; Prothrombin Time 23.5 Seconds (11.1-14.7)
[2021-08-04 10:25] LABS: Partial Thromboplastin Time 49.5 SECONDS (22.3-36.8)
[2021-08-04 10:30] LABS: Alveolar/Arterial O2 Gradient 374.2 mmHg; Base Excess ABG -14.1 mEq/l (+/-2.0); Fractional Inspired Oxygen 100 %; HCO3 ABG 12.9 mEq/l (22.0-26.0); Oxygen Content ABG 10.6 %vol (16.0-22.0); Oxygen Saturation ABG 99.6 % (95.0-100.0); Oxyhemoglobin 96.7 % THb (90.0-100.0); PCO2 ABG 34.2 mmHg (35.0-45.0); PO2 ABG 304.6 mmHg (80.0-100.0); PO2 FiO2 Ratio Arterial Blood 3.05 %
[2021-08-04 10:32] LABS: Albumin Level 2.4 g/dL (3.5-5.1); Alkaline Phosphatase 54 U/L (38-126); Anion Gap 22 mmol/L (8-16); Bilirubin,Total 0.7 mg/dL (0.2-1.3); Blood Urea Nitrogen 21 mg/dL (9-20); Calcium 6.8 mg/dL (8.4-10.2); Carbon Dioxide 16 mmol/L (22-30); Chloride 106 mmol/L (98-107); Estimated CRCL calculation 28 ml/min; Estimated Glomerular Filt Rate 35; Glucose 151 mg/dL (65-110); Magnesium 2.6 mg/dL (1.6-2.3); Phosphorus 11.3 mg/dL (2.5-4.5); Potassium 3.5 mmol/L (3.4-5.0); Sodium 144 mmol/L (137-145)
[2021-08-04 10:32] LABS: pH ABG 7.193 (7.350-7.450)
[2021-08-04 10:33] LABS: Arterial Blood Gas Vent Mode CMV; Arterial Blood Gas Ventilator rate 22 /MIN; Device VENTILATOR; Site Drawn ARTLINE; Total Hemoglobin 7.2 g/dL (12.0-18.0)
[2021-08-04 10:33] LABS: Alanine Aminotransferase 1065 U/L (4-50); Aspartate Amino Transferase 990 U/L (17-59)
[2021-08-04 10:34] LABS: Arterial Blood Gas PEEP 5 cmH2O; Arterial Blood Gas Tidal Volume 350 ml
[2021-08-04 10:39] LABS: Hematocrit 19.6 % (42.0-52.0)
[2021-08-04 10:52] LABS: Band Neutrophils Percent 31 % (0-6); Lymphocytes Absolute Manual 5.12 K/mm3 (1.1-4.5); Metamyelocytes Percent 5 %; Monocytes Absolute Manual 1.46 K/mm3 (0.1-0.90); Monocytes Percent Manual 4 % (3-9); Myelocytes Percent 2 %; Neutrophils Absolute Manual 27.45 K/mm3 (1.3-6.7); Neutrophils Percent Manual 44 % (46-73); Total Cells Counted 100
[2021-08-04 10:54] LABS: Acanthocytes 1+ (NORMAL); Burr Cells 1+ (NORMAL); Ovalocytes 1+ (NORMAL); Platelet Estimate Adequate (Adequate)
--- NOTE | 2021-08-04 10:59 | WPDPROCEDUR ---
Procedures Intubation Intubation Date: 08/04/21 Intubation Time: 09:30 Consent: Verbal consent was obtained from patient who was in respiratory distress and acute respiratory failure. Is referred to my note for further details A pre-procedural Time-Out was completed immediately before starting the procedure and confirmed: Patient Identification, Site, Procedure, Patient Position and the Availability of Requisite Equipment: Yes Sedative: etomidate Mg given: 20 Paralytic: succinylcholine Mg given: 100 Laryngoscope: fiber optic video scope Assist device used: fiber optic device ET tube size: 8 Tube secured depth (cm): 24 Tube secured location: teeth Tube placement confirmation: visualized tube passing through cords, equal breath sounds bilaterally, no breath sounds over epigastrium and confirmation by capnometry Patient tolerated procedure: well Intubation complications: difficult intubation Additional comments: Difficult intubation as patient had deviated larynx with a soft tissue out growth obstructing the view. Also had large amount of secretions the throat. Post intubation I saw pieces of corn and celery in back of his throat who which I was unable to take out with the forceps
--- NOTE | 2021-08-04 11:02 | WPDPROCEDUR ---
Procedures Central Line Placement Right Femoral: Central Line Date: 08/04/21 Central Line Time: 09:50 Performed Emergently - Given emergent patient condition, temporal constraints may have precluded informed consent.: Yes Consent: Patient was emergently intubated and wore had a cardiac arrest. Only 1 peripheral IV of poor-quality. Needed vasopressors and IV fluid bolus. She did done as medical necessity Time Out Performed: Yes Patient Position: supine Patient placed on monitor/pulse ox: Yes Provider Prep: mask, sterile gown, sterile gloves, Max. sterile barrier precautions, cap and hand hygiene with conventional soap/water or alcohol based hand rub Central line prep: 2% Chlorhexidine scrub Sterile US Technique with sterile gel/sterile probe covers: Yes Central line lumen inserted: triple Length (cm): 16 Depth of Insertion (cm): 16 Post Procedure: sutured in place, good blood return, all ports aspirated, flushed, capped, transparent dressing and aseptic technique maintained throughout procedure Patient tolerated procedure: well Complications: none
--- NOTE | 2021-08-04 11:03 | WPDPROCEDUR ---
Procedures Arterial Line Arterial Line Date: 08/04/21 Arterial Line Time: 10:15 Perfomed Emergently - Given emergent patient conditions, temporal constraints may have precluded informed consent: Yes Time Out Performed: Yes Patient Position: supine Director Of Field Sales Prep: sterile gown, sterile gloves, mask and hat Site: right and femoral Site Prep: chlorhexidine and sterile drape Technique used: guide wire technique Length: 12 cm Closure/Dressing: suture and transparent dressing Patient tolerated procedure: well Complications: none Additional comments: Procedure was done emergently a patient had cardiac arrest and we were unable to get accurate noninvasive blood pressure and ABG sample.
--- NOTE | 2021-08-04 11:04 | PDCODEBLUE ---
Code Blue Note Code Blue Note Time Arrived at Code Blue: 0845 Initial Rhythm on Arrival: PEA after intubation Airway Management: Initiated bagging pt on arrival Chest Compressions: Initiated upon arrival Cardiac Rhythm Post Code: Sinus tachycardia Code Blue Summary: I was called to see patient on the floor who was in respiratory distress and hypoxic with saturations unable to be picked. Has history of COPD and also had drop in hemoglobin this morning along with suspected pneumonia. Patient had CTA chest yesterday which was negative for PE. On my arrival patient was in respiratory distress confused agitated and hypotensive. We were unable to get saturations. He did had a pulse at that time. Patient was moved to ICU immediately. Patient was tachycardic. Patient was emergently intubated. Post intubation patient became bradycardic and we were unable to feel pulse. CPR was initiated. During and post intubation patient was noticed to have dark black secretions from his mouth and also had dark black stool. Food was also noticed in the back of his throat post intubation in the form of pieces of corn. CPR was initiated patient was ventilated with Ambu bag. Patient was given 3 rounds of epinephrine 2 amps of bicarb and 1 mg of atropine before ROSC. Once pulse was obtained patient was tachycardic. It appeared to be ventricular tachycardia although he had pulse. He also has bundle-branch block. Was given a dose of amiodarone which helped bring his rate down. His saturation also improved with bagging. Nurses were unable to place NG or OG. I try to place an OG with the laryngoscope but it appeared to be going into the lung hence was taken out.. A central venous catheter and arterial line was emergently placed due to shock, unable to obtain ABG sample, poor IV access need for vasopressors and blood transfusion. Oil Inspector Jim notified patient's family of events. Refer to my consult note for rest of the management plan Total critical care time: 40 minutes except separately billed procedures Due to a high probability of clinically significant, life threatening deterioration, the patient required my highest level of preparedness to intervene emergently and I personally spent this critical care time directly and personally managing the patient. This critical care time included obtaining a history; examining the patient; pulse oximetry; ordering and review of studies; arranging urgent treatment with development of a management plan; evaluation of patient's response to treatment; frequent reassessment; and discussions with other providers. It was exclusive of separately billable procedures and treating other patients and teaching time. Please see Assessment and Plan section and the rest of the note for further information on patient assessment and treatment
[2021-08-04] MEDS: KCL 20 MEQ/SW 100 ML 100 ML 50 MEQ IVPB (11:18)
[2021-08-04] MEDS: CALCIUM CHLOR 1,000MG/100ML NS 1,000 MG/100 ML BAG 100 MG IVPB (11:18)
[2021-08-04] MEDS: SODIUM CHLORIDE 0.9% IV 1,000 ML 999 ML IV CONT (11:24)
[2021-08-04] MEDS: NOREPINEPHRINE 8 MG/D5W 250 ML 8 MG/250 ML BAG 56.25 MG IV CONT (11:26)
[2021-08-04] MEDS: SODIUM BICARBONATE 8.4% 50 MEQ/50 ML SYRINGE 100 MEQ IV PUSH (11:27)
[2021-08-04] MEDS: SODIUM CHLORIDE 0.9% IV 250 ML 30 ML IV CONT ×2 (11:27)
[2021-08-04] MEDS: EPINEPHrine INJ 1 MG in DEXTROSE 5% IN WATER 250 ML 75.3 MG IV CONT (11:42)
[2021-08-04] MEDS: VASOPRESSIN INJ 100 UNITS in DEXTROSE 5% 95 ML IV CONT (11:43)
[2021-08-04] MEDS: ALBUMIN HUMAN 5% 25 GM/500 ML BTL IV CONT (11:44)
--- NOTE | 2021-08-04 11:56 | PCOTNOTE ---
Plan to discharge from OT at this time due to change in medical status. Can re-order if patient condition improves.
[2021-08-04] MEDS: FENTANYL 2,500MCG/NS250ML(*CRX 2,500 MCG/250 ML BAG IV CONT (12:03)
[2021-08-04] MEDS: MIDAZOLAM 100MG/NS 100ML(*CRX) 100 MG/100 ML BAG IV CONT (12:03)
[2021-08-04] MEDS: MIDAZOLAM HCL (*CRX) 2 MG/2 ML VIAL 4 MG IV PUSH (12:04)
--- NOTE | 2021-08-04 12:17 | WPDCNINT ---
Assessment and Plan Assessment and plan (1) JACKELYN (acute kidney injury): Code(s): N17.9 - Acute kidney failure, unspecified Status: Acute Assessment and Plan: Multifactorial Check CK Monitor urine output electrolytes and creatinine Replace low potassium IV fluids Check renal ultrasound (2) Wide-complex tachycardia: Code(s): I47.2 - Ventricular tachycardia Status: Acute Assessment and Plan: Patient appeared to have wide complex tachycardia post resuscitation. Could be a sinus tach with bundle branch block patient had received multiple dose of epinephrine. Patient maintained his pulse He was given 1 dose of amiodarone which helped and rate came currently he has sinus tach with bundle branch block (3) Coronary artery disease: Qualifiers: Associated angina: unspecified whether angina present Coronary Disease-Associated Artery/Lesion type: unspecified vessel or lesion type [place] vs. transplanted heart: unspecified whether robinson or transplanted heart Qualified Code(s): I25.10 - Atherosclerotic heart disease of robinson coronary artery without angina pectoris Code(s): I25.10 - Atherosclerotic heart disease of robinson coronary artery without angina pectoris Status: Acute Assessment and Plan: Echo 07/30 Summary 1. Left ventricular chamber dimension is normal. 2. Left ventricular systolic function is normal, estimated at 55%. 3. There is mildly increased left ventricular wall thickness. 4. Left ventricular septal wall motion is abnormal with septal motion related to bundle branch block. 5. The left ventricular diastolic function is grade I diastolic dysfunction. 6. There is no aortic valve stenosis. 7. There is trace mitral valve regurgitation. 8. There is mild tricuspid valve regurgitation. 9. Moderate pulmonary hypertension, estimated pulmonary arterial systolic pressure is 55 mmHg. 10. Right ventricular chamber dimension is mildly enlarged with prominent moderator band. 11. Right ventricular systolic function is lower limits of normal TAPSE 1.8. (4) Sepsis: Qualifiers: Acute respiratory failure type: with hypoxia Sepsis acute organ dysfunction status: with acute organ dysfunction Sepsis type: sepsis due to unspecified organism Severe sepsis acute organ dysfunction type: acute respiratory failure Severe sepsis shock status: without septic shock Qualified Code(s): A41.9 - Sepsis, unspecified organism; R65.20 - Severe sepsis without septic shock; J96.01 - Acute respiratory failure with hypoxia Code(s): A41.9 - Sepsis, unspecified organism Status: Acute Assessment and Plan: Continue vancomycin and change cefepime to Zosyn Check blood and sputum culture (5) Shock: Code(s): R57.9 - Shock, unspecified Status: Acute Assessment and Plan: Patient is on multiple vasopressors including Levophed vasopressin and epinephrine Sodium bicarbonate given and IV fluids with sodium bicarb Blood products as below mentioned IV albumin Add hydrocortisone (6) Cardiac arrest: Code(s): I46.9 - Cardiac arrest, cause unspecified Status: Acute Assessment and Plan: Secondary to respiratory failure and upper GI bleed Check EKG Recent echocardiogram reviewed Cardiology is already following Hold aspirin and Lovenox at this time (7) Encephalopathy: Code(s): G93.40 - Encephalopathy, unspecified Status: Acute Assessment and Plan: Likely metabolic encephalopathy but patient could have a anoxic injury Due to severe shock, non shockable in-hospital rest, coagulopathy, will do moderate TTM and maintain temperature between 30 for 36? C I will check head CT once patient is more stable (8) Upper GI bleed: Code(s): K92.2 - Gastrointestinal hemorrhage, unspecified Status: Acute Assessment and Plan: DC Lovenox. Protamine 50 mg IV x1 given 3 units of FFP 1 unit of uncrossed bl
[2021-08-04 13:02] LABS: Reflex Lactic Acid Yes or No Add Lactic
[2021-08-04] MEDS: NOREPINEPHRINE 8 MG/D5W 250 ML 8 MG/250 ML BAG 52.5 MG IV CONT (13:57)
[2021-08-04] MEDS: PANTOPRAZOLE SODIUM IV 40 MG VIAL IV PUSH (14:19)
[2021-08-04] MEDS: HYDROCORTISONE SODIUM SUCCINATE 100 MG/2 ML VIAL IV PUSH (14:21)
[2021-08-04] MEDS: SODIUM BICARBONATE 8.4% 150 MEQ in WATER, STERILE FOR INJECTION 950 ML 125 MEQ IV CONT (15:36)
--- NOTE | 2021-08-04 16:23 | WPDGICN ---
Assessment and Plan Assessment and plan (1) Upper GI bleed: Code(s): K92.2 - Gastrointestinal hemorrhage, unspecified Status: Acute Assessment and Plan: As noted above, he had a black tarry stool and some black material was noted in his oropharynx. He would benefit from endoscopy which we can do if his INR comes down to an acceptable level, less than 1.8 (2) Coagulopathy: Code(s): D68.9 - Coagulation defect, unspecified Status: Acute Assessment and Plan: this is likely due to sepsis and DIC. He has received 3 units of fresh frozen plasma he received protamine early this morning has received 2 units of packed red blood cells so far. (3) Cardiac arrest: Code(s): I46.9 - Cardiac arrest, cause unspecified Status: Acute Assessment and Plan: Post resuscitation his QRS complexes seem to be wider, possible bundle branch block. He also has lactic acidosis. (4) Lactic acid acidosis: Code(s): E87.2 - Acidosis Status: Acute Assessment and Plan: This is likely due to his cardio pulmonary arrest. He has marked elevations of his liver enzymes now indicative of shock liver (5) Chronic obstructive pulmonary disease: Qualifiers: COPD type: unspecified COPD Qualified Code(s): J44.9 - Chronic obstructive pulmonary disease, unspecified Code(s): J44.9 - Chronic obstructive pulmonary disease, unspecified Status: Acute Assessment and Plan: he was just hospitalized here a few weeks ago with respiratory distress. He is chronically on home oxygen at 4 liters/minute, so his respiratory status is borderline at best. his presenting complaint this admission was the same,, shortness of breath and COPD exacerbation (6) Transaminitis: Code(s): R74.01 - Elevation of levels of liver transaminase levels Status: Acute Assessment and Plan: his LFTs were normal before his arrest, consequently I am sure that he has ischemic hepatopathy. GI Consult Note Consult date/time: 08/04/21 16:23 HPI: Aime Arriaga is a 76 year old male who was admitted 5 days ago with shortness of breath. He was diagnosed with pneumonia and sepsis. He does have COPD was not positive for COVID. CTA 2 days ago showed severe emphysema and pulmonary edema. This morning he had worsening respiratory distress and then had a respiratory arrest from which he was resuscitated. He was noted to have a black stool and there was black material and some food particles in the oropharynx that was noted during intubation. Prior to this he had had no evidence of gastrointestinal bleeding. His INR is 2.5, and PTT is elevated suggestive of DIC, as he had not been anticoagulated except that he had been started on Lovenox. According to the record he did smoke for 47 years and has a history of coronary artery stents and prior myocardial infarction. Home medications included atorvastatin, hydroxyzine, lisinopril, omeprazole, tamsulosin, citalopram, and sitagliptin. 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 Family History Family History Mother Patient's mothe
[2021-08-04 17:26] LABS: Alveolar/Arterial O2 Gradient 394.1 mmHg; Base Excess ABG -2.7 mEq/l (+/-2.0); Fractional Inspired Oxygen 80 %; HCO3 ABG 23.4 mEq/l (22.0-26.0); Oxygen Content ABG 16.6 %vol (16.0-22.0); Oxygen Saturation ABG 98.3 % (95.0-100.0); Oxyhemoglobin 96.6 % THb (90.0-100.0); PCO2 ABG 45.9 mmHg (35.0-45.0); PO2 ABG 128.1 mmHg (80.0-100.0); Site Drawn ARTLINE; Total Hemoglobin 12.1 g/dL (12.0-18.0); pH ABG 7.326 (7.350-7.450)
[2021-08-04 17:27] LABS: Arterial Blood Gas PEEP 5 cmH2O; Arterial Blood Gas Tidal Volume 350 ml; Arterial Blood Gas Vent Mode CMV; Arterial Blood Gas Ventilator rate 22 /MIN; Device VENTILATOR
[2021-08-04 17:29] LABS: Hematocrit 28.8 % (42.0-52.0); Hemoglobin 9.5 g/dL (14.0-18.0)
[2021-08-04 17:40] LABS: Hemoglobin 9.5 g/dL (14.0-18.0); Mean Corpuscular HGB Conc 33.9 g/dl (32-36); Mean Corpuscular Hemoglobin 28.2 pg (26-34); Mean Corpuscular Volume 83.1 fl (80-100); Mean Platelet Volume 10.9 fl (7.4-10.4); Platelet Count Result 196 k/mm3 (150-375); Red Blood Count 3.37 M/mm3 (4.6-6.20); Red Cell Distribution Width 17.1 % (11.5-14.5)
[2021-08-04 17:45] LABS: Lactic Acid 3.2 mmol/L (0.7-2.1)
[2021-08-04] MEDS: CELLULOSE OXIDIZED 2 x 14 INCH 1 PKT XX (17:46)
[2021-08-04 17:48] LABS: Albumin Level 3.8 g/dL (3.5-5.1); Alkaline Phosphatase 58 U/L (38-126); Anion Gap 7 mmol/L (8-16); Bilirubin,Total 1.3 mg/dL (0.2-1.3); Blood Urea Nitrogen 25 mg/dL (9-20); Calcium 8.2 mg/dL (8.4-10.2); Carbon Dioxide 26 mmol/L (22-30); Chloride 107 mmol/L (98-107); Estimated CRCL calculation 30 ml/min; Estimated Glomerular Filt Rate 37; Glucose 217 mg/dL (65-110); Potassium 4.1 mmol/L (3.4-5.0); Sodium 140 mmol/L (137-145)
[2021-08-04 17:49] LABS: Fibrinogen 188 mg/dl (215-510)
[2021-08-04 17:50] LABS: INR 1.7; Prothrombin Time 19.6 Seconds (11.1-14.7)
[2021-08-04 17:54] LABS: Creatine Kinase 2220 U/L (55-170)
[2021-08-04] MEDS: ALBUMIN HUMAN 25% 25 GM/100 ML 100 ML IVPB (18:22)
[2021-08-04] MEDS: INSULIN ASPART (*BKC) 100 UNITS/ML SUB-Q (18:24)
[2021-08-04 18:46] LABS: Alanine Aminotransferase 3205 U/L (4-50); Aspartate Amino Transferase 2498 U/L (17-59)
[2021-08-04] MEDS: LORazepam INJ (*CRX) 2 MG/ML VIAL IV PUSH (20:45)
[2021-08-04] MEDS: MORPHINE SULFATE INJ (*CRX) 10 MG/ML AMP 5 MG IV PUSH (20:45)
--- NOTE | 2021-08-04 21:30 | PCRCNOTE ---
Terminally extubated at 2037. RN at bedside during process. Family allowed in the room immediately after extubation.
--- NOTE | 2021-08-04 21:36 | PC.NURSE ---
Patients family decided to withdrawal care. The , son and daughter arrived at 1944 and we extubated at 2044 per family request. Patient at 2131 with family at his bedside.
--- NOTE | 2021-08-04 23:11 | PC.NURSE ---
Patient body processed and sent to [facility] [place]. All belongings were sent with family except his teeth. They are in a container and taped to his chest so they can be transported to home with the patient.
--- NOTE | 2021-08-05 14:37 | P.DN_ITS ---
Discharge Summary Date and Time Date of : 08/04/21 Time of : 21:32 Provider Pronounced By: woody hansen Probable Cause of Probable Cause of : Aspiration pneumonitis, GI Bleed and COPD Summary Hospital Course: Patient here for evaluation of shortness of breath. On EMS arrival to his home, the patient's respiratory rate was in the 40s and SpO2 was reportedly in the 50s. He was supported. On arrival to the emergency department he was quite anxious and was noted to be in a wide complex tachycardia. Given the severity of his distress, cardioversion x1 was attempted with no affect. He was transition to BiPAP with benefit. CXR compatible with pneumonia. Patient with sepsis present on admission and supported by fever, tachycardia, tachypnea, leukocytosis, and lactic acidosis. Lactic acid level has normalized. White count also has normalized. [place] secondary to pneumonia. Coag-negative staph isolated from 1 of the blood culture bottles most likely contaminant. Sputum culture negative. He was treated with broad-spectrum IV antibiotics. He had acute on chronic respiratory failure most likely related to pneumonia and COPD. Patient had an elevated D-dimer but CTA chest 08/02 showing ground-glass opacities and septal thickening in the right lung and basilar left lower lobe but no pulmonary embolus. Lower extremity venous Doppler was negative for DVT. Patient was clinically improving with the antibiotics until 08/04/21 when he developed recurrent acute respiratory failure. He was on Lovenox. Hgb dropped and he was transfused. [employer] called and ROSC obtained. He was noted to have food substances in his airway so there was concern that he aspirated. He was stabilized. The family was updated by physicians and staff regarding the patient's condition. Later in the evening, the family called back in wishing to proceed with comfort measures. [employer] notified and terminal wean was performed. Patient quickly with family at bedside. Additional Data Confirmation of as documented by pronouncing clinician: Pupillary Reflex, Palpable Pulses, Response to Stimuli, Heart Tones and Breath Sounds Name of Provider Notified: dr weeks Time Provider Notified: 21:36 Provider Requests Autopsy: No Family Requests Autopsy: No Bell Person Notified: Yes Date [facility] Notified of : 08/04/21 Time [facility] Notified of : 22:00
== END 2021-08-04 21:32 | disposition expired | DRG 871 ==
LOC: ANHED 13:46 → ANHICU 16:27 → ANHIMU 08-05 10:31
PROVIDERS: Internal Medicine; Physician Assistant; Admitting Provider Internal Medicine; Emergency Provider Emergency Medicine; PCP Internal Medicine; Visit Provider Internal Medicine
DX: A41.9 Sepsis, unspecified organism (principal); J18.9 Pneumonia, unspecified organism; J69.0 Pneumonitis due to inhalation of food and vomit; E11.10 Type 2 diabetes mellitus with ketoacidosis without coma; J96.21 Acute and chronic respiratory failure with hypoxia; G93.41 Metabolic encephalopathy; D65 Disseminated intravascular coagulation [defibrination syndrome]; K72.00 Acute and subacute hepatic failure without coma; R65.21 Severe sepsis with septic shock; I47.2 Ventricular tachycardia; N17.9 Acute kidney failure, unspecified; K92.2 Gastrointestinal hemorrhage, unspecified; R57.1 Hypovolemic shock; R65.20 Severe sepsis without septic shock; Z20.822 Contact with and (suspected) exposure to COVID-19; I27.20 Pulmonary hypertension, unspecified; I46.9 Cardiac arrest, cause unspecified; E11.65 Type 2 diabetes mellitus with hyperglycemia; E11.42 Type 2 diabetes mellitus with diabetic polyneuropathy; I25.2 Old myocardial infarction; I10 Essential (primary) hypertension; I71.4 Abdominal aortic aneurysm, without rupture; I25.10 Atherosclerotic heart disease of native coronary artery without angina pectoris; J43.9 Emphysema, unspecified; R77.8 Other specified abnormalities of plasma proteins; Z87.891 Personal history of nicotine dependence; Z99.81 Dependence on supplemental oxygen; Z79.82 Long term (current) use of aspirin; Z79.84 Long term (current) use of oral hypoglycemic drugs; Z95.5 Presence of coronary angioplasty implant and graft
CPT/HCPCS: 31500; 36415; 36430; 36600; 71045; 71275; 76775; 80048; 80053; 80202; 82010; 82375; 82550; 82805; 82948; 83036; 83050; 83605; 83735; 83880; 84100; 84145; 84439; 84443; 84484; 85014; 85018; 85025; 85027; 85380; 85384; 85610; 85730; 86140; 86850; 86900; 86901; 86920; 87040; 87070; 87077; 87181; 87186; 87205; 87449; 87899; 92950; 93005; 93970; 94002; 94640; 96365; 96367; 96375; 96376; 97162; 97165; 99291; A9270; C1751; C8929; C9113; C9803; J0171; J0696; J1100; J1650; J1720; J1815; J2060; J2250; J2270; J2370; J2405; J2543; J2720; J3010; J3370; J3480; J7030; J7050; J7060; J7120; P9016; P9017; P9045; P9047; Q9957; Q9967; U0003; U0005